=== PATIENT | male | born 1955 | race Caucasian/White ===

== ENCOUNTER 2024-06-24 19:18 | Inpatient (IN) | payer OTHER, SELFPAY ==
[2024-06-24] VITALS (60 sets, daily range): BP systolic 68–133; BP diastolic 19–103; BMI 29.3; BMI 28.0
--- NOTE | 2024-06-24 16:47 | EDRN ---
1620 - Dr. Sims at the bedside
1631 - cardizem bolus 10mg IVP given with verbal order from Dr. Sims
1636 - amiodarone bolus 150mg IVP given with verbal order from Dr. Sims
[2024-06-24 16:52] LABS: % Basophils 0.2 % (0-2); % Eosinophils 0.2 % (0-6); % Immature Granulocytes 0.3 % (0-0.5); % Lymphocytes 16.8 % (20.5-51.1); % Monocytes 14.4 % (1.7-9.3); % Neutrophils 68.1 % (42.2-75.2); Absolute Lymphocytes 2.1 10^3/uL (1.2-3.4); Absolute Monocytes 1.8 10^3/uL (0.1-0.6); Absolute Neutrophils 8.3 10^3/uL (1.4-6.5); Hematocrit 44.6 % (39.0-52.0); Hemoglobin 16.1 g/dL (13.0-18.0); Mean Corp Hgb Conc. 36.1 g/dL (33.0-37.0); Mean Corpuscular Hgb 32.5 pg (27.0-31.0); Mean Corpuscular Volume 89.9 fL (80.0-94.0); Mean Platelet Volume 10.1 fL (7.4-10.4); Nucleated Red Blood Cells % 0 % (-); Platelet Count 240 10^3/uL (130-400); Red Blood Cell Count 4.96 10^6/uL (4.70-6.10); Red Cell Dist. Width 12.6 % (11.5-14.5); White Blood Cell Count 12.2 10^3/uL (4.8-10.8)
[2024-06-24 17:01] LABS: APTT 27.5 Sec (23.4-35.0); INR 1.08; PT 14.3 Sec (11.4-14.6)
--- NOTE | 2024-06-24 17:01 | EDRN ---
Patient with worseninghypertensive with BP in the 60s systolic
Dr. Gatica at the bedside to cardiovert the patient per on-call transportation economics teacher Bernie.
1655 50mcg Fentanyl IVP given with verbal orders from Dr. Miguel
1655 shock delivered at 200j with Dr. Gatica at the bedside and 2 nurses.
Patient currently parrish in the rate of 30s after shock.
1658 atropine IVP given with verbal order from Dr. Gatica at the bedside.
Dr. miguel contacting cardiology
[2024-06-24 17:04] LABS: ALT (SGPT) 26 U/L (0-50); AST (SGOT) 49 U/L (17-59); Albumin 4.2 g/dl (3.5-5.0); Alkaline Phosphatase 79 U/L (38-126); Blood Urea Nitrogen 43 mg/dl (9-20); Calcium 9.7 mg/dl (8.4-10.2); Carbon Dioxide 17 mmol/L (22-30); Chloride 102 mmol/L (98-107); Estimated Creatinine Clearance 67 ml/min; Glucose 123 mg/dl (70-99); Potassium 5.2 mmol/L (3.5-5.1); Sodium 129 mmol/L (135-145); Total Bilirubin 2.5 mg/dl (0.2-1.3); eGFR > 60.00
--- NOTE | 2024-06-24 17:49 | CON.CAR ---
Addendum entered and electronically signed by Wendi Milner DO 06/24/24 22:40:
Offered to call patient's family however he declined. He stated that he makes all his own decisions
Original Note:
Consultation
Consultation Request
Date/Time Consultation Requested: 06/24/24
Date/Time Consultation Performed: 06/24/24
Requesting Provider: Sonam Sims
Performing Provider: Dr. Milner
Reason for Consultation: WCT/ CP
Medical History
-
Chief Complaint: CP
History of Present Illness:
I met Shivam Sanchez in the ED bed 23 after he presented by EMS complaining of chest pain and shortness of breath. He reports that last night he developed midsternal chest pain that would radiate to his neck jaw and back which persisted
throughout the day with worsening weakness. He denies syncope. He denies fevers or recent illnesses. He denies nausea vomiting or abdominal pain. Per EMS, nursing facility reported bradycardia and hypotension however he arrived in a wide-complex
tachycardia in the 170s., ER administered 25 mg of IV Cardizem which did not break arrhythmia however did cause hypotension. He was also administered 150 mg of amiodarone. ER proceeded with synchronized cardioversion with 100 J x 1 after 100 mg
of fentanyl due to hypotension with systolic blood pressures in the 60s. Post cardioversion he had a prolonged sinus arrest however did not lose a pulse status post atropine with heart rates now sinus in the 40s and 50s. Blood pressures improved
post cardioversion to 80s over 60s with maps greater than 65. When patient was seen he was sleepy but appropriate and following commands. He reports chest pain had improved and nearly resolved; he offers no further complaints
.
Shivam has a history of alcoholic cirrhosis [facility]. He has needed recurrent paracentesis approximately every 6 months but denies SBP or esophageal varices. He also has a history of hepatitis C, bilateral varicose
veins, anasarca and chronic lower extremity edema. He is maintained on lactulose, spironolactone 100 mg daily, Lasix 80 mg daily, nadolol 20 mg daily, and folate. Is currently a resident of [facility] and has been sober for years. He states
that he had a history of atrial fibrillation he believes during a hospitalization at [facility] in 2022 but is not chronically anticoagulated. He does not routinely follow with a embedded software architect however had been previously seen by someone years ago in
the [facility]. He states that at some point he was offered a pacemaker but refused. He denies a history of known coronary artery disease, stroke or TIA.
Past medical history: Alcoholic cirrhosis with ascites, prior alcohol use disorder, history of atrial fibrillation, history of bradycardia, anasarca/chronic lower extremity edema, history of hepatic encephalopathy, history of rheumatoid arthritis,
hypertension, hyperlipidemia, history of hepatitis C
Past surgical history: Tonsillectomy, paracentesis
Family history: Limited by patient's acute illness.
Past Medical History
Past Medical History: Other (See HPI)
Past Surgical History: Other (See HPI)
Social History
Tobacco: Non-Smoker
Alcohol: Former (Former alcohol)
Drug: None
Living: Snf ([facility])
Employment: Not Employed
Family History
Family History: Unable to Obtain
Allergies / Home Medications
Allergy/AdvReac Type Severity Reaction Status Date / Time
No Known Allergies Allergy Unverified 08/24/23 10:36
Review of Systems
-
History Source: Patient and Physician
All other systems: Negative unless noted
Constitutional: Fatigue and Sleep Disturbance
EENT: No Symptoms
Respiratory: Trouble Breathing
Cardiac: Chest Pain and Diaphoresis
Abdomen/GI: No Symptoms
: No Symptoms
Musculoskeletal: Edema
Neurological: Dizzy and Weakness
Endocrine: No Symptoms
Hematologic/Lymphatic: No Symptoms
Physical Exam
Vital Signs
Pulse Resp BP Pulse Ox
45 20 83/67 92
06/24/24 17:15 06/24/24 17:15 06/24/24 17:15 06/24/24 17:06
Lab Results
06/24/24 16:37
06/24/24 16:37
Troponin I 1.190 ng/ml H* 06/24/24 16:37
Physical Exam
General: Other (68-year-old gentleman appears older than stated age. Sleepy but arousable and appropriate following fentanyl and cardioversion in the ED.)
HEENT: Normocephalic, Anicteric and Moist Mucous Membranes
Respiratory: Other (Bronchovesicular breath sounds, decreased at the bases. No wheezes)
Cardiac: Other (Bradycardic. Positive S1-S2. No murmurs)
GI: Soft, Distended and Other (No significant ascites appreciated)
Musculoskeletal: Edema (++. Bilateral lower extremity varicosity)
Neuro: AO x 3 and Nonfocal/Grossly Intact
Psych: Calm
Impression / Plan
-
Impression:
Unstable wide-complex tachycardia at 170 bpm, VT versus SVT with aberrancy status post cardioversion with 100 J 06/24/2024 in the ED
Post cardioversion sinus arrest
Sinus bradycardia
Chest pain/abnormal EKG/elevated troponin consistent with non-ST elevation myocardial infarct
Possible history of prior atrial fibrillation
Hyponatremia
Hyperkalemia on outpatient Aldactone 100 mg daily
Alcoholic cirrhosis with history of hepatic encephalopathy
Prior history of therapeutic paracentesis, last 6 months ago
Hepatitis C
Anasarca/venous insufficiency/chronic lower extremity edema
History of hypertension
Prior alcoholic
Chest x-ray post cardioversion: No acute cardiopulmonary process
EKG June 24, 1699 post cardioversion, sinus bradycardia, heart rate 51 with PACs, LVH, T wave abnormality in the inferior lateral leads concerning for ischemia
Bedside echocardiogram in the ED: Normal left ventricular size with mild left ventricular hypertrophy. Mildly reduced left ventricular systolic function estimated 40-45% Mid inferior lateral and inferior todd are hypokinetic. Grade 1 diastolic
dysfunction. Dilated, mildly hypokinetic right ventricle. Biatrial dilatation. Trileaflet sclerotic aortic valve without significant stenosis. Trace aortic regurgitation. Mildly dilated aortic root, 4 cm at the sinus of Valsalva, 4 cm at the
proximal ascending aorta. Mild mitral and tricuspid regurgitation. Estimated pulmonary artery systolic pressure 20 mmHg. No significant pericardial effusion.
Plan:
ACS with chest pain/unstable wide-complex tachycardia regarding cardioversion and abnormal EKG
- Case discussed with interventional cardiology. No ST elevation and improved chest pain complaints following cardioversion; will not proceed urgently to [facility].
-Admit to ICU
-Initial cardiac troponin 1.19; trend
- Given hypotension will start Levophed for maps greater than 65
-Aspirin 325 previously given will continue aspirin 81 mg daily
- Coagulation profile within normal limits; will start IV heparin without bolus
- Will hold AV bakari blocking agents and further amiodarone as heart rates are currently sinus in the mid 40s
- Maintain pacer pads
- Monitor closely on telemetry for recurrent arrhythmia. If heart rates improve or if further arrhythmia, we will start amiodarone
-Check lactate
-Hold outpatient nadolol and Lasix
-TSH normal, 3.16
-Check lipid profile and will empirically start atorvastatin 20 mg daily
- Expectant left heart catheterization this admission
Alcoholic cirrhosis/hepatitis C with history of hepatic encephalopathy and ascites requiring paracentesis
- Coagulation profile within normal limits
- Hemoglobin, platelet count normal. LFTs within normal limits. Ammonia level normal.
- Hold outpatient spironolactone
Data Reviewed
-
EKG: Tracing Personally Visualized and interpreted
Radiology: Report Reviewed by me
Labs: Labs Reviewed by me
Old Records: Reviewed
Total Time Spent with Patient (in minutes): 60
[2024-06-24 17:50] LABS: Ammonia 20 umol/L (9-30); Phosphorus 4.5 mg/dl (2.5-4.5)
[2024-06-24] MEDS: LEVOPHED 250 IV (17:50)
--- NOTE | 2024-06-24 18:04 | ED.GENMED ---
History of Present Illness
General
Chief Complaint: Chest Pain
Time Seen by Provider: 06/24/24 16:38
History of Present Illness
History of Present Illness:
68-year-old male with prior history of alcohol abuse with alcoholic liver disease and hypertension presenting from nursing facility for report of bradycardia and hypotension. Patient arrives by medics, noted to be tachycardic to the 170s and
hypertension. Patient arrives complaining of substernal chest pain and difficulty breathing. Denies any history of heart attack in the past, however does report that he has had an elevated heart rate in the past. He also has prior history of
atrial fibrillation, however is not on any rate controlling medications or blood thinners. Denies fever or cough. Denies abdominal pain. Denies any recent history of alcohol abuse, has not drank in several years. Patient used to have to get
paracentesis, however was now maintained on water pills. Denies additional acute medical complaints
Past History
Past History
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
ED Past Surgical History: Tonsilectomy (and adenoids)
Social History
Tobacco: Former smoker
Alcohol: Former
Personal:
Living: long-term ([facility])
Phy Exam
Physical Exam
Physical Exam:
General: Well-appearing, no clinical signs of dehydration, nontoxic and in no acute distress
HEENT: protecting airway
Neck: appears supple
CV: tachycardic, regular rhythm, no evidence of cyanosis
Resp: No accessory muscle use, no increased work of breathing, lungs clear to auscultation bilaterally
Abd: Soft and non-distended, no tenderness to palpation
Extremities: No deformities, no swelling
Neuro: alert, no focal neurologic deficit
: deferred
Rectal: deferred
Psych: Normal affect
Skin: Intact
Scores
Heart Score for Chest Pain Patients
STEMI patient?: No
History: Moderately Suspicious
ECG: Significant ST-Depression
Age: >/= 65 years
Risk Factors: 1 or 2 Risk Factors
Troponin: >1 - <3 x Normal Limit
Heart Score for Chest Pain Patients: 7
Heart Score Risk: 72.7 % MACE over next 6 weeks
Course
Orders/Labs/Results
Orders:
Orders
06/24/24 Breakfast
Cholesterol Lowering
At Your Request: Full Participation
Cholesterol Lowering: Sodium, 2 Gram
06/24/24 16:25
EKG [Electrocardiogram (*1)] Urgent
Reason for Study: Chest Pain
EKG- Treatment ONCE
06/24/24 16:29
Diltiazem HCl [Cardizem] 25 mg .ROUTE .STK-MED ONE
06/24/24 16:34
Amiodarone [Cordarone] 150 mg .ROUTE .STK-MED ONE
06/24/24 16:37
Complete Blood Count/With Diff Urgent
Comprehensive Metabolic Panel Urgent
PTT Urgent
Prothrombin Time Urgent
Troponin I Urgent
06/24/24 16:45
Amiodarone [Cordarone] 900 mg DEXTROSE 5% PVC-free BAG [D5W PVC-free BAG] 500 ml IV PER PROTOCOL
06/24/24 16:53
Fentanyl Citrate/Pf [Sublimaze] 100 mcg .ROUTE .STK-MED ONE
06/24/24 16:57
EKG [Electrocardiogram (*1)] Stat
Reason for Study: Bradycardia / Tachycardia
Atropine Sulfate [Atropine 0.1 mg/ml Syringe] 1 mg .ROUTE .STK-MED ONE
06/24/24 16:58
EKG- Treatment ONCE
06/24/24 16:59
EKG [Electrocardiogram (*1)] Urgent
Reason for Study: Chest Pain
EKG- Treatment ONCE
06/24/24 17:20
Echo 2D MMode Color/Doppler [Echo 2D MMode Color/Doppler] Urgent
Reason for Study: cardiac
06/24/24 17:23
Ammonia Urgent
Magnesium Urgent
Phosphorus Urgent
06/24/24 17:30
DOPamine 400 MG/D5W 250 ML [DOPamine 400 MG] 400 mg in 250 ml IV PER PROTOCOL
Currently infusing. Continue current dose and titrate:: Yes
Titrate to keep:: MAP > 65 mmHg
Titrate by mcg/kg/min:: 1-2 mcg/kg/min
Frequency of titrations (minutes):: 15
Maximum dose in ICU in mcg/kg/min:: 20
Maximum dose in IMU in mcg/kg/min:: 10
Begin to taper infusion when:: Remained at goal for 4hrs
Taper by mcg/kg/min:: 1-2 mcg/kg/min
Frequency of taper (minutes) if patient maintains goal:: 30
Taper to off?: Yes
If infusion off & no longer maintaining goal:: Contact Provider
06/24/24 17:32
NORepinephrine 4 MG/250 ML [Levophed] 4 mg in 250 ml .ROUTE .STK-MED
06/24/24 18:00
NORepinephrine 4 MG/250 ML [Levophed] 4 mg in 250 ml IV PER PROTOCOL
Initial dose in mcg/min, then titrate:: 2
Titrate to keep:: SBP > 90 mmHg
Titrate by mcg/min:: 1-2 mcg/min
Frequency of titrations (minutes):: 5
Maximum dose in ICU in mcg/min:: 30
Maximum dose in IMU in mcg/min:: 8
Maximum dose in IVU in mcg/min:: 4
Begin to taper infusion when:: Remained at goal for 4hrs
Taper by mcg/min:: 1-2 mcg/min
Frequency of taper (minutes) if patient maintains goal:: 30
Taper to off?: Yes
If infusion off & no longer maintaining goal:: Contact Provider
06/24/24 18:42
CR Chest Portable - 1 View Urgent
Comment:
Reason For Exam: chest pain
Reason Study Needs to be Portable: Patient Unstable
06/24/24 18:45
Admit/Transfer Patient As Directed
Co-Sign Provider:
Level of Care: Inpatient admission
Assign to:: ICU
Physician / Group: [facility]
Diagnosis: NSTEMI
Reason for Hospitalization: NSTEMI
Expected length of stay greater than two midnights?: Yes
ELOS- Estimated Length of Stay in days: 3
I certify the patient meets the requirements for IP care: Yes
PRN Pain Medication Management As Directed
May give lesser potent ordered pain med per pt: Yes
preference::
Protocol:: Medication orders for pain may be administered in a
manner that supports deferring to patient preference
when the pt is:
- Requesting an ordered lesser potent pain medication.
Least to most potent pain medications are defined
as: acetaminophen < NSAID < tramadol < opioids
(morphine, oxycodone, hydromorphone).
- Requesting a lesser dose of the same medication IF
ORDERED.
- Requesting a less intrusive route of administration
if both routes are prescribed by the provider (PO <
IV).
06/24/24 18:46
Code Status As Directed
Resuscitation Status: Full Code
06/24/24 18:55
Lactic Acid Urgent
TSH Reflex To Free T4 Routine
06/24/24 19:33
Aspirin 325 mg PO NOW STA
06/24/24 20:43
Electrocardiogram (*1) Q6H
Reason for Study: Chest Pain
Comment: at admission and Q3H for total of 3, to be done with each troponin
06/24/24 20:43
CARDIOLOGY CONSULT Routine
Consulting Provider: Wendi Milner
Was physician already notified: Yes
Activity As Directed
Activity Level: As Tolerated
INT (Intravenous Needle Therapy) As Directed
Comment: maintain peripheral IV access
Intake/ Output As Directed
Frequency: Per unit guidelines
Vital Signs As Directed
Frequency: q4h
Weight As Directed
Frequency: Daily
DX Deep Vein Thrombosis Video Routine
06/24/24 22:00
Lorazepam [Ativan] 0.5 mg PO HS
Trazodone [Desyrel] 50 mg PO HS
06/24/24 23:30
Troponin I Q3H
Comment: at admit & Q3H for 3 total including ED draws, obtain ECG with each level
06/24/24 23:43
Troponin I Q3H
Comment: at admit & Q3H for 3 total including ED draws, obtain ECG with each level
06/25/24 02:43
Electrocardiogram (*1) Q6H
Reason for Study: Chest Pain
Comment: at admission and Q3H for total of 3, to be done with each troponin
06/25/24 06:00
Basic Metabolic Panel IN AM
Cardiovascular Evaluation IN AM
Complete Blood Count/No Diff IN AM
06/25/24 08:00
Aspirin Chewable [Low Strength Aspirin] 81 mg PO DAILY
FOLic ACID [Folvite] 1 mg PO DAILY
Lactulose [Duphalac/Chronulac] 30 grams PO DAILY
Pantoprazole [Protonix] 40 mg PO DAILY
Tamsulosin [Flomax] 0.4 mg PO DAILY
06/25/24 08:43
Electrocardiogram (*1) Q6H
Reason for Study: Chest Pain
Comment: at admission and Q3H for total of 3, to be done with each troponin
06/25/24 18:00
Enoxaparin Sodium [Lovenox] 40 mg SC QPM
06/26/24 06:00
Basic Metabolic Panel IN AM
Complete Blood Count/No Diff IN AM
06/27/24 06:00
Basic Metabolic Panel IN AM
Complete Blood Count/No Diff IN AM
06/28/24 06:00
Basic Metabolic Panel IN AM
Abnormal Lab Results
06/24/24 06/24/24
16:37 18:55
WBC 12.2 H 10^3/uL
(4.8-10.8)
MCH 32.5 H pg
(27.0-31.0)
Absolute Neuts (auto) 8.3 H 10^3/uL
(1.4-6.5)
Absolute Monos (auto) 1.8 H 10^3/uL
(0.1-0.6)
Lymphocytes % 16.8 L %
(20.5-51.1)
Monocytes % 14.4 H %
(1.7-9.3)
Sodium 129 L mmol/L
(135-145)
Potassium 5.2 H mmol/L
(3.5-5.1)
Carbon Dioxide 17 L mmol/L
(22-30)
BUN 43 H mg/dl
(9-20)
Glucose 123 H mg/dl
(70-99)
Lactic Acid 2.1 H mmol/L
(0.7-2.0)
Total Bilirubin 2.5 H mg/dl
(0.2-1.3)
Troponin I 1.190 H* ng/ml
06/24/24 16:37
06/24/24 16:37
Vital Signs
Initial and Last Documented VS:
Initial Vital Signs
Pulse Resp BP Pulse Ox
172 21 105/73 99
06/24/24 16:30 06/24/24 16:30 06/24/24 16:30 06/24/24 16:30
Last Documented Vital Signs
Temp Pulse Resp BP Pulse Ox
97.8 F 57 20 122/82 97
06/24/24 23:13 06/24/24 21:30 06/24/24 21:30 06/24/24 21:30 06/24/24 21:01
Procedures
Cardioversion
Indication:: Other (Wide-complex tachycardia, unstable)
Performed by:: Sonam Sims DO
Synchronized?: Yes
Energy Used: Other (100 J)
Number of attempts: 1
Successful?: Yes
Complications: bradycardia
ASA Risk Score: Class III
Any reaction or bad outcome to prior sedation/anesthesia?: No history of a reaction
Sedation level to be attained: minimal
Chart and allergies reviewed: Yes
Patient reassessed prior to sedation: Yes
Time out completed at (validating right patient & procedure): 16:55
History of difficult intubation: No
Airway free of obstruction: Yes
Patient has a gag reflex: Yes
Patient is able to open mouth: Yes
Patient has no dentures: Yes
Patient has no loose teeth: Yes
Medication administered by Provider during Moderate Sedation: Other (IV Fentanyl)
Total dose administered: 100
Time drug administered: 16:55
Start Time: 16:55
Stop Time: 17:05
MDM/Problems Addressed
MDM/Problems Addressed:
68-year-old male with history of alcoholic liver disease and high blood pressure presenting for elevated heart rate, chest pain, difficulty breathing. Vital signs on arrival significant for tachycardia and mildly low blood pressure.
Patient seen immediately upon arrival to the hospital given unstable heart rate. However during initial examination, maintaining blood pressure and mental status. Patient reporting chest pain difficulty breathing with ACS being a consideration,
however no clear STEMI criteria given difficult interpretation with profound tachycardia. Due to remote history of A-fib, potential A-fib with RVR. Blood pressure initially stable, trial of diltiazem bolus, however without any success or
improvement of heart rate. At this time concern for patient's wide-complex tachycardia, with blood pressure dropping. However patient maintaining mental status. Amio bolus administered. Will discuss with cardiology on-call with likely plan for
denies cardioversion
17:00 -in discussion with cardiology, given low blood pressure with tachycardia, recommending to grenade cardioversion. Systolic now in the 60s so in discussion with patient, will not perform moderate sedation. 100 mcg of fentanyl given,
synchronized cardioversion to 100 J. Patient subsequently became profoundly bradycardic, however never lost pulses. Heart rate recovered after atropine, now in the 40s to 50s range. No significant sign of heart block. Patient however does
mention that in the past there was mention of potentially needing a pacemaker.
17:20 - Cardiology to bedside. Recommending echo and Levophed for patient's blood pressure. Plan for admission with continued cardiology consultation. Troponin is elevated, however no signs of STEMI on repeat EKG. Aspirin had been administered
prehospital. Will likely benefit from continued cardiac monitoring, potential catheter
*EKG
Interpreted by ED Provider?: Yes
EKG Intrepretation Date: 06/24/24
EKG Intrepretation Time: 18:08
Interpretation: abnormal
Comparison EKG: no comparison EKG present
Heart Rate: 170
Rate: tachycardiac
Rhythm: sinus
[place]: left axis deviation
QRS Pattern: wide non-specific and left vent hypertrophy
Ischemia: non-specific ST changes
*Critical Care Note
Total Time (30-74mins, 75-104mins- exclusive of procedures): 62
comment:
The high probability of a clinically significant, sudden or life threatening deterioration of the cardiovascular system(s) required my full and direct attention, intervention and personal management. The aggregate critical care time was 62 minutes.
This time is in addition to time spent performing reported procedures but includes the following:
[x] Data Review and interpretation
[x] Patient assessment and monitoring of vital signs
[x] Documentation
[x] Medication orders and management
ED Attending Note
-
Portions of this chart may have been created with voice recognition software.� Occasional wrong word or��sound alike� substitutions may have occurred due to the inherent limitations of voice recognition software.
Discharge Plan
Departure
Patient Disposition: Admit
Date of Disposition: 06/24/24
Time of Disposition: 18:24
Presentation/result/management discussed w/ accepting MD/DO: Hospitalist
Patient with high blood pressure during this ER visit?: No
Condition: Critical
Discharge Problem:
Chest pain, Wide-complex tachycardia, Bradycardia, Hypotension
Interventions
Interventions:
*General Assessment Last Done: 06/24/24 16:55
*Neglect/Abuse Screening Last Done: 06/24/24 16:55
*ED- Fall Risk Assessment Last Done: 06/24/24 16:55
*Nursing Disposition Last Done: 06/24/24 20:38
ED- Cardiac Assessment Last Done: 06/24/24 16:55
Discharge Date and Time
Discharge Date/Time: 06/24/24 20:38
--- NOTE | 2024-06-24 18:24 | HPS.HSE ---
Addendum entered and electronically signed by ROBBIE Ruiz 06/24/24 21:24:
patient complained of chest pain. noted to have elevated trop and EKG changes. d/w sound mixer and started him on heparin drip. as per cardiology, if he continued to have chest pain, cardiology plan to take him to cardiac cath.
Original Note:
Family Physician
-
Family Physician: Adria Cifuentes
Chief Complaint
-
chest pain
History of Present Illness
68-year-old male with prior history of alcohol abuse with alcoholic liver disease and hypertension presenting from nursing facility with generalized weakness. he got his Lasix at [facility], since then felt weird, weak. he complained of mid
sternum pain radiating to his neck, jaw and back. he was complaining of sob. denied UNDERWOOD,dizzy or syncope. denied abdominal pain,n,v,d. denied dysuria or hematuria.
upon arrival he was tachycardic and hypotensive. Patient received amiodarone and diltiazem with no relief. Patient underwent cardioversion then he was noted bradycardic for which he received atropine. Patient was started on Levophed for
hypotension. Admitting for further management
patient has hxt of bradycardia but refused pacemaker in the past.
Medical History
Past Medical History
Past Medical History: Reports Other
Additional Past Medical History:
Depression, hypertension, alcoholic cirrhosis of liver with ascites anxiety, GERD, BPH, paroxysmal A-fib
Past Surgical History: Reports Other
Additional Past Surgical History:
Tonsillectomy and adenoidectomy
Social History
Tobacco: Non-smoker
Alcohol: Former
Drug: None
Living: [facility]
Family History
Family History: Not pertinent
Allergies / Home Medications
Allergies reflects when Allergies were last updated in [facility].
Home Medications with original date entered in [facility]
Allergy/Medication List:
Allergies
Allergy/AdvReac Type Severity Reaction Status Date / Time
No Known Allergies Allergy Unverified 08/24/23 10:36
Home Medications
acetaminophen 325 mg tablet 650 mg PO Q6H PRN mild pain, temp>100.4 06/24/24
acetaminophen 500 mg tablet 1,000 mg PO Q6H PRN mod pain 06/24/24
acetaminophen 650 mg rectal suppository 650 mg MS Q4H PRN temp>100 06/24/24
bisacodyl 10 mg rectal suppository 10 mg MS DAILYPRN PRN if no results from MOM 06/24/24
folic acid 1 mg tablet 1 mg PO DAILY 06/24/24
furosemide 80 mg tablet 80 mg PO DAILY 06/24/24
lactulose 10 gram/15 mL oral solution 45 ml PO DAILY 06/24/24
lorazepam 0.5 mg tablet 0.5 mg PO HS 06/24/24
magnesium hydroxide 400 mg/5 mL oral suspension (Milk of Magnesia) 30 ml PO HSPRN PRN if no bm in 3 days 06/24/24
nadolol 20 mg tablet 20 mg PO DAILY 06/24/24
pantoprazole 40 mg tablet,delayed release 40 mg PO DAILY 06/24/24
sodium phosphates 19 gram-7 gram/118 mL enema (Fleet Enema) 118 ml MS DAILYPRN PRN if no results after bisacodyl 06/24/24
spironolactone 100 mg tablet 100 mg PO DAILY 06/24/24
tamsulosin 0.4 mg capsule 0.4 mg PO DAILY 06/24/24
trazodone 50 mg tablet 50 mg PO DAILY 06/24/24
Review of Systems
-
Constitutional: Reports No Symptoms
EENT: Reports No Symptoms
Respiratory: Reports Trouble Breathing
Cardiac: Reports Chest Pain
Abdomen/GI: Reports No Symptoms
: Reports No Symptoms
Musculoskeletal: Reports No Symptoms
Skin: Reports No Symptoms
Neurological: Reports No Symptoms
Endocrine: Reports No Symptoms
Hematologic/Lymphatic: Reports No Symptoms
Psych: Reports No Symptoms
Physical Exam
Vital Signs
Vital Signs
Pulse Resp BP Pulse Ox
45 20 83/67 92
06/24/24 17:15 06/24/24 17:15 06/24/24 17:15 06/24/24 17:06
Physical Exam
General: Well Developed, Well Nourished and No Apparent Distress
HEENT: NormoCephalic, Moist mucous membranes and Atraumatic
Respiratory: Clear
Cardiac: S1/S2 and Regular Rhythm; No Murmur or Rub
GI: Soft, Non Tender, Non Distended and Normal Bowel Sounds; No Organomegaly
Rectal: Deferred by Provider
Musculoskeletal: No Clubbing, No Cyanosis and No Edema
Skin: No Rash
Neuro: AO x 3 and Nonfocal/grossly intact
Psych: Calm
Laboratory Results
-
06/24/24 16:37
06/24/24 16:37
Laboratory Results
PT 14.3 Sec (11.4-14.6) 06/24/24 16:37
INR 1.08 06/24/24 16:37
APTT 27.5 Sec (23.4-35.0) 06/24/24 16:37
Total Bilirubin 2.5 mg/dl (0.2-1.3) H 06/24/24 16:37
AST 49 U/L (17-59) 06/24/24 16:37
ALT 26 U/L (0-50) 06/24/24 16:37
Alkaline Phosphatase 79 U/L (38-126) 06/24/24 16:37
Troponin I 1.190 ng/ml H* 06/24/24 16:37
Data Reviewed
-
Lab Data: Labs Reviewed by me
Impression/Plan
-
# Chest pain associate with short of breath likely NSTEMI
- Continue to trend Trope
- Aspirin continued
-Cardiology consulted
# Sinus tachycardia/hypotension
# Remote history of A-fib
- Patient received a dose of diltiazem and albumin in ER with no significant improvement
- Received cardioversion, noted to have prolonged pause and sinus bradycardia
- Patient received atropine for bradycardia
-Initiated on Levophed
- Echo done at bedside
- Cardiology following patient
- Hold nadolol
# GERD
- PPI
# Leukocytosis likely reactive
- WBC 12.2, patient is afebrile
- Continue to monitor
# Hyponatremia/hyperkalemia/metabolic acidosis
# Hyper bili
# History of alcoholic liver disease
- Lactulose continued
# Insomnia
- Lorazepam, trazodone continued at bedtime
# BPH
- Tamsulosin continued
# DVT prophylaxis
- Lovenox subcu
# CODE STATUS
- Full code
--- NOTE | 2024-06-24 19:18 | W.PN.UPDATE ---
Update Note
Progress Note Update
This is an addendum to H&P written Shameka Livingston on 06/24/2024.� Patient seen examined independently with VERTICAL PUNCH OPERATOR.
68-year-old male past medical history of alcohol use disorder, alcoholic cirrhosis, history of hepatitis A, paroxysmal atrial fibrillation, bradycardia since his youth, hypertension, presenting with bradycardia and hypertension.� Tachycardic up to
170s and hypotensive.� Symptoms of chest pain and difficulty breathing.
Patient states she has a history of bradycardia in his youth and episodes of symptomatic bradycardia when he was older.� He apparently refused pacemaker previously.
Initially patient was maintaining blood pressure and mental status.� ACS was considered but no clear STEMI criteria were met.� Patient was given trial of diltiazem bolus without improvement in heart rate.� Amiodarone bolus was given without
improvement.� Cardioversion was attempted with prolonged pause after cardioversion.� Patient subsequently became profoundly bradycardic which improved after atropine with heart rate now in the 40s to 50s.
Afterwards patient was hypotensive with heart rate in 40s to 50s.� Cardiology saw at bedside and echocardiogram and Levophed was started.
Labs show WBC 12.� Sodium 129, potassium 5.2.� Troponin 1.19.� Original EKG showed wide-complex tachycardia heart rate of 170.� EKG after cardioversion shows sinus bradycardia with PACs heart rate 51.
Patient with blood pressure currently 90s to 100, heart rate 50s on Levophed.� Minimal chest discomfort at this time.
Patient presented with wide-complex tachycardia associated with hypotension seems to be ventricular tachycardia rather than SVT with aberrancy.� Afterwards he was bradycardic and hypotensive.� He is currently hemodynamically stable on Levophed.� TSH
pending.
He also has elevated troponin without EKG changes consistent with ACS.� This seems to be demand ischemia from tachycardia.� Continue to trend troponins.� Will empirically treat with aspirin for now.� Check echocardiogram.
Unclear if current heart rate of 50 is patient's baseline heart rate secondary to nadolol.� Unclear if he will require pacemaker or catheterization.� Hold nadolol.
Hyperkalemia and hyponatremia likely secondary to spironolactone.� Will hold all diuretics for now.�
[2024-06-24 19:25] LABS: Lactic Acid 2.1 mmol/L (0.7-2.0)
[2024-06-24] MEDS: ASPIRIN 325 MG PO (19:40)
[2024-06-24] MEDS: MORPHINE SULFATE 1 MG IV ×2 (20:04→21:39)
[2024-06-24 20:06] LABS: TSH Reflex To Free T4 3.16 uIU/ml (0.47-4.68)
[2024-06-24 20:47] LABS: Glucose - Point of Care 110 mg/dl (70-99)
[2024-06-24] MEDS: HEPARIN 25000 UNITS/250 ML IV (21:29)
[2024-06-24] MEDS: ATIVAN 0.5 MG PO (21:40)
--- NOTE | 2024-06-24 22:24 | PTCARENOTE ---
Pt arrived to ICU room 3367 from ER at 2026. Received pt on Levophed at 8mcg/min, see med titration flowsheet for titration details. Admission database completed. Physical assessment as documented in nursing shift assessment flowsheet. Sinus parrish
on monitor, HR in 50s, 1st degree AVB. Pt reporting chest pain, becoming increasingly restless, Morphine 1mg administered, see EMAR. Heparin drip started. ICU MOTOR EQUIPMENT LIEUTENANT Vicente Cornejo in communication with commercial lender Vicente Kinseyiring about plan for patient
regarding chest pain and ongoing plan of care.
[2024-06-24] MEDS: DESYREL PO (22:46)
--- NOTE | 2024-06-24 23:45 | PTCARENOTE ---
Pt going for cardiac cath at this time, taken by 2 laborer golf course RNs, currently on Levo at 6mcg/min and Heparin at 1200 units/hr, on O2 at 2LNC. Report called to laborer golf course prior.
[2024-06-25] VITALS (59 sets, daily range): BP systolic 76–150; BP diastolic 44–113; BMI 27.8
--- NOTE | 2024-06-25 00:02 | ITS.CL.CATH ---
Instructor Decorating - Catheterization
Cardiac Catheterization
Procedure Report:
LEFT AND RIGHT HEART CATHETERIZATION
Date of Procedure: June 24, 2024
Referring: Alex Mir.
PROCEDURES:
1. Left heart catheterization, coronary angiogram.
2. Moderate sedation.
3. Right heart catheterization
INDICATION: Shivam is a 68-year-old gentleman with past medical history of alcoholic cirrhosis with hepatic encephalopathy, prior history of large-volume paracentesis, last 1 performed about 6 months ago, hepatitis C, hypertension, anasarca/venous
insufficiency with chronic lower extremity edema, prior alcohol abuse, living now at [facility] who presented with ongoing substernal chest discomfort found to be in a wide-complex tachycardia with heart rates at 170 concerning for possible
ventricular tachycardia associated with hypotension requiring cardioversion with 100 J at bedside in the emergency room. Post cardioversion he had transient sinus arrest followed by sinus bradycardia. Given ongoing hypotension, he was initiated on
Levophed drip and the cath team was urgently called and given ongoing chest pain despite multiple doses of morphine. ECG did not show any evidence of ST elevations. There is poor R wave progression concerning for prior anterolateral infarct, age
indeterminate. Nonspecific ST-T wave changes were noted. He was given full dose aspirin and IV unfractionated heparin upon presentation.
ACCESS: Right radial artery, 6Fr. sheath, under US guidance.
Right brachial vein, 6 [place] sheath, under ultrasound guidance
HEMODYNAMICS : (mmHg)
RA (m) : 22
RV (s/d,m) : 46/16, 21
PA (s/d, m) : 47/27, 34
PCWP (m) : 25
PA saturation: 68.7% on room air
AO saturation: 90.8% on room air
RA saturation: 67.4% on room air
Cardiac Output : 5.8 L/min by Kati calculation
Cardiac Index : 2.67 L/min/m-2 by Kati calculation
Systemic vascular resistance: 874 dsc^(-5) on 6 mcg of Levophed
Pulmonary vascular resistance: 1.80 luna unit
AO (s/d) : 105/74, mean of 86
LVEDP : 25
No significant gradient across the aortic valve to suggest aortic stenosis.
CORONARY FINDINGS
Dominance: Right
Left Main Trunk (LMT): Large caliber vessel that gives rise to the LAD and LCx branches and is free of angiographic disease.
Left Anterior Descending Artery (LAD): Large caliber vessel that gives off 2 major small caliber diagonal branches as it courses along the anterior inter-ventricular groove before wrapping around the cardiac apex. Mid LAD has a 40 to 50% stenosis
just distal to D2 takeoff with ESTEFANI-3 flow into the distal vessel. D2 is a small caliber vessel with 2 serial 50 to 60% stenoses with ESTEFANI-3 flow into the distal portion.
Left Circumflex Artery (LCx): Large caliber vessel that gives off one major obtuse marginal (OM) branch as it courses along the atrio-ventricular (AV) groove. The LCx and its branches are free of angiographic obstructive disease. There is mild
diffuse atherosclerotic plaque
Right Coronary Artery (RCA): Large caliber dominant vessel that gives rise to the posterior descending artery (RPDA) and postero-lateral ventricular (RPLV) branches distally. Distal RCA has a smooth 60 to 70% stenosis but with ESTEFANI-3 flow into the
distal vessels.
SEDATION: 27 minutes of procedural sedation was utilized. IV Midazolam and IV Fentanyl were administered. An independent back office medical assistant was present to assist with and help manage the patient's level of consciousness and physiologic status.
RADIATION SUMMARY: Fluoro Time (min): 3.8, Dose (mGy): 562.1, DAP (Gy.cm2) : 40.9
Closure Device: There were no immediate intra-procedural complications. The sheath was pulled in the color laboratory technician and a vascular-band applied to the right wrist for radial artery hemostasis using the patent hemostasis technique.
CONCLUSIONS
1. Significantly elevated right left-sided filling pressures with normal cardiac output and significantly reduced systemic vascular resistance despite vasopressor support.
2. Distal RCA has a smooth 60 to 70% stenosis but with ESTEFANI-3 flow into the distal vessels.
3. Mid LAD has a 40 to 50% stenosis just distal to D2 takeoff with ESTEFANI-3 flow into the distal vessel. D2 is a small caliber vessel with 2 serial 50 to 60% stenoses with ESTEFANI-3 flow into the distal portion.
RECOMMENDATIONS
1. Wean radial band per protocol. Monitor right hand perfusion and for bleeding from the radial site following removal of the vascular-band following trans-radial access.
2. Would continue treatment for presumed non-ST elevation ME with daily baby aspirin, high intensity statin (if no contraindications from liver standpoint ) and IV unfractionated heparin x 48 hours.
3 Continue aggressive medical therapy and risk factor modification for secondary CAD prevention.
4. Defer management of vasodilatory shock and underlying cirrhosis to primary team.
Copy to: Alex Mir.
Yaneth Us MD, FACC, [facility]
--- NOTE | 2024-06-25 00:03 | W.PN.UPDATE ---
Update Note
Progress Note Update
Interventional cardiology update Note
Cath team was called and given patient has been complaining of ongoing 7 out of 10 substernal chest discomfort in the setting of hypotension requiring 6 mcg of Levophed with a drip based on noninvasive cuff blood pressures. Concern was for ongoing
ischemia and a high risk NSTEMI warranting a urgent left and right heart catheterization given concern for shock of unclear etiology. Bedside echocardiogram showed overall LVEF of 40 to 45%. Troponin increased from 1.19-1.53. Lactate mildly
elevated at 2.1. Sodium of 129, potassium of 5.1, bicarb of 17 with normal ammonia level.
I saw and examined patient at bedside with nursing there along with ICU PA. Despite reviewing the procedure, indication, alternatives, risk and benefits in extensive detail 2-3 times, patient had ongoing confusion in regards to the procedure and
Bringing up that his outpatient doctors had told him that his heart is strong not being able to understand what our concern was today. We try to reach out to his son as well as his sister on 3 separate numbers however we could not reach any family.
We were told that he signed a advance directive at [place] about 3 weeks ago which relate that he is full code. Given ongoing chest pain, we reviewed the procedure with him another time in significant detail again reviewing the risk and
benefits and alternatives and patient was now agreeable to proceed with a left and right heart catheterization. Serving as witnesses were nursing, my Marketing Representative staff, ICU PA and my rounding partner, Dr. Wendi Milner who initially evaluated the
patient at bedside in the emergency room.
Given all of the above, there was consensus to proceed with a left and right heart catheterization urgently.
Yaneth Us MD, [facility], [facility]
Total time spent: 52-minute
[2024-06-25 00:33] LABS: HCO3 23.1 mmol/L (21-28); O2 Saturation % 94.1 % (94-98); PCO2 40 mmHg (35-48); PO2 82 mmHg (83-108); pH 7.37 (7.35-7.45)
[2024-06-25 00:46] LABS: Lactic Acid 0.8 mmol/L (0.7-2.0)
[2024-06-25 00:55] LABS: ALT (SGPT) 27 U/L (0-50); AST (SGOT) 49 U/L (17-59); Albumin 3.6 g/dl (3.5-5.0); Alkaline Phosphatase 71 U/L (38-126); Blood Urea Nitrogen 46 mg/dl (9-20); Calcium 9.1 mg/dl (8.4-10.2); Carbon Dioxide 21 mmol/L (22-30); Chloride 102 mmol/L (98-107); Estimated Creatinine Clearance 89 ml/min; Glucose 131 mg/dl (70-99); Potassium 4.6 mmol/L (3.5-5.1); Sodium 130 mmol/L (135-145); Total Bilirubin 2.8 mg/dl (0.2-1.3); Total Protein 6.2 g/dl (6.3-8.2); eGFR > 60.00
--- NOTE | 2024-06-25 01:27 | PTCARENOTE ---
Pt arrived back from qc lab technician at approx 0100. Still on Levophed at 6mcg/min. Heparin drip on hold until 4 hours after arrival to ICU, approx 0500. TR band in place to R wrist, air to start being removed at 0245 (placed at 0045 per report from cath
pie bakery laborer). R brachial dressing (s/p sheath removal) is C/D/I, pt arrived back with skin tear lateral to that dressing, general antecubital area, entirely covered with tegaderm which is holding the gauze in place over right brachial. Pt is awake,
alert/oriented, conversive. SB 50s on monitor. SpO2 97% on RA. ICU CERTIFIED ART THERAPIST at bedside to place arterial line at this time.
[2024-06-25 02:26] LABS: Urine Albumin 2+ (Neg - Trace); Urine Bilirubin Negative (Negative); Urine Character Clear (Clear); Urine Color Yellow; Urine Glucose Negative (Negative); Urine Ketone Negative (Negative); Urine Leukocyte Negative (Negative); Urine Nitrite Negative (Negative); Urine Occult Blood Negative (Negative); Urine Urobilinogen Negative (Neg - 1+)
--- NOTE | 2024-06-25 03:42 | PTCARENOTE ---
Arterial line placement unsuccessful. Levophed has been weaned off, currently maintaining systolic BP >90. Air removed from TR band starting at 0205 instead of 0245, per ICU BLISTER RUST ERADICATOR ok to do so as pt's right hand was dusky/purple and cold with
questionable pulse ox reading in the 70s. AM labs including blood cultures obtained. Assessment unchanged. Pt has been restless at times, wanting to get OOB. Bed placed in chair position and pt has been less restless since then. Pt still c/o SOB at
times but pulse ox has been in high 90s on RA. Remains SB 50s on monitor.
[2024-06-25 03:52] LABS: Hematocrit 42.8 % (39.0-52.0); Hemoglobin 15.2 g/dL (13.0-18.0); Mean Corp Hgb Conc. 35.5 g/dL (33.0-37.0); Mean Corpuscular Hgb 32.1 pg (27.0-31.0); Mean Corpuscular Volume 90.3 fL (80.0-94.0); Mean Platelet Volume 9.7 fL (7.4-10.4); Platelet Count 176 10^3/uL (130-400); Red Blood Cell Count 4.74 10^6/uL (4.70-6.10); Red Cell Dist. Width 12.8 % (11.5-14.5); White Blood Cell Count 12.1 10^3/uL (4.8-10.8)
[2024-06-25 04:03] LABS: Lactic Acid 1.9 mmol/L (0.7-2.0)
[2024-06-25 04:05] LABS: Urine Amorphous Seen; Urine Hyaline Cast >15 /LPF (0-2); Urine Mucus Many; Urine Squamous Cell >30 /LPF (Few)
[2024-06-25 04:08] LABS: Urine Bacteria Many (Negative)
[2024-06-25 04:10] LABS: Blood Urea Nitrogen 45 mg/dl (9-20); Carbon Dioxide 23 mmol/L (22-30); Chloride 101 mmol/L (98-107); Estimated Creatinine Clearance 89 ml/min; Glucose 132 mg/dl (70-99); HDL Cholesterol 53 mg/dl; LDL Cholesterol, Calculated 187 mg/dl; Potassium 4.7 mmol/L (3.5-5.1); Sodium 131 mmol/L (135-145); Total Cholesterol 260 mg/dl (50-199); Triglyceride 102 mg/dl (10-149); Very Low Density Lipoprotein 20 mg/dl (0-30); eGFR > 60.00
--- NOTE | 2024-06-25 04:35 | PTCARENOTE ---
Levo turned back on shortly after 414 after two consecutive BPs had systolic reading in 80s. Amiodarone ordered after pt had arrived back from the rn labor and delivery, order placed by ICU [employer] based on recommendation from Dr. Us, however pt's HR has been in
50s (occasionally has gone down to upper 40s), per Vicente AVALOS, hold off on Amiodarone as long as pt's HR is in 50s.
--- NOTE | 2024-06-25 05:11 | PTCARENOTE ---
Heparin drip turned back on, next PTT due at 1100.
--- NOTE | 2024-06-25 05:25 | W.PN.UPDATE ---
Update Note
Progress Note Update
06/24/2024
2129 Patient continues to have chest pain rates 7/10 midsternal through his back which radiates up his neck to his head, throbbing stabbing pain. HR 50s bradycardic, SBP 100s on levophed gtt for hypotension/vasopressor. Patient wifty but oriented
to place and person, able to state recent events, but impulsive and frustrated that he wants to get out of bed to 'walk off the chest pain'. Dr. Milner, business development assistant updated on patient's continued chest pain. Recommendations received, heparin
gtt being initiated by RN and give 1mg IV morphine and continued re-evaluation of chest pain.
2229- Re-evaluation of patient's chest pain, he was able to dose off after having morphine, but woke up with unchanged chest pain rates 7/[address] Banegas updated, EKG obtained, and she discussed case with Dr. Us,
cardio-invasive. The Ship Design Teacher was activated to further evaluate the chest pain. The procedure was explained to the patient and all questions answered. Dr. Us and Dr. Banegas at patient's bedside, discussed heart catheterization procedure,
risk/benefits, and all questions answered. Family was attempted to be contacted, messages left by Dr. Us. Dr. Wu, manual arts teacher, updated on patient and case discussed, recommendations received.
0100- Patient received back to the ICU after heart cath. No acute coronary disease as culprit. Infection will be ruled out with slightly elevated lactic acid, blood and urine cultures to be sent, patient remains afebrile, hypotension is improving
and levophed gtt was titrated down. Heart rate 50s bradycardic, if heart rate increases or increased ectopy, amiodarone gtt to be started at 0.5mg.
Pat was attempted by myself, was unable to transduce waveform on the left radial. Good initial blood return but then when transducer was hooked up no blood return or waveform. Unable to use right arm because right radial band from heart cath,
hand also appears dusky and cool to touch, air was released earlier than protocol to allow circulation but no bleeding noted, band was checked by RN per protocol.
storage and backup administrator patient was completely weaned off levophed gtt. Pat deferred at this time because vasopressor is now off.
[2024-06-25] MEDS: LEVOPHED 250 IV (06:24)
[2024-06-25] MEDS: FOLVITE 1 MG PO (07:57)
[2024-06-25] MEDS: DUPHALAC/CHRONULAC 30 GRAMS PO (07:57)
[2024-06-25] MEDS: PROTONIX 40 MG PO (07:57)
[2024-06-25] MEDS: LOW STRENGTH ASPIRIN 81 MG PO (07:57)
[2024-06-25] MEDS: FLOMAX 0.4 MG PO (07:57)
--- NOTE | 2024-06-25 08:19 | CON.INTV ---
Consultation
Consultation Request
Date/Time Consultation Requested: 06/24/2024 - 1945
Date/Time Consultation Performed: 06/25/2024815
Requesting Provider: ROBBIE Ruiz
Performing Provider: Dr. Wu
Reason for Consultation: Shock
Medical History
-
Chief Complaint: Low BP + low HR
History of Present Illness:
68-year-old male with a past medical history of alcoholic cirrhosis with ascites, paroxysmal atrial fibrillation, depression, BPH, hypertension and insomnia who presents with hypotension + bradycardia. Patient lives at [facility] as he says he
was initially there for rehab and then was discovered to have liver disease which prolonged his stay. He endorsed SOB + chest pain on arrival here to the ER. He also said that he turned his head while at the intermediate and got very lightheaded
and dizzy and that was seem to trigger all of his symptoms. Initial EKG showed wide-complex tachycardia with ventricular rate 170 and QRS: 146 ms. We have no prior EKGs to compare to. He received amiodarone + Cardizem in the ER with no relief.
He was cardioverted and then became bradycardic for which he received atropine. He was breathing at 21 breaths/min, BP 105/73 and saturating 99% on room air. Initial labs showed mild leukocytosis to 12.2, INR 1.08, potassium 5.2, sodium 129, serum
bicarbonate level 17, lactate 2.1, T. bili 2.5, troponin initially 1.19, TSH 3.16, urinalysis with 11�15 urine WBC with many bacteria and POCT glucose 110. CXR showed no acute cardiopulmonary process. Cardiology consulted and diagnosed him with
ACS and Levophed was started and recommended to continue ASA while holding AV bakari blocking agents + amiodarone given his bradycardia. Patient was admitted to the ICU where his chest pain persisted. [employer] services consulted, and heparin
drip started. Patient then consented to a left and right heart catheterization showing significantly elevated right and left-sided heart filling pressures with preserved cardiac output with significantly reduced SVR despite him being on pressors.
Also a distal RCA 60 to 70% stenotic lesion with a mid LAD 40-50% lesion, and D2 50-60% stenotic lesions x 2. No PCI performed. He was transferred back to the ICU for further care.
When I saw the patient this morning he currently feels well, does not denying chest pain. He has been off Levophed since this morning at around 9 AM. Heart rate 59, BP 102/70 and he is saturating 99% on room air. He currently denies UNDERWOOD, nausea,
fevers or chills
PMHx: Alcoholic cirrhosis with ascites, paroxysmal A-fib, depression, BPH with LUTS, hypertension, insomnia
PSHx: Tonsillectomy, appendectomy
Past Medical History
Past Medical History: Other (Above as per HPI)
Past Surgical History: Other (Above as per HPI)
Social History
Tobacco: Non-smoker
Alcohol: Former
Drug: None
Living: Half-Way
Family History
Family History: Reviewed & Not Pertinent
Allergies / Home Medications
Allergies
Allergy/AdvReac Type Severity Reaction Status Date / Time
No Known Allergies Allergy Unverified 08/24/23 10:36
Home Medications
�Medication �Instructions �Recorded �Confirmed �Last Taken �Type
acetaminophen 325 mg tablet 650 mg PO Q6H PRN mild pain, 06/24/24 06/24/24 06/15/24 History
temp>100.4
acetaminophen 500 mg tablet 1,000 mg PO Q6H PRN mod pain 06/24/24 06/24/24 06/01/24 History
acetaminophen 650 mg rectal 650 mg UT Q4H PRN temp>100 06/24/24 06/24/24 Unknown History
suppository
bisacodyl 10 mg rectal suppository 10 mg UT DAILYPRN PRN if no 06/24/24 06/24/24 Unknown History
results from [facility]
folic acid 1 mg tablet 1 mg PO DAILY Supplement 06/24/24 06/24/24 06/24/24 11:20 History
furosemide 80 mg tablet 80 mg PO DAILY Fluid 06/24/24 06/24/24 06/23/24 08:10 History
Retention/Swelling
lactulose 10 gram/15 mL oral 45 ml PO DAILY Constipation 06/24/24 06/24/24 06/24/24 11:20 History
solution
lorazepam 0.5 mg tablet 0.5 mg PO HS Mental Health/Anxiety 06/24/24 06/24/24 06/23/24 21:30 History
magnesium hydroxide 400 mg/5 mL 30 ml PO HSPRN PRN if no bm in 3 06/24/24 06/24/24 Unknown History
oral suspension (Milk of Magnesia) days
nadolol 20 mg tablet 20 mg PO DAILY Blood Pressure 06/24/24 06/24/24 06/23/24 08:10 History
pantoprazole 40 mg tablet,delayed 40 mg PO DAILY GERD 06/24/24 06/24/24 06/24/24 06:10 History
release
sodium phosphates 19 gram-7 118 ml UT DAILYPRN PRN if no 06/24/24 06/24/24 Unknown History
gram/118 mL enema (Fleet Enema) results after bisacodyl
spironolactone 100 mg tablet 100 mg PO DAILY Fluid 06/24/24 06/24/24 06/23/24 08:10 History
Retention/Swelling
tamsulosin 0.4 mg capsule 0.4 mg PO DAILY Urinary Issue 06/24/24 06/24/24 06/23/24 18:05 History
trazodone 50 mg tablet 50 mg PO DAILY Mental 06/24/24 06/24/24 06/23/24 21:30 History
Health/Anxiety
Review of Systems
-
History Source: Patient
All other systems: Negative unless noted
Vitals / Labs / Diagnostic Testing
Vital Signs
Temp Pulse Resp BP Pulse Ox
98 F 59 19 93/44 99
06/25/24 03:39 06/25/24 07:15 06/25/24 07:15 06/25/24 07:15 06/25/24 08:00
Lab Data
06/25/24 03:35
06/25/24 03:35
Laboratory Results
06/24/24 06/24/24 06/25/24
16:37 21:16 00:27
PT 14.3
INR 1.08
APTT 27.5 Cancelled
pH 7.37
pCO2 40
pO2 82 L
HCO3 23.1
O2 Delivery Level
Diagnostic Testing:
Physical Exam
-
HEENT: Normocephalic and Anicteric
Cardiovascular: S1/S2, Rub (negative) and Peripheral Edema (+1 lower extremity pitting edema bilaterally)
Respiratory: Wheeze (negative), Rales (negative), Rhonchi (negative) and Non-Labored Respirations
GI: Soft, Non Distended, Non Tender and Normal Bowel Sounds
Neurology: AO x 3 and Tremors (negative)
Skin: Warm and Dry
General: Respiratory Distress (negative), Comfortable, Fever (negative) and Chills (negative)
Assessment
-
Assessment: 68-year-old male with a past medical history of alcoholic cirrhosis with ascites, paroxysmal atrial fibrillation, depression, BPH, hypertension and insomnia who presents with hypotension + bradycardia. Patient lives at [facility] as
he says he was initially there for rehab and then was discovered to have liver disease which prolonged his stay. He endorsed SOB + chest pain on arrival here to the ER. He also said that he turned his head while at the intermediate and got very
lightheaded and dizzy and that was seem to trigger all of his symptoms. Initial EKG showed wide-complex tachycardia with ventricular rate 170 and QRS: 146 ms. We have no prior EKGs to compare to. He received amiodarone + Cardizem in the ER with
no relief. He was cardioverted and then became bradycardic for which he received atropine. He was breathing at 21 breaths/min, BP 105/73 and saturating 99% on room air. Initial labs showed mild leukocytosis to 12.2, INR 1.08, potassium 5.2,
sodium 129, serum bicarbonate level 17, lactate 2.1, T. bili 2.5, troponin initially 1.19, TSH 3.16, urinalysis with 11�15 urine WBC with many bacteria and POCT glucose 110. CXR showed no acute cardiopulmonary process. Cardiology consulted and
diagnosed him with ACS and Levophed was started and recommended to continue ASA while holding AV bakari blocking agents + amiodarone given his bradycardia. Patient was admitted to the ICU where his chest pain persisted. [employer] services
consulted, and heparin drip started. Patient then consented to a left and right heart catheterization showing significantly elevated right and left-sided heart filling pressures with preserved cardiac output with significantly reduced SVR despite
him being on pressors. Also a distal RCA 60 to 70% stenotic lesion with a mid LAD 40-50% lesion, and D2 50-60% stenotic lesions x 2. No PCI performed. He was transferred back to the ICU for further care.
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
Impression:
#Cardiogenic shock - shock state now resolved
#Wide-complex tachycardia likely due to SVT with aberrancy in the setting of LBBB vs VT
#CAD
#Leukocytosis
#Hyponatremia
#Hyperbilirubinemia
#Elevated troponin
#Paroxysmal A-fib (documented by the BUILDING CONSULTANT following him at [facility])
#Reported history of alcoholic cirrhosis with ascites requiring paracentesis in the past
#Reported history of RA
#Reported history of hepatitis C
#History of bradycardia
Plan:
- Given patient's wide-complex tachycardia, elevated troponin and continued chest pain, he was brought to a left and right heart catheterization on 06/25 which showed left-sided heart failure with multiple lesions in the distal RCA, mid LAD + D2
vessels. No PCI performed.
- Cardiology following and recommendations appreciated
- EKG today shows suspected left bundle branch block, and this is likely the cause of the aberrancy seen on initial EKG although still unable to rule out VT
- Patient remains on heparin drip
- EP to see the patient to evaluate him for an ICD
- Continue with ASA + high intensity statin (patient's LDL is 187 with HDL 53)
- Replete electrolytes with K>4, Mg>2
- Monitor HR with goal >50; amiodarone drip was ordered overnight but this was unable to be started given his bradycardia; I will discontinue this for now
- Continue trending troponin until it peaks although troponin is now likely increasing given his recent heart catheterization
- I will consult gastroenterology given his history of alcoholic cirrhosis, although his INR is normal and albumin level is >3.5
- He says he has not drank any alcohol in over 2 years and denies any appearance of jaundice skin or yellow eyes
- Ammonia level 20 on 06/24/2024
- Trend T bili
- Trend Na level
- Obtain outpatient medical records including imaging and labs; he says he had seen a liver doctor in the past and we should obtain these records as well, if possible
- He believes that he had a paracentesis 6 months ago that he thinks was at [facility]
- He currently denies abdominal pain and I do not appreciate any significant fluid wave on exam
- Given his bradycardia, we are holding his outpatient nadolol; also holding his Lasix + spironolactone given he was only removed from Levophed this morning
- Maintain MAP >65
- Continue lactulose titrating to 3�4 soft/formed BMs per day
- Maintain SpO2 >90-94% using supplemental O2 if needed
- Continue aspiration precautions
- The patient says that he turned his head yesterday and then became very dizzy; check carotid ultrasound
- Monitor off antibiotics while trending WBC
- He appears nontoxic-appearing and is afebrile
- Follow-up blood and urine cultures collected earlier today
- He has no UTI symptoms
- Maintain euglycemia with goal BG 140-180
- No need for MSAS or thiamine as he has not drank in >2 years
- Trend H/H and transfuse if needed to keep Hb>7g/dL; keep plt>20k, unless there is concern for bleeding then keep plt>50k
- prn nebulized bronchodilators - not currently bronchospastic
- Incentive spirometer encouraged 10x per hour for at least 4 hrs a day
- DVT ppx: heparin gtt
Patient is stable for downgrade out of ICU to IMU. No additional recommendations at this time. [employer]/Pulmonary service will now sign off. Thank you for allowing us to be involved in the care of this patient. Please reconsult if there are
any additional questions/concerns, or if patient's respiratory status deteriorates.
Total time spent today was 81 minutes for this encounter. Time includes reviewing laboratory test/imaging results, reviewing pertinent medical records, obtaining and reviewing medical history, performing an appropriate exam, ordering medications,
tests and procedures. Time also includes documentation of this encounter, coordinating patient care and communicating with other healthcare professionals. Total time does not include separately billed tests performed on this date of service.
--- NOTE | 2024-06-25 08:43 | PTCARENOTE ---
Pt received from director volunteer services RN. Upon initially meeting the patient early this morning he was very forgetful and stubborn, not remembering new information as I'm speaking. I let him sleep an hour longer and his mentation has markedly improved. Ox3,
still somewhat forgetful but more cooperative. Bed alarm in place. Sinus parrish with 1� AVB, HR 55, not currently complaining of any chest pain. Trace LE edema. Breath sounds clear throughout, 99% on RA. Round ABD, pt getting lactulose around the
clock. Pt using urinal with minimal difficulty. R radial & brachial cath sites intact. Pt has scattered bruising on both arms with a skin tear on the R. IV sites intact. Heparin gtt continues at 1200 units. Pt currently off levo with SBP in the
110's. Call triana within reach.
--- NOTE | 2024-06-25 11:39 | W.PN.CARDCBS ---
Today's Communication / Plan
-
Monitor hemodynamics closely
Monitor on telemetry for recurrent bradycardia or tachyarrhythmia
Keep K greater than 4, mag greater than 2
Continue heparin drip another 24-hour
Okay to downgrade to IMU
GI consult
Resume diuretics as able
Impression / Plan
-
Impression:
Unstable wide-complex tachycardia at 170 bpm, VT versus SVT with aberrancy status post Emergent cardioversion with 100 J 06/24/2024 in the ED
Post cardioversion sinus arrest Requiring atropine
Sinus bradycardia
Chest pain/abnormal EKG/elevated troponin consistent with non-ST elevation myocardial infarct
Possible history of prior atrial fibrillation
Hyponatremia
Hyperkalemia on outpatient Aldactone 100 mg daily
Alcoholic cirrhosis with history of hepatic encephalopathy
Prior history of therapeutic paracentesis, last 6 months ago
Hepatitis C [Per GI consult found in [facility]]
Anasarca/venous insufficiency/chronic lower extremity edema
History of hypertension
Prior alcoholic
Resident at [facility]
-Chest x-ray post cardioversion: No acute cardiopulmonary process
-EKG June 24, 1699 post cardioversion, sinus bradycardia, heart rate 51 with PACs, LVH, T wave abnormality in the inferior lateral leads concerning for ischemia
-Bedside echocardiogram in the ED: Normal left ventricular size with mild left ventricular hypertrophy. Mildly reduced left ventricular systolic function estimated 40-45% Mid inferior lateral and inferior todd are hypokinetic. Grade 1 diastolic
dysfunction. Dilated, mildly hypokinetic right ventricle. Biatrial dilatation. Trileaflet sclerotic aortic valve without significant stenosis. Trace aortic regurgitation. Mildly dilated aortic root, 4 cm at the sinus of Valsalva, 4 cm at the
proximal ascending aorta. Mild mitral and tricuspid regurgitation. Estimated pulmonary artery systolic pressure 20 mmHg. No significant pericardial effusion.
-RHC 06/25/24:
HEMODYNAMICS : (mmHg)
RA (m) : 22
RV (s/d,m) : 46/16, 21
PA (s/d, m) : 47/27, 34
PCWP (m) : 25
PA saturation: 68.7% on room air
AO saturation: 90.8% on room air
RA saturation: 67.4% on room air
Cardiac Output : 5.8 L/min by Kati calculation
Cardiac Index : 2.67 L/min/m-2 by Kati calculation
Systemic vascular resistance: 874 dsc^(-5) on 6 mcg of Levophed
Pulmonary vascular resistance: 1.80 luna unit
AO (s/d) : 105/74, mean of 86
LVEDP : 25
No significant gradient across the aortic valve to suggest aortic stenosis.
[facility] 06/25/24: Dominance: Right. Left Main Trunk (LMT): Large caliber vessel that gives rise to the LAD and LCx branches and is free of angiographic disease.
Left Anterior Descending Artery (LAD): Large caliber vessel that gives off 2 major small caliber diagonal branches as it courses along the anterior inter-ventricular groove before wrapping around the cardiac apex. Mid LAD has a 40 to 50% stenosis
just distal to D2 takeoff with ESTEFANI-3 flow into the distal vessel. D2 is a small caliber vessel with 2 serial 50 to 60% stenoses with ESTEFANI-3 flow into the distal portion. Left Circumflex Artery (LCx): Large caliber vessel that gives off one major
obtuse marginal (OM) branch as it courses along the atrio-ventricular (AV) groove. The LCx and its branches are free of angiographic obstructive disease. There is mild diffuse atherosclerotic plaque. Right Coronary Artery (RCA): Large caliber
dominant vessel that gives rise to the posterior descending artery (RPDA) and postero-lateral ventricular (RPLV) branches distally. Distal RCA has a smooth 60 to 70% stenosis but with ESTEFANI-3 flow into the distal vessels. No intervention performed
Plan:
Vasodilatory shock with Elevated right and left filling pressures, normal cardiac index and low SVR on pressors, not cardiogenic. May be related to underlying liver disease versus infection
-Patient is now off of Levophed with borderline blood pressures
-Infection workup pending but Less likely and not on antibiotics. Initial lactate 2.1 and improved
Unstable wide-complex tachycardia requiring urgent cardioversion, VT versus SVT with aberrancy
-Details are vague what patient describes an event possibly in [place] or [place] where he required urgent cardioversion and and was possibly offered and declined an ICD.
-There are also notes in a GI consult in [facility] that he has a history of atrial fibrillation, unconfirmed
-Post cardioversion with prolonged sinus arrest Requiring atropine and sinus bradycardia.
-Patient does have PVCs but no further NSVT or sustained VT
-Left heart catheterization with moderate diffuse coronary disease without culprit lesion. LV ejection fraction visually estimated 40-45%.
-Will hold off further amiodarone at this time given bradycardia
- Will review case/EKGs with EP for further input regarding need for ICD. Briefly discussed with patient and he is unsure he would want to proceed
Chest pain with NSTEMI, peak troponin 1.64
-Patient underwent urgent left heart catheterization last night due to ongoing chest pain
-Patient has diffuse moderate coronary disease involving circumflex and RCA with ESTEFANI III flow and no culprit lesion. No intervention performed
-Currently chest pain-free
-Will continue IV heparin another 24 hours and stop tomorrow morning 06/26/2024 For ACS
-Continue aspirin 81 mg daily
-Total cholesterol 260, LDL 187, HDL 53, triglycerides 102. Atorvastatin 80 mg initiated [GI consulted and would Appreciate their opinion regarding statin with history of cirrhosis; LFTs on admission normal]
Biventricular cardiomyopathy with mildly reduced LV systolic function and dilated hypokinetic right ventricle.
-Patient is just off Levophed with borderline blood pressure
-Received IV Lasix overnight
-Slowly reinitiate goal-directed medical therapy
Alcoholic cirrhosis/hepatitis C with history of hepatic encephalopathy and ascites requiring paracentesis
- Coagulation profile within normal limits
- Hemoglobin, platelet count normal. LFTs within normal limits. Ammonia level normal.
-Patient had presented on high-dose Lasix 80 mg daily as well as Aldactone 100 mg daily which managed his chronic edema and ascites. Currently held
-Patient had been on nadolol 20 mg daily preadmission which is currently held secondary to bradycardia
-Lactulose resumed
- Consider GI consult
Patient seems to have poor insight. Offered multiple times over the course of the last 24 hours to contact family and involve them in this hospitalization and he has refused
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
Subjective
Date of Service: June 25, 2024
Seen and examined this morning. Levophed currently off. Patient denies chest pain or pressure.Events overnight reviewed with
Objective
Labs:
06/25/24 03:35
06/25/24 03:35
Labs
Hgb 15.2 g/dL (13.0-18.0) 06/25/24 03:35
Hct 42.8 % (39.0-52.0) 06/25/24 03:35
Plt Count 176 10^3/uL (130-400) D 06/25/24 03:35
PT 14.3 Sec (11.4-14.6) 06/24/24 16:37
INR 1.08 06/24/24 16:37
APTT Cancelled 06/24/24 21:16
Sodium 131 mmol/L (135-145) L 06/25/24 03:35
Potassium 4.7 mmol/L (3.5-5.1) 06/25/24 03:35
BUN 45 mg/dl (9-20) H 06/25/24 03:35
Creatinine 0.9 mg/dL (0.7-1.3) 06/25/24 03:35
Glucose 132 mg/dl (70-99) H 06/25/24 03:35
Troponins
06/24/24 06/24/24 06/25/24
16:37 20:04 00:32
Troponin I 1.190 H* 1.530 H* D 1.640 H*
06/25/24
03:35
Troponin I 1.590 H*
Vital Signs and I&O:
Vital Signs
Temp Pulse Resp BP Pulse Ox
98.5 F 58 14 102/70 99
06/25/24 11:00 06/25/24 11:00 06/25/24 11:00 06/25/24 10:30 06/25/24 11:01
Vital Signs
Temp Pulse Resp BP Pulse Ox
98.5 F 58 14 102/70 99
06/25/24 11:00 06/25/24 11:00 06/25/24 11:00 06/25/24 10:30 06/25/24 11:01
Intake & Output
06/23/24 06/24/24 06/25/24 06/26/24
06:59 06:59 06:59 06:59
Intake Total 258.8 / 278.3 63.0 / 63.0
Output Total 400 / 400
Balance -141.2 / -121.7 63.0 / 63.0
Physical Exam
Physical Exam
General: No acute distress, AAOX3
Heart: Regular, positive S1/S2, No murmur
Lungs: CTA b/l, negative wheezes/rales/rhonchi
Abd: Soft, positive bowel sounds. No significant ascites appreciated
Ext: + edema With bilateral varicosities. Radial cath site intact
Neuro: nonfocal
[2024-06-25 11:58] LABS: APTT 51.5 Sec (23.4-35.0)
--- NOTE | 2024-06-25 13:32 | W.PN.HOSP.TC ---
Today's Communication/Plan
-
continue outlined plan below
Assessment / Plan
Assessment / Plan
Assessment:
NSTEMI with likely Cardiogenic shock
- Pressors weaned off this AM
- s/p Cath 06/25: nonobstructive CAD
- continue ASA/Statin
- continue IV Heparin - requires intensive monitoring of PTTs
- Cards following
Parox Afib
- s/p Cardioversion followed by pause and bradycardia
- s/p Amio drip
- Cards following
Syncope with turning head
- Carotid US ordered
GERD - PPI
Reactive leukocytosis
- monitor CBC
- cultures pending
Lactic acidosis (metabolic acidosis) in setting of shock
- resolved
Hyponatremia and Hyperkalemia
- improving with IVF
Hx of ETOH cirrhosis
- GI consulted for optimization
Insomnia
- Lorazepam, trazodone continued at bedtime
BPH
- Tamsulosin continued
DVT prophylaxis: IV Heparin
Code: Full
Anticipated Discharge: > 48 hours
Subjective/Interval History
-
Date of Service: June 25, 2024
resting comfortably
off pressors since early AM
denies cp or sob
Objective Data
-
Labs:
Laboratory Results
06/25/24 06/25/24 06/25/24
03:35 10:16 11:34
WBC 12.1 H
Hgb 15.2
Hct 42.8
Plt Count 176 D
APTT 51.5 H
Sodium 131 L
Potassium 4.7
Chloride 101
Carbon Dioxide 23
BUN 45 H
Creatinine 0.9
Glucose 132 H
Calcium 9.0
Total Bilirubin Cancelled
AST Cancelled
ALT Cancelled
Alkaline Phosphatase Cancelled
06/25/24
18:30
WBC
Hgb
Hct
Plt Count
APTT Pending
Sodium
Potassium
Chloride
Carbon Dioxide
BUN
Creatinine
Glucose
Calcium
Total Bilirubin
AST
ALT
Alkaline Phosphatase
Vital Signs:
Vital Signs
Temp Pulse Resp BP Pulse Ox
98.5 F 58 14 102/70 99
06/25/24 11:00 06/25/24 11:00 06/25/24 11:00 06/25/24 10:30 06/25/24 11:01
I&O
06/24/24 06/25/24 06/26/24
06:59 06:59 06:59
Intake Total 258.8 / 278.3 75.0 / 75.0
Output Total 400 / 400 450 / 450
Balance -141.2 / -121.7 -375.0 / -375.0
Physical Exam
-
General: No Apparent Distress
HEENT: Normocephalic and Atraumatic
Respiratory: Negative Wheezes
Cardiac: Regular Rhythm and S1/S2
GI: Soft and Nontender
Neuro: AO x 3
Psych: Calm
Data Reviewed
-
Total Time Spent with Patient (in minutes): 51
Labs: Labs Reviewed by me
[2024-06-25] MEDS: LIPITOR 80 MG PO (18:23)
[2024-06-25 18:58] LABS: APTT 82.7 Sec (23.4-35.0)
--- NOTE | 2024-06-25 20:00 | PTCARENOTE ---
Rec'd pt resting in bed, amb to bathroom to void & back to bed, abelardo well, cooperative, follows commands, forgetful, SR w/ 1' av block, pvc's, bp stable, weka rad & distal pulses, denies cp, R rad & brach cath sites intact, RA, lungs clear, sat 92,
c/o mucous- mucinex ordered and given, + bowel sounds, no bm, abd soft, no n/v, abelardo diet, voiding in bathroom , hep gtt at 1400 units per protocal
--- NOTE | 2024-06-25 20:25 | W.PN.UPDATE ---
Update Note
Progress Note Update
Patient here for primary cardiac issue, can be transferred to IVU, discussed with Dr. Wu, web press operator assistant.
[2024-06-25] MEDS: HEPARIN 25000 UNITS/250 ML IV (20:33)
[2024-06-25] MEDS: MUCINEX 600 MG PO (20:34)
[2024-06-25] MEDS: DESYREL 50 MG PO (21:11)
[2024-06-25] MEDS: ATIVAN 0.5 MG PO (21:11)
[2024-06-26] VITALS (18 sets, daily range): BP systolic 85–141; BP diastolic 58–90; PULSE 58–61; BMI 27.5
--- NOTE | 2024-06-26 | PTCARENOTE ---
sys reviewed, changes noted
[2024-06-26 00:47] LABS: Hematocrit 36.8 % (39.0-52.0); Mean Corp Hgb Conc. 35.3 g/dL (33.0-37.0); Mean Corpuscular Hgb 31.9 pg (27.0-31.0); Mean Corpuscular Volume 90.4 fL (80.0-94.0); Mean Platelet Volume 9.9 fL (7.4-10.4); Platelet Count 133 10^3/uL (130-400); Red Blood Cell Count 4.07 10^6/uL (4.70-6.10); Red Cell Dist. Width 12.6 % (11.5-14.5); White Blood Cell Count 7.2 10^3/uL (4.8-10.8)
[2024-06-26 00:52] LABS: APTT 94.2 Sec (23.4-35.0)
[2024-06-26 00:53] LABS: ALT (SGPT) 24 U/L (0-50); AST (SGOT) 39 U/L (17-59); Albumin 3.2 g/dl (3.5-5.0); Alkaline Phosphatase 71 U/L (38-126); Blood Urea Nitrogen 34 mg/dl (9-20); Calcium 8.5 mg/dl (8.4-10.2); Carbon Dioxide 25 mmol/L (22-30); Chloride 105 mmol/L (98-107); Direct Bilirubin 0.4 mg/dl (0.0-0.4); Estimated Creatinine Clearance 114 ml/min; Glucose 99 mg/dl (70-99); Magnesium 2.2 mg/dl (1.6-2.3); Phosphorus 2.5 mg/dl (2.5-4.5); Potassium 3.9 mmol/L (3.5-5.1); Sodium 132 mmol/L (135-145); Total Protein 5.6 g/dl (6.3-8.2); eGFR > 60.00
[2024-06-26 00:55] LABS: NT-proBNP 5390 pg/ml
--- NOTE | 2024-06-26 02:00 | PTCARENOTE ---
Constantine Burton np aware of bp, pt asymptomatic
--- NOTE | 2024-06-26 04:00 | PTCARENOTE ---
sys reviewed, changes noted
--- NOTE | 2024-06-26 05:43 | PTCARENOTE ---
CHG bath done
[2024-06-26 06:00] LABS: APTT 68.4 Sec (23.4-35.0)
--- NOTE | 2024-06-26 08:00 | PTCARENOTE ---
Patient received lying in bed, awake, alert and oriented. 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 He currently denies CP, SOB, Dizziness, N/V. SR on CM with 1st degree AVB and BBB. S1S2 with positive murmur. Weak pedal pulses, BLE edema 2+.
BBS clear. Heparin gtt infusing at 1500 units/hr via right hand. Right radial artery gauze dressing CDI. Right brachial dressing with gauze and tegaderm CDI. Sites soft without overt hematoma. BUEs with scattered bruising. OOB to chair with SBA,
gait steady. Good appetite for breakfast. Chair locked and call triana in reach.
[2024-06-26] MEDS: FLOMAX 0.4 MG PO (08:04)
[2024-06-26] MEDS: DUPHALAC/CHRONULAC 30 GRAMS PO (08:04)
[2024-06-26] MEDS: FOLVITE 1 MG PO (08:05)
[2024-06-26] MEDS: PROTONIX 40 MG PO (08:05)
[2024-06-26] MEDS: MUCINEX 600 MG PO ×2 (08:05→19:55)
[2024-06-26] MEDS: LOW STRENGTH ASPIRIN 81 MG PO (08:05)
--- NOTE | 2024-06-26 09:59 | W.PN.CARDCBS ---
Addendum entered and electronically signed by Wendi Milner DO 06/26/24 17:55:
Notified by team that patient declined secondary prevention ICD. Indications and benefits were reviewed, we encouraged him to reconsider and can readdress tomorrow. If patient ultimately decides against ICD, notification to the state will need to
be sent to revoke driving privileges and his facility also made aware of driving ban.
Original Note:
Today's Communication / Plan
-
Stop IV heparin
Start Plavix with plan for dual antiplatelet therapy for ideally 6 months
Case discussed with EP and they are recommending secondary prevention ICD. Will discuss this further with patient and await his decision
Will try to restart patient's Lasix and Aldactone
Stable for transfer out of ICU to IVU. Continue telemetry monitoring
Impression / Plan
-
Impression:
Unstable wide-complex tachycardia at 170 bpm, VT versus SVT with aberrancy status post Emergent cardioversion with 100 J 06/24/2024 in the ED
Post cardioversion sinus arrest Requiring atropine
Sinus bradycardia
Chest pain/abnormal EKG/elevated troponin consistent with non-ST elevation myocardial infarct
Possible history of prior atrial fibrillation
Hyponatremia
Hyperkalemia on outpatient Aldactone 100 mg daily
Alcoholic cirrhosis with history of hepatic encephalopathy
Prior history of therapeutic paracentesis, last 6 months ago
Hepatitis C [Per GI consult found in [facility]]
Anasarca/venous insufficiency/chronic lower extremity edema
History of hypertension
Prior alcoholic
Resident at [facility]
-Chest x-ray post cardioversion: No acute cardiopulmonary process
-EKG June 24, 1699 post cardioversion, sinus bradycardia, heart rate 51 with PACs, LVH, T wave abnormality in the inferior lateral leads concerning for ischemia
-RHC 06/25/24:
HEMODYNAMICS : (mmHg)
RA (m) : 22
RV (s/d,m) : 46/16, 21
PA (s/d, m) : 47/27, 34
PCWP (m) : 25
PA saturation: 68.7% on room air
AO saturation: 90.8% on room air
RA saturation: 67.4% on room air
Cardiac Output : 5.8 L/min by Kati calculation
Cardiac Index : 2.67 L/min/m-2 by Kati calculation
Systemic vascular resistance: 874 dsc^(-5) on 6 mcg of Levophed
Pulmonary vascular resistance: 1.80 luna unit
AO (s/d) : 105/74, mean of 86
LVEDP : 25
No significant gradient across the aortic valve to suggest aortic stenosis.
-[facility] 06/25/24: Dominance: Right. Left Main Trunk (LMT): Large caliber vessel that gives rise to the LAD and LCx branches and is free of angiographic disease.
Left Anterior Descending Artery (LAD): Large caliber vessel that gives off 2 major small caliber diagonal branches as it courses along the anterior inter-ventricular groove before wrapping around the cardiac apex. Mid LAD has a 40 to 50% stenosis
just distal to D2 takeoff with ESTEFANI-3 flow into the distal vessel. D2 is a small caliber vessel with 2 serial 50 to 60% stenoses with ESTEFANI-3 flow into the distal portion. Left Circumflex Artery (LCx): Large caliber vessel that gives off one major
obtuse marginal (OM) branch as it courses along the atrio-ventricular (AV) groove. The LCx and its branches are free of angiographic obstructive disease. There is mild diffuse atherosclerotic plaque. Right Coronary Artery (RCA): Large caliber
dominant vessel that gives rise to the posterior descending artery (RPDA) and postero-lateral ventricular (RPLV) branches distally. Distal RCA has a smooth 60 to 70% stenosis but with ESTEFANI-3 flow into the distal vessels. No intervention performed
-Echocardiogram done in the ED following cardioversion for unstable wide-complex tachycardia 06/24/2024: Normal left ventricular size. Mildly reduced left ventricular systolic function estimated by Patel's biplane method 48%. Mild basal inferior
and basal�mid inferolateral hypokinesis. Enlarged right ventricle with mildly reduced RV systolic function. Biatrial dilatation. Trace mitral regurgitation. Mild tricuspid regurgitation. Minimal aortic sclerosis. Estimated pulmonary artery
pressure 20 mmHg. No pericardial effusion.
Plan:
Vasodilatory shock with Elevated right and left filling pressures, normal cardiac index and low SVR on pressors.
-Patient is now off of Levophed with borderline blood pressures
-Initial lactate 2.1 and improved
-Blood and urine cultures no growth to date
-Does not appear to be infected; not on antibiotics.
Unstable wide-complex tachycardia requiring urgent cardioversion, Favoring VT
-Case discussed with EP who favors VT and recommends for secondary prevention ICD implant. Patient was seen prior to EP review of case. Possible ICD was briefly discussed with patient yesterday and will return to discuss EP recommendations and ICD
implant
-Beta-frank held for now secondary to bradycardia. Would resume post ICD implant if patient agrees
-Will ask GI to weigh in on future use of amiodarone
-There are also notes in a GI consult in [facility] that he has a history of atrial fibrillation, unconfirmed
-Post cardioversion with prolonged sinus arrest Requiring atropine and sinus bradycardia.
-Patient does have PVCs but no further NSVT or sustained VT
-Left heart catheterization with moderate diffuse coronary disease without culprit lesion. LV ejection fraction Estimated by Patel's biplane method 48%
Chest pain with NSTEMI, peak troponin 1.64
-Patient underwent urgent left heart catheterization last night due to ongoing chest pain
-Patient has diffuse moderate coronary disease involving circumflex and RCA with ESTEFANI III flow and no culprit lesion. No intervention performed
-Currently chest pain-free
-Stop IV heparin.
-Continue aspirin 81 mg daily. Will add Plavix for ideally 6 months postevent
-Total cholesterol 260, LDL 187, HDL 53, triglycerides 102. Atorvastatin 80 mg initiated [GI consulted and would Appreciate their opinion regarding statin with history of cirrhosis; LFTs on admission normal]
Mildly reduced LV systolic function and dilated hypokinetic right ventricle.
-Prehospitalization he had been on Lasix 80 mg daily and Aldactone 100 mg daily for fluid retention/ascites related to cirrhosis.
-Will restart Lasix at lower dose 40 mg and Aldactone at lower dose 25 mg daily
-Slowly reinitiate goal-directed medical therapy
Alcoholic cirrhosis/hepatitis C with history of hepatic encephalopathy and ascites requiring paracentesis
- Coagulation profile within normal limits
- Hemoglobin, platelet count normal. LFTs within normal limits. Ammonia level normal.
-Patient had presented on high-dose Lasix 80 mg daily as well as Aldactone 100 mg daily which managed his chronic edema and ascites. Currently held
-Patient had been on nadolol 20 mg daily preadmission which is currently held secondary to bradycardia
-Lactulose resumed
-GI consult Pending
Offered to call patient's family to discuss care and he refused
Stable for transfer to IVU
Progress Note - [employer] Blank Handler
Subjective
Date of Service: June 26, 2024
Patient was seen and examined ambulating around his room. Overall feeling well and denies chest pain or pressure. No shortness of breath. No dizziness or lightheadedness.
Objective
Labs:
06/26/24 00:25
06/26/24 00:25
Labs
Hgb 13.0 g/dL (13.0-18.0) 06/26/24 00:25
Hct 36.8 % (39.0-52.0) L 06/26/24 00:25
Plt Count 133 10^3/uL (130-400) D 06/26/24 00:25
PT 14.3 Sec (11.4-14.6) 06/24/24 16:37
INR 1.08 06/24/24 16:37
APTT 68.4 Sec (23.4-35.0) H 06/26/24 05:23
Sodium 132 mmol/L (135-145) L 06/26/24 00:25
Potassium 3.9 mmol/L (3.5-5.1) 06/26/24 00:25
BUN 34 mg/dl (9-20) H 06/26/24 00:25
Creatinine 0.7 mg/dL (0.7-1.3) 06/26/24 00:25
Glucose 99 mg/dl (70-99) 06/26/24 00:25
Troponins
06/24/24 06/24/24 06/25/24
16:37 20:04 00:32
Troponin I 1.190 H* 1.530 H* D 1.640 H*
06/25/24
03:35
Troponin I 1.590 H*
Vital Signs and I&O:
Vital Signs
Temp Pulse Resp BP Pulse Ox
98.2 F 58 21 100/68 100
06/26/24 07:38 06/26/24 09:00 06/26/24 09:00 06/26/24 09:00 06/26/24 08:00
Vital Signs
Temp Pulse Resp BP Pulse Ox
98.2 F 58 21 100/68 100
06/26/24 07:38 06/26/24 09:00 06/26/24 09:00 06/26/24 09:00 06/26/24 08:00
Intake & Output
06/24/24 06/25/24 06/26/24 06/27/24
06:59 06:59 06:59 06:59
Intake Total 258.8 / 278.3 485.0 / 485.0 450 / 450
Output Total 400 / 400 1200 / 1200 375 / 375
Balance -141.2 / -121.7 -715.0 / -715.0 75 / 75
Physical Exam
Physical Exam
General: No acute distress, AAOX3
Heart: Regular, positive S1/S2, No murmur
Lungs: CTA b/l, negative wheezes/rales/rhonchi
Abd: Soft, positive bowel sounds. No significant ascites appreciated
Ext: + edema With bilateral varicosities. Radial cath site intact
Neuro: nonfocal
--- NOTE | 2024-06-26 10:49 | CON.GI ---
Addendum entered and electronically signed by Boom Parada MD 06/26/24 18:59:
I saw and examined the patient.
The PA's note was reviewed and I agree with the note.
Comment:
68 year old male with h/o PAF, decompensated cirrhosis followed by outside GI (ascites, h/o HE), hep C (? prior exposure with clearance no prior treatment), distant hx IVDA, prior ETOH/tobacco use who p/w chest pain and found to have NSTEMI. GI
consulted for his cirrhosis. No signs of decompensation currently. Agree with US but most can be done as OP.
Original Note:
Consultation
-
Date/Time Consultation Requested: 06/25/24 1300
Date/Time Consultation Performed: 06/26/24 1049
Requesting Provider: Shivam Chong MD
Performing Provider: ROBBIE Ricardo, Boom Parada MD
Reason for Consultation: cirrhosis
Medical History
Chief Complaint / HPI
History of Present Illness:
Pt is a 68yo presents with hx PAF, cirrhosis followed by [facility], prior paracentesis, hepatic encephalopathy, hep C(? prior exposure with clearance no prior treatment), distant hx IVDA, prior ETOH/tobacco use, varicose veins BPH, HTN, hyperlipidemia,
anxiety, epidural hematoma, RA, anasarca, and LE edema presents with chest pain and shortness of breath weakness. He was initially noted with bradycardia and hypotension but noted with wide complex tachycardia with rate 170's in ER with was given
medical therapy and also required cardioversion and also noted elevated troponin with concern for NSTEMI with concern for cardiogenic shock. Labs on admission notable for Na 129, K 5.2. Asked to see for hx cirrhosis and optimization during
admission.
At this time patient states recent office visit with [facility]. He states he was due for ultrasound but noted with delay from [facility]. He admits to hx ascites and LE edema and no prior history of GI bleeding or encephalopathy. He admits to
some nausea on admission with cardiac issues now improved. He also admits to occasional loose stool but denies dsyphagia, GERD, vomiting, abdominal pain, constipation or rectal bleeding. Pt denies hx EGD or colonoscopy in past. Denies hx prior GI
bleed.
Past Medical History
Past Medical History: Arrhythmias (PAF, bradicardia), GERD, HTN, Psychiatric (depression) and Other (cirrhosis, hepatic encephalopathy, ETOH abuse, BPH, gait abnormality , insomnia, RA, epidural hematoma )
Past Surgical History: Tonsilectomy
Social History
Tobacco: Former Smoker
Alcohol: Former
Drug: Former User
Living: Prison
Employment: Retired
Family History
Family History: Other (no family hx cirrhosis or liver issues )
Allergies / Home Medications
Allergy/AdvReac Type Severity Reaction Status Date / Time
No Known Allergies Allergy Unverified 08/24/23 10:36
�Medication �Instructions �Recorded
acetaminophen 325 mg tablet 650 mg PO Q6H PRN mild pain, 06/24/24
temp>100.4
acetaminophen 500 mg tablet 1,000 mg PO Q6H PRN mod pain 06/24/24
acetaminophen 650 mg rectal 650 mg OR Q4H PRN temp>100 06/24/24
suppository
bisacodyl 10 mg rectal suppository 10 mg OR DAILYPRN PRN if no 06/24/24
results from [facility]
folic acid 1 mg tablet 1 mg PO DAILY Supplement 06/24/24
furosemide 80 mg tablet 80 mg PO DAILY Fluid 06/24/24
Retention/Swelling
lactulose 10 gram/15 mL oral 45 ml PO DAILY Constipation 06/24/24
solution
lorazepam 0.5 mg tablet 0.5 mg PO HS Mental Health/Anxiety 06/24/24
magnesium hydroxide 400 mg/5 mL 30 ml PO HSPRN PRN if no bm in 3 06/24/24
oral suspension (Milk of Magnesia) days
nadolol 20 mg tablet 20 mg PO DAILY Blood Pressure 06/24/24
pantoprazole 40 mg tablet,delayed 40 mg PO DAILY GERD 06/24/24
release
sodium phosphates 19 gram-7 118 ml OR DAILYPRN PRN if no 06/24/24
gram/118 mL enema (Fleet Enema) results after bisacodyl
spironolactone 100 mg tablet 100 mg PO DAILY Fluid 06/24/24
Retention/Swelling
tamsulosin 0.4 mg capsule 0.4 mg PO DAILY Urinary Issue 06/24/24
trazodone 50 mg tablet 50 mg PO DAILY Mental 06/24/24
Health/Anxiety
Review of Systems
-
History Source: Patient
Constitutional: Reports Weight Gain (with LE swelling but some loss since admission)
EENT: Reports No Symptoms
Respiratory: Reports Trouble Breathing (on admission )
Cardiac: Reports Chest Pain (on admission)
Abdomen/GI: Reports Diarrhea
: Reports No Symptoms
Musculoskeletal: Reports Joint Pain
Skin: Reports No Symptoms
Neurological: Reports Weakness (with recent rehab stay )
Endocrine: Reports No Symptoms
Hematologic/Lymphatic: Reports No Symptoms
Vital Signs
Temp Pulse Resp BP Pulse Ox
98.2 F 58 21 100/68 100
06/26/24 07:38 06/26/24 09:00 06/26/24 09:00 06/26/24 09:00 06/26/24 08:00
Physical Exam
Exam
General: Well Developed, Well Nourished and No Apparent Distress
HEENT: Normocephalic and Anicteric
Respiratory: Clear
Cardiac: Regular Rhythm and Peripheral Edema
GI: Soft, Non Tender and Distended (minimal )
Musculoskeletal: No Clubbing and No Cyanosis
Skin: Warm and Dry
Neuro: Awake, Alert and AO x 3
Psych: Calm
Results
WBC 7.2 10^3/uL (4.8-10.8) 06/26/24 00:25
Hgb 13.0 g/dL (13.0-18.0) 06/26/24 00:25
Hct 36.8 % (39.0-52.0) L 06/26/24 00:25
MCV 90.4 fL (80.0-94.0) 06/26/24 00:25
Plt Count 133 10^3/uL (130-400) D 06/26/24 00:25
Absolute Neuts (auto) 8.3 10^3/uL (1.4-6.5) H 06/24/24 16:37
PT 14.3 Sec (11.4-14.6) 06/24/24 16:37
INR 1.08 06/24/24 16:37
APTT Cancelled 06/26/24 12:30
Sodium 132 mmol/L (135-145) L 06/26/24 00:25
Potassium 3.9 mmol/L (3.5-5.1) 06/26/24 00:25
Chloride 105 mmol/L (98-107) 06/26/24 00:25
Carbon Dioxide 25 mmol/L (22-30) 06/26/24 00:25
BUN 34 mg/dl (9-20) H 06/26/24 00:25
Creatinine 0.7 mg/dL (0.7-1.3) 06/26/24 00:25
Calcium 8.5 mg/dl (8.4-10.2) 06/26/24 00:25
Total Bilirubin 2.0 mg/dl (0.2-1.3) H 06/26/24 00:25
AST 39 U/L (17-59) 06/26/24 00:25
ALT 24 U/L (0-50) 06/26/24 00:25
Alkaline Phosphatase 71 U/L (38-126) 06/26/24 00:25
Diagnostic Image Results:
Prior GI Procedures:
EGD: none
Colonoscopy: none
Assessment / Plan
-
Pt is a 68yo presents with hx PAF, cirrhosis followed by [facility], prior paracentesis, hepatic encephalopathy, hep C(? prior exposure with clearance no prior treatment), distant hx IVDA, prior ETOH/tobacco use, varicose veins BPH, HTN, hyperlipidemia,
anxiety, epidural hematoma RA, anasarca, and LE edema presents with chest pain and shortness of breath weakness. He was initially noted with bradycardia and hypotension but noted with wide complex tachycardia with rate 170's in ER with was given
medical therapy and also required cardioversion and also noted elevated troponin with concern for NSTEMI with concern for cardiogenic shock. Labs on admission notable for Na 129, K 5.2. Asked to see for hx cirrhosis and optimization during
admission.
-NSTEMI with likely cardiogenic shock on admission
-PAF s/p cardioversion on admission
-hx cirrhosis
-LE edema
-hx ascites with prior paracentesis
-hepatic encephalopathy
-hyperkalemia/hyponatremia on admission
other med problems:
-? hep C exposure and clearance
-hx IVDA/prior ETOH /prior tobacco abuse
-varicose veins
-BPH
-hyperlipidemia
-epidural hematoma
PLAN:
Pt with hx cirrhosis with follow with Dr. Naqvi at [facility] last office visit 02/2024
from liver standpoint appears stable with mild bili elevation but normal platelets, INR, renal function and albumin on admission with admission MELD 3.0- 18
no current signs of HE - awake and oriented without asterixis
will check check US with doppler for HCC and eval for ascites and AFP
will need eventual GI follow up for EGD as no prior screening
continue diuretics per cardiology -- In February pt was on Lasix 40mg and Aldactone 100mg, now on Lasix 40mg and Aldactone 25mg -- monitor for recurrent ascites/LE edema
cont lactulose 30mg daily -- monitor mental status as was on Lactulose 45mg daily prior to admission and also prior Xifaxan several months ago
pt to state Plavix per cardiology - current normal hbg but close watch for bleeding
cont PPI daily
cont ETOH abstinence/avoid hepatotoxic medications
OP follow up with Dr. Naqvi after discharge
-
-
Thank you for consultation and allowing me to participate in the patient's care. Please call the diagnostic medical sonographer GI physician during the after hours with any questions or concerns.
[2024-06-26] MEDS: PLAVIX 75 MG PO (11:45)
[2024-06-26] MEDS: LASIX 40 MG PO (11:45)
--- NOTE | 2024-06-26 12:07 | CM ---
Initial assessment completed with patient who has been living at [facility] for the past 1 year and 3 months. Prior to [facility] patient had an apartment. Patient uses a SPC to ambulate and on rare occasions a RW. He is scheduled for a L
knee replacement on August 03, 2024. He can drive and has a car which is at his old apartment. No service, no POA. Support system consists of his 83 y/o sister and her 89 y/o , a daughter with whom he has a 'strained' relationship and
a son who does visit him at [facility]. PCP is Dr. Boss in [place] and current pharmacy is with [facility]. Discharge POC: Return to [facility]. Will send referral.
--- NOTE | 2024-06-26 13:18 | W.PN.UPDATE ---
Update Note
Progress Note Update
Sat and talked with patient in room about admission thus far. Asked patient if he wanted to have someone in the room or on the phone while we talked and he said no. We talked about the cath and echo results. We talked about his previous event 7
years ago and that he was recommended an ICD at that time which he declined. He says he feels that everything is catching up to him and that having an ICD makes him feel like he is getting older and is less healthy. We talked about ICD procedure and
the pros and cons of having an ICD. We talked about what recovery would be like and activity limitations. Wrote terms defibrillator and VT on his whiteboard in the room and encouraged patient to do some of his own research. Asked patient to think
about ICD and that we could talk again at any time. Also updated patient's RN before I left the floor.
--- NOTE | 2024-06-26 14:42 | W.PN.HOSP.TC ---
Today's Communication/Plan
-
IVU transfer
optimize lytes, consider ICD if pt agreeable.
Assessment / Plan
Assessment / Plan
Assessment:
NSTEMI with shock state, noncardiogenic per Cardiology
- s/p Cath 06/25: nonobstructive CAD
- continue ASA/Plavix x 6 months
- continue Statin
- s/p IV heparin
- Cards following
Parox Afib
Unstable wide-complex tachycardia at 170 bpm, VT versus SVT with aberrancy status post Emergent cardioversion with 100 J 06/24/2024 in the ED
- s/p Cardioversion followed by pause and sinus bradycardia requiring Atropine
- s/p Amio drip
- ICD being discussed
- Cards following
Syncope with turning head
- Carotid US unremarkable
GERD - PPI
Reactive leukocytosis
- resolved
- cultures negative
Lactic acidosis (metabolic acidosis) in setting of shock
- resolved
Hyponatremia and Hyperkalemia
- improving with IVF
Hx of ETOH cirrhosis with history of hepatic encephalopathy
- GI following for optimization; OP GI f/u with GI associates Jarocho/Miki
- continue diuretics
Insomnia
- Lorazepam, trazodone continued at bedtime
BPH
- Tamsulosin continued
DVT prophylaxis: SCDs
Code: Full
Anticipated Discharge: > 48 hours
Subjective/Interval History
-
Date of Service: June 26, 2024
resting comfortably, no complaints
Objective Data
-
Labs:
Laboratory Results
06/26/24 06/26/24
: 12:30
APTT 68.4 H Cancelled
Vital Signs:
Vital Signs
Temp Pulse Resp BP Pulse Ox
98.5 F 58 18 141/80 99
06/26/24 11:18 06/26/24 12:00 06/26/24 12:00 06/26/24 11:45 06/26/24 12:00
I&O
06/25/24 06/26/24 06/27/24
06:59 06:59 06:59
Intake Total 258.8 / 278.3 485.0 / 485.0 810 / 810
Output Total 400 / 400 1200 / 1200 375 / 375
Balance -141.2 / -121.7 -715.0 / -715.0 435 / 435
Physical Exam
-
General: No Apparent Distress
HEENT: Normocephalic and Atraumatic
Respiratory: Negative Wheezes
Cardiac: Regular Rhythm and S1/S2
GI: Soft and Nontender
Musculoskeletal: No Edema
Neuro: AO x 3
Hematologic / Lymphatic: No Lymphadenopathy
Psych: Calm
Data Reviewed
-
Total Time Spent with Patient (in minutes): 42
Labs: Labs Reviewed by me
[2024-06-26] MEDS: LIPITOR 80 MG PO (17:21)
--- NOTE | 2024-06-26 18:41 | PTCARENOTE ---
Report given verbally to oncAparna sanon RN. Questions answered.
--- NOTE | 2024-06-26 20:00 | PTCARENOTE ---
Rec'd pt sitting in bed, amb ad laith in room, denies pain, SR/ Sinus parrish w/ 1' AV block, weak distal pulses, + LE edema, RA, lungs clear, sat 94, + bowel sounds, no bm, abd soft, abelardo diet, voiding in bathroom, not wearing seq at present time since
up ad laith freq
[2024-06-26] MEDS: ATIVAN 0.5 MG PO (21:45)
[2024-06-26] MEDS: DESYREL 50 MG PO (21:45)
--- NOTE | 2024-06-26 23:45 | PTCARENOTE ---
sys reviewed, knee high seq applied, npo for ultrasound in am
[2024-06-27] VITALS (7 sets, daily range): BP systolic 90–123; BP diastolic 56–78; BMI 28.0
[2024-06-27 03:59] LABS: Hematocrit 33.5 % (39.0-52.0); Hemoglobin 11.8 g/dL (13.0-18.0); Mean Corp Hgb Conc. 35.2 g/dL (33.0-37.0); Mean Corpuscular Hgb 32.2 pg (27.0-31.0); Mean Corpuscular Volume 91.5 fL (80.0-94.0); Mean Platelet Volume 10.2 fL (7.4-10.4); Platelet Count 136 10^3/uL (130-400); Red Blood Cell Count 3.66 10^6/uL (4.70-6.10); Red Cell Dist. Width 12.5 % (11.5-14.5)
[2024-06-27 04:07] LABS: INR 1.03
[2024-06-27 05:13] LABS: ALT (SGPT) 20 U/L (0-50); AST (SGOT) 31 U/L (17-59); Albumin 2.9 g/dl (3.5-5.0); Alkaline Phosphatase 73 U/L (38-126); Blood Urea Nitrogen 23 mg/dl (9-20); Calcium 8.7 mg/dl (8.4-10.2); Carbon Dioxide 26 mmol/L (22-30); Chloride 106 mmol/L (98-107); Estimated Creatinine Clearance 114 ml/min; Glucose 96 mg/dl (70-99); Potassium 4.2 mmol/L (3.5-5.1); Sodium 134 mmol/L (135-145); Total Protein 5.3 g/dl (6.3-8.2); eGFR > 60.00
[2024-06-27 08:50] LABS: AFP Male/Tumor Marker 1.92 ng/ml
[2024-06-27] MEDS: PROTONIX 40 MG PO (09:33)
[2024-06-27] MEDS: DUPHALAC/CHRONULAC 30 GRAMS PO (09:33)
[2024-06-27] MEDS: MUCINEX 600 MG PO ×2 (09:33→21:08)
[2024-06-27] MEDS: PLAVIX 75 MG PO (09:34)
[2024-06-27] MEDS: ALDACTONE 25 MG PO (09:34)
[2024-06-27] MEDS: FOLVITE 1 MG PO (09:34)
[2024-06-27] MEDS: LASIX 40 MG PO (09:36)
[2024-06-27] MEDS: LOW STRENGTH ASPIRIN 81 MG PO (09:36)
[2024-06-27] MEDS: FLOMAX 0.4 MG PO (09:36)
--- NOTE | 2024-06-27 11:39 | W.PN.GI.CBS2 ---
Today's Communication / Plan
-
outpatient GI follow up, GI will sign off pls call with ?s
Assessment / Plan
-
Pt is a 68yo presents with hx PAF, cirrhosis followed by [facility], prior paracentesis, hepatic encephalopathy, hep C(? prior exposure with clearance no prior treatment), distant hx IVDA, prior ETOH/tobacco use, varicose veins BPH, HTN, hyperlipidemia,
anxiety, epidural hematoma RA, anasarca, and LE edema presents with chest pain and shortness of breath weakness. He was initially noted with bradycardia and hypotension but noted with wide complex tachycardia with rate 170's in ER with was given
medical therapy and also required cardioversion and also noted elevated troponin with concern for NSTEMI with concern for cardiogenic shock. Labs on admission notable for Na 129, K 5.2. Asked to see for hx cirrhosis and optimization during
admission.
-NSTEMI with likely cardiogenic shock on admission
-PAF s/p cardioversion on admission
-hx cirrhosis
-LE edema
-hx ascites with prior paracentesis
-hepatic encephalopathy
-hyperkalemia/hyponatremia on admission
other med problems:
-? hep C exposure and clearance
-hx IVDA/prior ETOH /prior tobacco abuse
-varicose veins
-BPH
-hyperlipidemia
-epidural hematoma
PLAN:
Pt with hx cirrhosis with follow with Dr. Naqvi at [facility] last office visit 02/2024
from liver standpoint appears stable with mild bili elevation but normal platelets, INR, renal function and albumin on admission with admission MELD 3.0- 18
no current signs of HE - awake and oriented without asterixis
US doppler no ascites - incidentally found panc cyst - I tried to update patient and went back to room a second time but off floor so printed copy to give to patient to nurse and d/w hospitalist - should follow up with outpatient GI ([facility]) for
MRI/MRCP
will need eventual GI follow up for EGD as no prior screening
continue diuretics per cardiology -- In February pt was on Lasix 40mg and Aldactone 100mg, now on Lasix 40mg and Aldactone 25mg -- monitor for recurrent ascites/LE edema
cont lactulose 30mg daily -- monitor mental status as was on Lactulose 45mg daily prior to admission and also prior Xifaxan several months ago
pt on plavix per cardiology - current normal hbg but close watch for bleeding
cont PPI daily
cont ETOH abstinence/avoid hepatotoxic medications
OP follow up with Dr. Naqvi after discharge
GI will sign off please call with ?s or changes in clinical status
Subjective
Subjective
Date of Service: June 27, 2024
No GI events overnight
Objective
Data Reviewed
Laboratory Data:
Laboratory Results
06/27/24 03:43
06/27/24 04:38
Laboratory Results
PT 14.0 Sec (11.4-14.6) 06/27/24 03:43
INR 1.03 06/27/24 03:43
APTT Cancelled 06/26/24 12:30
Phosphorus 2.5 mg/dl (2.5-4.5) 06/26/24 00:25
Magnesium 2.2 mg/dl (1.6-2.3) 06/26/24 00:25
Total Bilirubin 1.0 mg/dl (0.2-1.3) D 06/27/24 04:38
AST 31 U/L (17-59) 06/27/24 04:38
ALT 20 U/L (0-50) 06/27/24 04:38
Alkaline Phosphatase 73 U/L (38-126) 06/27/24 04:38
Vital Signs and I&O:
Vital Signs
Temp Pulse Resp BP Pulse Ox
98.3 F 55 19 123/78 95
06/27/24 03:44 06/27/24 09:36 06/27/24 06:00 06/27/24 09:36 06/27/24 03:44
I&O
06/26/24 06/27/24 06/28/24
06:59 06:59 06:59
Intake Total 485.0 / 485.0 1440 / 1440
Output Total 1200 / 1200 600 / 600
Balance -715.0 / -715.0 840 / 840
Physical Exam
Physical Exam
GI: Non Distended and Non Tender
--- NOTE | 2024-06-27 11:40 | PN.CDI ---
CDI
- -
CDI:
Physician Documentation Request
Admit Date: 06/24/24 19:18
Dear Doctor Neelam,
Please review the following and provide your response in the progress notes.
Current documentation includes a diagnosis of Shock.
Clinical Indicators:
- 06/25 PN 'NSTEMI with likely Cardiogenic shock'
- 06/26 PN 'NSTEMI with shock state, noncardiogenic per Cardiology'
- 06/25 Cardiology 'Vasodilatory shock with Elevated right and left filling pressures, normal cardiac index and low SVR on pressors, not cardiogenic'
- 06/24-06/25 Levophed
- No fluids given
Please clarify which of the following is the most likely etiology of the above symptoms and treatment rendered:
Cardiogenic shock
Shock, unknown type
Hypotension - indicate type/etiology, such as idiopathic, neurogenic or orthostatic, post-procedural, postoperative, due to hemodialysis, chronic, drug induced (indicate drug), etc.
Other (please specify)
Use of terms such as suspected, likely, concern for, or probable (associated with a specific diagnosis that is being evaluated, monitored, or treated as if it exists) are acceptable and can be coded in the inpatient setting, when documented at the
time of discharge.
Thank you,
Qiana Mckinney RN
CDI Specialist
Please use your independent medical judgment in providing your response.
--- NOTE | 2024-06-27 12:45 | PTCARENOTE ---
pt awake and alert , NPO this am for abdominal US , pt had study and now tolerating diet , NSR on cafeteria monitor HR 50-60 , BP 123/78 this am , ambulating in room without difficulty , pt seen by GI and told to follow up with outpatient for another
abdominal ultrasound and pt is aware , pt to be transferred to IVU room 5785
--- NOTE | 2024-06-27 13:04 | CM ---
Discharge POC: Return to [facility] for resumption of LTC. Follow-up as outpatient with GI.
--- NOTE | 2024-06-27 13:29 | W.PN.CARDCBS ---
Today's Communication / Plan
-
Declined ICD
Start low dose metoprolol
Will ask GI regarding safety of amiodarone
Impression / Plan
-
Impression:
Unstable wide-complex tachycardia at 170 bpm, VT versus SVT with aberrancy status post Emergent cardioversion with 100 J 06/24/2024 in the ED
Post cardioversion sinus arrest Requiring atropine
Sinus bradycardia
Chest pain/abnormal EKG/elevated troponin consistent with non-ST elevation myocardial infarct
Possible history of prior atrial fibrillation
Hyponatremia
Hyperkalemia on outpatient Aldactone 100 mg daily
Alcoholic cirrhosis with history of hepatic encephalopathy
Prior history of therapeutic paracentesis, last 6 months ago
Hepatitis C [Per GI consult found in [facility]]
Anasarca/venous insufficiency/chronic lower extremity edema
History of hypertension
Prior alcoholic
Resident at [facility]
-Chest x-ray post cardioversion: No acute cardiopulmonary process
-EKG June 24, 1699 post cardioversion, sinus bradycardia, heart rate 51 with PACs, LVH, T wave abnormality in the inferior lateral leads concerning for ischemia
-RHC 06/25/24:
HEMODYNAMICS : (mmHg)
RA (m) : 22
RV (s/d,m) : 46/16, 21
PA (s/d, m) : 47/27, 34
PCWP (m) : 25
PA saturation: 68.7% on room air
AO saturation: 90.8% on room air
RA saturation: 67.4% on room air
Cardiac Output : 5.8 L/min by Kati calculation
Cardiac Index : 2.67 L/min/m-2 by Kati calculation
Systemic vascular resistance: 874 dsc^(-5) on 6 mcg of Levophed
Pulmonary vascular resistance: 1.80 luna unit
AO (s/d) : 105/74, mean of 86
LVEDP : 25
No significant gradient across the aortic valve to suggest aortic stenosis.
-[facility] 06/25/24: Dominance: Right. Left Main Trunk (LMT): Large caliber vessel that gives rise to the LAD and LCx branches and is free of angiographic disease.
Left Anterior Descending Artery (LAD): Large caliber vessel that gives off 2 major small caliber diagonal branches as it courses along the anterior inter-ventricular groove before wrapping around the cardiac apex. Mid LAD has a 40 to 50% stenosis
just distal to D2 takeoff with ESTEFANI-3 flow into the distal vessel. D2 is a small caliber vessel with 2 serial 50 to 60% stenoses with ESTEFANI-3 flow into the distal portion. Left Circumflex Artery (LCx): Large caliber vessel that gives off one major
obtuse marginal (OM) branch as it courses along the atrio-ventricular (AV) groove. The LCx and its branches are free of angiographic obstructive disease. There is mild diffuse atherosclerotic plaque. Right Coronary Artery (RCA): Large caliber
dominant vessel that gives rise to the posterior descending artery (RPDA) and postero-lateral ventricular (RPLV) branches distally. Distal RCA has a smooth 60 to 70% stenosis but with ESTEFANI-3 flow into the distal vessels. No intervention performed
-Echocardiogram done in the ED following cardioversion for unstable wide-complex tachycardia 06/24/2024: Normal left ventricular size. Mildly reduced left ventricular systolic function estimated by Patel's biplane method 48%. Mild basal inferior
and basal�mid inferolateral hypokinesis. Enlarged right ventricle with mildly reduced RV systolic function. Biatrial dilatation. Trace mitral regurgitation. Mild tricuspid regurgitation. Minimal aortic sclerosis. Estimated pulmonary artery
pressure 20 mmHg. No pericardial effusion.
Plan:
Unstable wide-complex tachycardia requiring urgent cardioversion - suspected VT
-Requiring cardioversion in ER
-Per EP likely VT
-Patient does have PVCs but no further NSVT or sustained VT
-Patient declined ICD
-Beta-frank held for now secondary to bradycardia. Would resume post ICD implant if patient agrees
-Will ask GI to weigh in on future use of amiodarone
Vasodilatory shock (resolved)
-RHC with elevated right and left filling pressures, normal cardiac index and low SVR
-Has been weaned off pressor
Chest pain with NSTEMI, peak troponin 1.64
-LHC showing diffuse moderate coronary disease involving circumflex and RCA with ESTEFANI III flow and no culprit lesion. No intervention performed
-Currently chest pain-free
-Continue aspirin 81 mg daily and plavix for ideally 6-12 months
-Atorvastatin 80 mg initiated
Mildly reduced LV systolic function and dilated hypokinetic right ventricle.
-Prehospitalization he had been on Lasix 80 mg daily and Aldactone 100 mg daily for fluid retention/ascites related to cirrhosis
-Lasix restarted at lower dose 40 mg and Aldactone at lower dose 25 mg daily
-Start low dose Toprol XL
-Consider YANIRA/ARB as BP allows
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
Subjective
Date of Service: June 27, 2024
No acute overnight events. Patient resting comfortably out of bed to chair eating breakfast. No cardiac complaints.
Objective
Labs:
06/27/24 03:43
06/27/24 04:38
Labs
Hgb 11.8 g/dL (13.0-18.0) L 06/27/24 03:43
Hct 33.5 % (39.0-52.0) L 06/27/24 03:43
Plt Count 136 10^3/uL (130-400) 06/27/24 03:43
PT 14.0 Sec (11.4-14.6) 06/27/24 03:43
INR 1.03 06/27/24 03:43
APTT Cancelled 06/26/24 12:30
Sodium 134 mmol/L (135-145) L 06/27/24 04:38
Potassium 4.2 mmol/L (3.5-5.1) 06/27/24 04:38
BUN 23 mg/dl (9-20) H 06/27/24 04:38
Creatinine 0.7 mg/dL (0.7-1.3) 06/27/24 04:38
Glucose 96 mg/dl (70-99) 06/27/24 04:38
Troponins
06/24/24 06/24/24 06/25/24
16:37 20:04 00:32
Troponin I 1.190 H* 1.530 H* D 1.640 H*
06/25/24
03:35
Troponin I 1.590 H*
Vital Signs and I&O:
Vital Signs
Temp Pulse Resp BP Pulse Ox
97.7 F 60 12 123/78 95
06/27/24 08:00 06/27/24 12:00 06/27/24 08:00 06/27/24 09:36 06/27/24 03:44
Vital Signs
Temp Pulse Resp BP Pulse Ox
97.7 F 60 12 123/78 95
06/27/24 08:00 06/27/24 12:00 06/27/24 08:00 06/27/24 09:36 06/27/24 03:44
Intake & Output
06/25/24 06/26/24 06/27/24 06/28/24
06:59 06:59 06:59 06:59
Intake Total 258.8 / 278.3 485.0 / 485.0 1440 / 1440 250 / 250
Output Total 400 / 400 1200 / 1200 600 / 600
Balance -141.2 / -121.7 -715.0 / -715.0 840 / 840 250 / 250
Physical Exam
Physical Exam
Gen: NAD, AA
HEENT: NC/AT, sclera anicteric, temporal wasting
Neck: No JVD
CV: RRR, NL s1/s2
Lungs: CTAB
Abd: S/ND
Ext: No LE edema
Skin: Warm, dry
Neuro: Non-focal
--- NOTE | 2024-06-27 13:58 | PTCARENOTE ---
Received patient from ICU to 2240. Oriented to room and plan of care, patient ambulating in the room, gait steady. VSS, SR on the monitor with 1st degree HB. Patient ordering lunch, assessment unchanged from previous nurse's assessment.
--- NOTE | 2024-06-27 14:07 | W.PN.HOSP.TC ---
Today's Communication/Plan
-
medical management per Cardiology with patient declining ICD
Assessment / Plan
Assessment / Plan
Assessment:
NSTEMI with shock state, noncardiogenic per Cardiology - unknown type of distributive shock
- s/p Cath 06/25: nonobstructive CAD
- continue ASA/Plavix x 6 months
- continue Statin
- s/p IV heparin
- Cards following
Parox Afib
Unstable wide-complex tachycardia at 170 bpm, VT versus SVT with aberrancy status post Emergent cardioversion with 100 J 06/24/2024 in the ED
- s/p Cardioversion followed by pause and sinus bradycardia requiring Atropine
- s/p Amio drip
- ICD offered but patient declined
- continue Metoprolol
- possible Amiodarone if ok with GI
- [employer] form to be completed for temporary license pause until patient can be seen in follow up and establish safety for resuming driving.
- d/w Cards service for outpatient environmental monitoring specialist to evalute this.
Syncope with turning head
- Carotid US unremarkable
GERD - PPI
Reactive leukocytosis
- resolved
- cultures negative
Lactic acidosis (metabolic acidosis) in setting of shock
- resolved
Hyponatremia and Hyperkalemia
- improving with IVF
Hx of ETOH cirrhosis with history of hepatic encephalopathy
- GI following for optimization; OP GI f/u with GI associates [facility]
- continue diuretics
Insomnia
- Lorazepam, trazodone continued at bedtime
BPH
- Tamsulosin continued
DVT prophylaxis: SCDs
Code: Full
Anticipated Discharge: 24 - 48 hours
Subjective/Interval History
-
Date of Service: June 27, 2024
resting comfortably, no complaints
Objective Data
-
Labs:
Laboratory Results
06/27/24 06/27/24
03:43 04:38
WBC 4.0 L
Hgb 11.8 L
Hct 33.5 L
Plt Count 136
PT 14.0
INR 1.03
Sodium Cancelled 134 L
Potassium Cancelled 4.2
Chloride Cancelled 106
Carbon Dioxide Cancelled 26
BUN Cancelled 23 H
Creatinine Cancelled 0.7
Glucose Cancelled 96
Calcium Cancelled 8.7
Total Bilirubin Cancelled 1.0 D
AST Cancelled 31
ALT Cancelled 20
Alkaline Phosphatase Cancelled 73
Vital Signs:
Vital Signs
Temp Pulse Resp BP Pulse Ox
97.8 F 69 16 111/77 99
06/27/24 13:50 06/27/24 13:37 06/27/24 13:50 06/27/24 13:37 06/27/24 13:50
I&O
06/26/24 06/27/24 06/28/24
06:59 06:59 06:59
Intake Total 485.0 / 485.0 1440 / 1440 250 / 250
Output Total 1200 / 1200 600 / 600
Balance -715.0 / -715.0 840 / 840 250 / 250
Physical Exam
-
General: No Apparent Distress
HEENT: Normocephalic and Atraumatic
Respiratory: Negative Wheezes
Cardiac: Regular Rhythm
GI: Soft
Musculoskeletal: No Edema
Neuro: AO x 3
Psych: Calm
Data Reviewed
-
Total Time Spent with Patient (in minutes): 42
Labs: Labs Reviewed by me
--- NOTE | 2024-06-27 16:39 | CM ---
spoke to pt in room, i confirmed that he does live at [facility] as a senior living resident and he would like to return upon dc. cm following.
[2024-06-27] MEDS: LIPITOR 80 MG PO (18:30)
--- NOTE | 2024-06-27 21:47 | PTCARENOTE ---
Rec'd pt at change of shift. Pt AAO*3, VSS, and SR on TELE monitor with BBB and 1st degree av block. Pt denies any pain or discomfort and updated on plan of care. Pt resting with call triana in reach and plan of care ongoing.
[2024-06-27] MEDS: DESYREL 50 MG PO (22:12)
[2024-06-27] MEDS: ATIVAN 0.5 MG PO (22:12)
[2024-06-28] VITALS (14 sets, daily range): BP systolic 100–128; BP diastolic 61–100; PULSE 95; BMI 27.4
[2024-06-28 04:34] LABS: Hematocrit 38.7 % (39.0-52.0); Hemoglobin 13.5 g/dL (13.0-18.0); Mean Corp Hgb Conc. 34.9 g/dL (33.0-37.0); Mean Corpuscular Hgb 31.8 pg (27.0-31.0); Mean Corpuscular Volume 91.1 fL (80.0-94.0); Mean Platelet Volume 9.9 fL (7.4-10.4); Platelet Count 156 10^3/uL (130-400); Red Blood Cell Count 4.25 10^6/uL (4.70-6.10); Red Cell Dist. Width 12.5 % (11.5-14.5); White Blood Cell Count 5.1 10^3/uL (4.8-10.8)
[2024-06-28 04:59] LABS: ALT (SGPT) 19 U/L (0-50); AST (SGOT) 29 U/L (17-59); Albumin 3.1 g/dl (3.5-5.0); Alkaline Phosphatase 93 U/L (38-126); Blood Urea Nitrogen 18 mg/dl (9-20); Calcium 8.8 mg/dl (8.4-10.2); Carbon Dioxide 26 mmol/L (22-30); Chloride 106 mmol/L (98-107); Estimated Creatinine Clearance > 125 ml/min; Glucose 102 mg/dl (70-99); Potassium 4.4 mmol/L (3.5-5.1); Sodium 135 mmol/L (135-145); Total Bilirubin 0.6 mg/dl (0.2-1.3); Total Protein 5.5 g/dl (6.3-8.2); eGFR > 60.00
[2024-06-28] MEDS: LASIX 40 MG PO (08:25)
[2024-06-28] MEDS: MUCINEX 600 MG PO ×2 (08:31→22:08)
[2024-06-28] MEDS: DUPHALAC/CHRONULAC 30 GRAMS PO (08:31)
[2024-06-28] MEDS: LOW STRENGTH ASPIRIN 81 MG PO (08:31)
[2024-06-28] MEDS: FOLVITE 1 MG PO (08:31)
[2024-06-28] MEDS: PLAVIX 75 MG PO (08:31)
[2024-06-28] MEDS: FLOMAX 0.4 MG PO (08:31)
[2024-06-28] MEDS: ALDACTONE 25 MG PO (08:31)
[2024-06-28] MEDS: PROTONIX 40 MG PO (08:31)
[2024-06-28] MEDS: PACERONE 400 MG PO ×3 (10:50→23:48)
--- NOTE | 2024-06-28 11:23 | PTCARENOTE ---
Pt is AOx3, no complaints of pain or discomfort. Independent OOB. SR w/ 1st HB on tele monitor, VSS. Call triana within reach.
--- NOTE | 2024-06-28 12:58 | W.PN.HOSP.TC ---
Today's Communication/Plan
-
Schedule ICD if patient agrees; made NPO p MN just in case. Ongoing discussions.
monitor tele on Amio/BB
Assessment / Plan
Assessment / Plan
Assessment:
NSTEMI with shock state, noncardiogenic per Cardiology - unknown type of distributive shock
- s/p Cath 06/25: nonobstructive CAD
- continue ASA/Plavix x 6 months
- continue Statin
- s/p IV heparin
- Cards following
Parox Afib
Unstable wide-complex tachycardia at 170 bpm, VT versus SVT with aberrancy status post Emergent cardioversion with 100 J 06/24/2024 in the ED
- s/p Cardioversion followed by pause and sinus bradycardia requiring Atropine
- s/p Amio drip
- ICD offered but patient declined; now appears more agreeable
- continue Metoprolol/Amiodarone
- [employer] form to be completed for temporary license pause until patient can be seen in follow up and establish safety for resuming driving.
- follow DCA/EP cards
Syncope with turning head
- Carotid US unremarkable
GERD - PPI
Reactive leukocytosis
- resolved
- cultures negative
Lactic acidosis (metabolic acidosis) in setting of shock
- resolved
Hyponatremia and Hyperkalemia
- improving with IVF
Hx of ETOH cirrhosis with history of hepatic encephalopathy
- GI following for optimization; OP GI f/u with GI associates [facility]
- continue diuretics
Insomnia
- Lorazepam, trazodone continued at bedtime
BPH
- Tamsulosin continued
DVT prophylaxis: SCDs
Code: Full
Anticipated Discharge: > 48 hours
Subjective/Interval History
-
Date of Service: June 28, 2024
resting comfortably
now appears agreeable to ICD
Objective Data
-
Labs:
Laboratory Results
06/28/24
03:51
WBC 5.1
Hgb 13.5
Hct 38.7 L
Plt Count 156
Sodium 135
Potassium 4.4
Chloride 106
Carbon Dioxide 26
BUN 18
Creatinine 0.6 L
Glucose 102 H
Calcium 8.8
Total Bilirubin 0.6
AST 29
ALT 19
Alkaline Phosphatase 93
Vital Signs:
Vital Signs
Temp Pulse Resp BP Pulse Ox
98.9 F 66 16 106/61 99
06/28/24 12:12 06/28/24 12:15 06/28/24 12:12 06/28/24 12:15 06/28/24 12:12
I&O
06/27/24 06/28/24 06/29/24
06:59 06:59 06:59
Intake Total 1440 / 1440 1330 / 1330
Output Total 600 / 600
Balance 840 / 840 1330 / 1330
Physical Exam
-
General: No Apparent Distress
HEENT: Normocephalic and Atraumatic
Respiratory: Negative Wheezes
Cardiac: Regular Rhythm and S1/S2
GI: Soft and Nontender
Neuro: AO x 3
Psych: Calm
Data Reviewed
-
Total Time Spent with Patient (in minutes): 42
Labs: Labs Reviewed by me
--- NOTE | 2024-06-28 13:12 | CM ---
CM following for DC planning needs.
Reviewed initial assessment. Pt. is a resident of [facility].
Met w/ patient at bedside on this date. Pt. confirms that he has been at [facility] for 1.5 years. Despite some confusion, he confirms that he HAS NOT driven since he has been at [facility].
He, however, wishes to maintain his license in the hopes that he can eventually leave [facility].
This is causing him some stress regarding whether to have a defibrillator placed. Emotional support provided.
DC plan is to return to [facility].
CM to assist with transitioning back to [facility].
--- NOTE | 2024-06-28 13:44 | W.PN.CARDCBS ---
Addendum entered and electronically signed by Aldair Kim MD 06/28/24 14:31:
I saw and examined the patient.
The Galley Worker's note was reviewed and I agree with the note.
Comment: Briefly, 68-year-old man past medical history of cirrhosis presenting with chest discomfort found to be in ventricular tachycardia for which he underwent emergent cardioversion at the time ER on 06/24/2024. Subsequently underwent left heart
catheterization which revealed moderate coronary artery disease without culprit vessel.
No further chest discomfort
Telemetry reviewed showing sinus rhythm with occasional PVCs but no NSVT or VT
Continue low-dose metoprolol
Discussed with electrophysiology as well as gastroenterology. With limited antiarrhythmic options will plan to initiate oral amiodarone.
Patient is now agreeable to ICD implant. Will make n.p.o. at midnight for procedure tomorrow.
In regards to his NSTEMI/coronary artery disease recommend continuing aspirin/Plavix, high intensity statin and beta-frank
Echo here showing mildly reduced LV function
Appears euvolemic on exam
Continue Lasix/Aldactone given history of cirrhosis
New to metoprolol
Additional GDMT limited by patient's borderline blood pressure
Rest per Mel Eaton
Original Note:
Today's Communication / Plan
-
ICD in AM
Impression / Plan
-
PCP: Dr. Cifuentes
Cardio: None prior to admission
Impression:
Admitted with unstable wide-complex tachycardia, likely VT, at 170 bpm 06/24/24
s/p emergent cardioversion with 100 J 06/24/2024 in the ED
Post cardioversion sinus arrest Requiring atropine
Sinus bradycardia
Chest pain
Abnormal EKG
Elevated troponin
Moderate CAD without culprit lesion
Possible history of prior atrial fibrillation
Hyponatremia
Hyperkalemia on outpatient Aldactone 100 mg daily
Alcoholic cirrhosis with history of hepatic encephalopathy
Prior history of therapeutic paracentesis, last 6 months ago
Hepatitis C, per GI consult found in [facility]
Anasarca/venous insufficiency/chronic lower extremity edema
History of hypertension
Prior alcoholic
Resident at [place]
[facility] 06/25/24: HEMODYNAMICS : (mmHg)
RA (m) : 22
RV (s/d,m) : 46/16, 21
PA (s/d, m) : 47/27, 34
PCWP (m) : 25
PA saturation: 68.7% on room air
AO saturation: 90.8% on room air
RA saturation: 67.4% on room air
Cardiac Output : 5.8 L/min by Kati calculation
Cardiac Index : 2.67 L/min/m-2 by Kati calculation
Systemic vascular resistance: 874 dsc^(-5) on 6 mcg of Levophed
Pulmonary vascular resistance: 1.80 luna unit
AO (s/d) : 105/74, mean of 86
LVEDP : 25
No significant gradient across the aortic valve to suggest aortic stenosis.
[facility] 06/25/24: Dominance: Right. Left Main Trunk (LMT): Large caliber vessel that gives rise to the LAD and LCx branches and is free of angiographic disease.
Left Anterior Descending Artery (LAD): Large caliber vessel that gives off 2 major small caliber diagonal branches as it courses along the anterior inter-ventricular groove before wrapping around the cardiac apex. Mid LAD has a 40 to 50% stenosis
just distal to D2 takeoff with ESTEFANI-3 flow into the distal vessel. D2 is a small caliber vessel with 2 serial 50 to 60% stenoses with ESTEFANI-3 flow into the distal portion. Left Circumflex Artery (LCx): Large caliber vessel that gives off one major
obtuse marginal (OM) branch as it courses along the atrio-ventricular (AV) groove. The LCx and its branches are free of angiographic obstructive disease. There is mild diffuse atherosclerotic plaque. Right Coronary Artery (RCA): Large caliber
dominant vessel that gives rise to the posterior descending artery (RPDA) and postero-lateral ventricular (RPLV) branches distally. Distal RCA has a smooth 60 to 70% stenosis but with ESTEFANI-3 flow into the distal vessels. No intervention performed
Echo 06/25/24: done in the ED following cardioversion for unstable wide-complex tachycardia 06/24/2024: Normal left ventricular size. Mildly reduced left ventricular systolic function estimated by Patel's biplane method 48%. Mild basal inferior
and basal�mid inferolateral hypokinesis. Enlarged right ventricle with mildly reduced RV systolic function. Biatrial dilatation. Trace mitral regurgitation. Mild tricuspid regurgitation. Minimal aortic sclerosis. Estimated pulmonary artery
pressure 20 mmHg. No pericardial effusion.
Plan:
-Patient with unstable WCT on admission and had emergent CV in the ER 06/24/24. EP reviewed ECG and it was likely VT. Patient was told that he cannot drive. Patient has been recommended ICD since 06/26/24 and he has been doing his own research and
talking with various providers. Patient says he is now agreeable to ICD in AM.
-Amiodarone gtt initially and now ordered amiodarone 400 mg TID 06/28/24
-Outpatient dose of nadolol changed to Toprol XL 12.5 mg daily, but doses have been held for bradycardia
-Initially required Levophed for cardiogenic shock, but now weaned and tolerating GDMT
-Chest pain on admission with peak troponin 1.64. Echo with WMA. 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 No intervention performed. Will manage
as a NSTEMI
-New to aspirin and Plavix this admission
-LDL 187, new to atorvastatin 80 mg daily
-Weight is down 5 lbs overnight if accurate with IV diuresis. Lasix 40 mg PO daily currently ordered
-EF 48% by echo and mildly reduced LV systolic function and dilated hypokinetic right ventricle.
-Outpatient dose of spironolactone decreased to 25 mg daily due to hypotension. Spironolactone was higher dose as an outpatient for fluid retention/ascites related to cirrhosis
-Toprol XL with bradycardia as above
-Consider YANIRA/ARB as BP allows
Progress Note - Molding Utility Worker
Subjective
Date of Service: June 28, 2024
No pain
Objective
Labs:
06/28/24 03:51
06/28/24 03:51
Labs
Hgb 13.5 g/dL (13.0-18.0) 06/28/24 03:51
Hct 38.7 % (39.0-52.0) L 06/28/24 03:51
Plt Count 156 10^3/uL (130-400) 06/28/24 03:51
PT 14.0 Sec (11.4-14.6) 06/27/24 03:43
INR 1.03 06/27/24 03:43
APTT Cancelled 06/26/24 12:30
Sodium 135 mmol/L (135-145) 06/28/24 03:51
Potassium 4.4 mmol/L (3.5-5.1) 06/28/24 03:51
BUN 18 mg/dl (9-20) 06/28/24 03:51
Creatinine 0.6 mg/dL (0.7-1.3) L 06/28/24 03:51
Glucose 102 mg/dl (70-99) H 06/28/24 03:51
Vital Signs and I&O:
Vital Signs
Temp Pulse Resp BP Pulse Ox
98.9 F 66 16 106/61 99
06/28/24 12:12 06/28/24 12:15 06/28/24 12:12 06/28/24 12:15 06/28/24 12:12
Vital Signs
Temp Pulse Resp BP Pulse Ox
98.9 F 66 16 106/61 99
06/28/24 12:12 06/28/24 12:15 06/28/24 12:12 06/28/24 12:15 06/28/24 12:12
Intake & Output
06/26/24 06/27/24 06/28/24 06/29/24
06:59 06:59 06:59 06:59
Intake Total 485.0 / 485.0 1440 / 1440 1330 / 1330
Output Total 1200 / 1200 600 / 600
Balance -715.0 / -715.0 840 / 840 1330 / 1330
Physical Exam
Physical Exam
General: NAD. AAO x3
Heart: SR on tele
Lungs: RA
Abd: ND
Ext: + edema with bilateral varicosities
[2024-06-28] MEDS: LIPITOR 80 MG PO (17:21)
[2024-06-28] MEDS: TOPROL XL 12.5 MG PO (22:08)
[2024-06-28] MEDS: DESYREL 50 MG PO (23:48)
[2024-06-28] MEDS: TYLENOL 650 MG PO (23:48)
[2024-06-28] MEDS: ATIVAN 0.5 MG PO (23:48)
[2024-06-29] VITALS (13 sets, daily range): BP systolic 84–116; BP diastolic 57–79; BMI 27.3
--- NOTE | 2024-06-29 01:38 | PTCARENOTE ---
Rec'd pt of shift. AAO*3, VSS, and SR on TELE monitor with bijeminy on TELE monitor. PT reported R shoulder pain and prn tylenol given as ordered. Pt NPO after midnight for possible procedure in AM. Pt resting with call triana in reach and plan of
care ongoing. See MAR and flowchart for full pt care.
[2024-06-29 04:24] LABS: Hematocrit 42.4 % (39.0-52.0); Mean Corp Hgb Conc. 35.4 g/dL (33.0-37.0); Mean Corpuscular Hgb 32.2 pg (27.0-31.0); Mean Platelet Volume 9.8 fL (7.4-10.4); Platelet Count 167 10^3/uL (130-400); Red Blood Cell Count 4.66 10^6/uL (4.70-6.10); Red Cell Dist. Width 12.3 % (11.5-14.5); White Blood Cell Count 6.7 10^3/uL (4.8-10.8)
[2024-06-29 04:33] LABS: ALT (SGPT) 21 U/L (0-50); AST (SGOT) 31 U/L (17-59); Albumin 3.2 g/dl (3.5-5.0); Alkaline Phosphatase 86 U/L (38-126); Blood Urea Nitrogen 17 mg/dl (9-20); Calcium 8.9 mg/dl (8.4-10.2); Carbon Dioxide 26 mmol/L (22-30); Chloride 105 mmol/L (98-107); Estimated Creatinine Clearance > 125 ml/min; Glucose 107 mg/dl (70-99); Potassium 4.6 mmol/L (3.5-5.1); Sodium 134 mmol/L (135-145); Total Bilirubin 0.8 mg/dl (0.2-1.3); Total Protein 5.9 g/dl (6.3-8.2); eGFR > 60.00
--- NOTE | 2024-06-29 06:31 | PTCARENOTE ---
Pt given bed bath, chest hair clipped, chg bath complete, linen changes, and pt npo since midnight.
[2024-06-29] MEDS: DUPHALAC/CHRONULAC 30 GRAMS PO (09:46)
[2024-06-29] MEDS: ALDACTONE PO (09:50)
[2024-06-29] MEDS: FOLVITE 1 MG PO (09:51)
[2024-06-29] MEDS: MUCINEX 600 MG PO ×2 (09:51→19:25)
[2024-06-29] MEDS: PACERONE 400 MG PO ×3 (09:51→21:27)
[2024-06-29] MEDS: PROTONIX 40 MG PO (09:51)
[2024-06-29] MEDS: FLOMAX 0.4 MG PO (09:51)
[2024-06-29] MEDS: LOW STRENGTH ASPIRIN 81 MG PO (09:52)
[2024-06-29] MEDS: PLAVIX 75 MG PO (09:52)
[2024-06-29] MEDS: TOPROL XL 12.5 MG PO (09:52)
--- NOTE | 2024-06-29 10:22 | CM ---
CM following for DC planning needs.
Met w/ patient at bedside. Pt. anticipating procedure today. He feels okay about his decision.
DC plan is to return to [facility]. I have sent updated clinical info. to [facility] for review.
No skilled needs identified.
Plan is for return to [facility] upon DC.
[2024-06-29] MEDS: LASIX PO (12:53)
--- NOTE | 2024-06-29 13:05 | W.PN.HOSP.TC ---
Today's Communication/Plan
-
ICD today
continue BB/Amiodarone
Assessment / Plan
Assessment / Plan
Assessment:
NSTEMI with shock state, noncardiogenic per Cardiology - unknown type of distributive shock
- s/p Cath 06/25: nonobstructive CAD
- continue ASA/Plavix x 6 months
- continue Statin
- s/p IV heparin
- Cards following
Parox Afib
Unstable wide-complex tachycardia at 170 bpm, VT versus SVT with aberrancy status post Emergent cardioversion with 100 J 06/24/2024 in the ED
- s/p Cardioversion followed by pause and sinus bradycardia requiring Atropine
- s/p Amio drip
- ICD today
- continue Metoprolol/Amiodarone
- [employer] form to be completed for temporary license pause until patient can be seen in follow up and establish safety for resuming driving.
- follow DCA/EP cards
Syncope with turning head
- Carotid US unremarkable
GERD - PPI
Reactive leukocytosis
- resolved
- cultures negative
Lactic acidosis (metabolic acidosis) in setting of shock
- resolved
Hyponatremia and Hyperkalemia
- improving with IVF
Hx of ETOH cirrhosis with history of hepatic encephalopathy
- GI following for optimization; OP GI f/u with GI associates [place]
- continue diuretics
Insomnia
- Lorazepam, trazodone continued at bedtime
BPH
- Tamsulosin continued
DVT prophylaxis: SCDs
Code: Full
Anticipated Discharge: Within 24 hours
Subjective/Interval History
-
Date of Service: June 29, 2024
resting comfortably, no complaints at present
for ICD today
Objective Data
-
Labs:
Laboratory Results
06/29/24
04:02
WBC 6.7
Hgb 15.0
Hct 42.4
Plt Count 167
Sodium 134 L
Potassium 4.6
Chloride 105
Carbon Dioxide 26
BUN 17
Creatinine 0.5 L
Glucose 107 H
Calcium 8.9
Total Bilirubin 0.8
AST 31
ALT 21
Alkaline Phosphatase 86
Vital Signs:
Vital Signs
Temp Pulse Resp BP Pulse Ox
98.3 F 59 20 102/68 99
06/29/24 11:31 06/29/24 12:00 06/29/24 11:31 06/29/24 11:32 06/29/24 12:53
I&O
06/28/24 06/29/24 06/30/24
06:59 06:59 06:59
Intake Total 1330 / 1330 480 / 480
Balance 1330 / 1330 480 / 480
Physical Exam
-
General: No Apparent Distress
HEENT: Normocephalic and Atraumatic
Respiratory: Negative Wheezes
Cardiac: Regular Rhythm and S1/S2
GI: Soft and Nontender
Musculoskeletal: No Edema
Neuro: AO x 3
Psych: Calm
Data Reviewed
-
Total Time Spent with Patient (in minutes): 41
Labs: Labs Reviewed by me
--- NOTE | 2024-06-29 15:45 | ITS.CL.ICD ---
Privacy Officer - ICD
Implantable Cardioverter Defibrillator
Procedure Report:
ICD IMPLANTATION REPORT
Date of Procedure: June 29, 2024
Primary director outcomes: Dr Wendi Milner
PROCEDURES:
ICD Implant
HISTORY:
Sustained hemodynamically unstable monomorphic ventricular tachycardia requiring ICD shock
Infarct based cardiomyopathy. Basal inferior and basal mid inferolateral hypokinesis with overall LVEF of 48%
This is a secondary prevention device implantation indication
life expectancy > 1 year
Lidocaine with epi was used for local anesthesia. Central venous access was obtained via axillary venipuncture. An incision was made along the left chest and a pre-pectoral pocket was formed. Using a Seldinger technique and peel-away sheaths, the
pacing leads were placed under fluoroscopic guidance.
Once testing (see below) showed adequate and stable function, the leads were secured using the suture sleeves. The pocket was liberally irrigated with antibiotic solution. The leads were connected to the generator header and the leads and
generator were placed within the pocket. Fluoroscopy then demonstrated that the atrial lead had dislodged.
The pocket was reentered and the atrial lead was repositioned and resecured. The lead was reconnected to the ICD generator and the ICD generator and leads were placed within the pocket.
Fluoroscopy then confirmed stable lead position. The pocket was closed in the typical fashion.
FLUOROSCOPY:
Fluoroscopy was used to guide lead placement.
IMPLANTS:
ICD Medtronic [id number], SN [id number], Left Pectoral
RA Medtronic 5076, SN [id number], RAA
RV Medtronic 6935, SN [id number], RV apical septum
DEVICE TESTING:
Sensing: RA 2.4 mV, RV 7 point mV
Capture: RA 1.25 V@0.5ms, RV 0.5 V@0.5ms
Ohms: RA 551, RV 494
FINAL PROGRAMMING:
Wilbur Pacing: MVP mode 60 - 130 ppm
Tachy parameters:
VF: 188 bpm, Shock
VT via VF: 188 - 214 bpm, iATP, Shock
VT: 150 bpm, iATP, Shock
COMPLICATIONS:
None
CONCLUSIONS:
Successful implant of dual chamber ICD system.
RECOMMENDATIONS:
Post op care (tele, CXR, IV abx).
In-Office wound check in 5-7 days.
Copy to:
Dr Wendi Milner
[2024-06-29] MEDS: LIPITOR 80 MG PO (17:34)
[2024-06-29] MEDS: TYLENOL 650 MG PO ×2 (17:49→22:11)
--- NOTE | 2024-06-29 19:31 | PTCARENOTE ---
Pt returned from EP lab post ICD insertion in left anterior chest. Pressure dressing over left chest wound, no sign of bleeding or hematoma, pt given tylenol for incisional discomfort. Activity restrictions reviewed with pt who states understanding.
Telemetry shows AV paced rhythm.
[2024-06-29] MEDS: ATIVAN 0.5 MG PO (21:27)
[2024-06-29] MEDS: DESYREL 50 MG PO (21:27)
--- NOTE | 2024-06-29 21:42 | PTCARENOTE ---
Pt received this evening with left arm immobilizer intact. Left chest dressing dry and intact with a pressure dressing. No c/o of pain at this time. Pt taken for the CXR as ordered.
[2024-06-29] MEDS: ANCEF 5 IV (22:11)
[2024-06-30] VITALS (8 sets, daily range): BP systolic 97–151; BP diastolic 67–90; PULSE 70; O2SAT 96; BMI 27.4
--- NOTE | 2024-06-30 00:25 | PTCARENOTE ---
Rec'd pt at change of shift. Pt AAO*3, VSS, and A / AV paced on TELE monitor. Pt reports mild pain at ICD site. Tylenol given as ordered. L upper chest CDI. Pt resting with call triana in reach and plan of care ongoing. See MAR and flowchart for
full pt care and assessment.
[2024-06-30 04:19] LABS: Hemoglobin 13.8 g/dL (13.0-18.0); Mean Corp Hgb Conc. 34.5 g/dL (33.0-37.0); Mean Corpuscular Volume 92.8 fL (80.0-94.0); Mean Platelet Volume 9.8 fL (7.4-10.4); Platelet Count 152 10^3/uL (130-400); Red Blood Cell Count 4.31 10^6/uL (4.70-6.10); Red Cell Dist. Width 12.3 % (11.5-14.5); White Blood Cell Count 6.3 10^3/uL (4.8-10.8)
[2024-06-30 04:34] LABS: ALT (SGPT) 21 U/L (0-50); AST (SGOT) 34 U/L (17-59); Albumin 2.9 g/dl (3.5-5.0); Alkaline Phosphatase 84 U/L (38-126); Blood Urea Nitrogen 15 mg/dl (9-20); Calcium 8.7 mg/dl (8.4-10.2); Carbon Dioxide 26 mmol/L (22-30); Chloride 106 mmol/L (98-107); Estimated Creatinine Clearance > 125 ml/min; Glucose 101 mg/dl (70-99); Potassium 4.5 mmol/L (3.5-5.1); Sodium 135 mmol/L (135-145); Total Bilirubin 0.8 mg/dl (0.2-1.3); Total Protein 5.4 g/dl (6.3-8.2); eGFR > 60.00
[2024-06-30] MEDS: TYLENOL 650 MG PO ×2 (05:37→14:42)
[2024-06-30] MEDS: ANCEF 5 IV (05:41)
--- NOTE | 2024-06-30 07:34 | W.PN.CARDCBS ---
Addendum entered and electronically signed by Wendi Milner DO 06/30/24 10:13:
I saw and examined the patient.
The Clinical Lab Scientist's note was reviewed and I agree with the note.
Comment: Patient was seen and examined sitting out of bed to chair. No chest pain or pressure, no shortness of breath. Difficulty getting out of chair without assistance
GEN: NAD, RA
HEENT: mmm
LUNGS: CTA, no wheezes/rales
CV: Reg, S1/S2, no murmur, rub or gallop
Chest: left ICD incision w/ Aquacel dressing C/D/I, no hematoma
ABD: soft, BS+, NT/ND
EXT: No edema. Varicose veins Rt>Lt LE.
Plan:
Unstable wide-complex tachycardia requiring urgent cardioversion, favoring VT @ 170 bpm 06/24/24
-Status post dual-chamber Medtronic ICD 06/29/2024
-Post procedure chest x-ray with subtle, probable left apical pneumothorax for repeat chest x-ray today. Patient is on room air and denies shortness of breath
-Initiated on amiodarone load, currently amiodarone 400 mg 3 times daily. Would discharge on 400 mg twice daily for 2 weeks followed by 400 mg daily with further decrease planned as an outpatient in the office.
-Started on Toprol succinate 12.5 mg daily
-Hemoglobin postprocedure 13.8, platelets 152,000. Sodium 135, potassium 4.5, BUN/creatinine 15/0.6. Magnesium 2. LFTs within normal limits. TSH normal 3.16
-Will be enrolled in our device clinic and outpatient cardiac follow-up being arranged
- Given unstable VT requiring shock at presentation now status post ICD no driving for 3 months
Chest pain with NSTEMI, peak troponin 1.64
-Patient has diffuse moderate coronary disease involving circumflex and RCA with ESTEFANI III flow and no culprit lesion. No intervention performed
-Continue dual antiplatelet therapy for at least 6 months, aspirin indefinitely
-Continue aspirin 81 mg daily. Will add Plavix for ideally 6 months postevent
-Total cholesterol 260, LDL 187, HDL 53, triglycerides 102. Atorvastatin 80 mg initiated [GI consulted and would Appreciate their opinion regarding statin with history of cirrhosis; LFTs on admission normal]
-Mildly reduced LV systolic function and dilated hypokinetic right ventricle. Surveillance outpatient echocardiograms will be arranged as an outpatient
-Prehospitalization he had been on Lasix 80 mg daily and Aldactone 100 mg daily for fluid retention/ascites related to cirrhosis.
Alcoholic cirrhosis/hepatitis C with history of hepatic encephalopathy and ascites requiring paracentesis
- Coagulation profile within normal limits
- Hemoglobin, platelet count normal. LFTs within normal limits. Ammonia level normal.
-Patient had presented on high-dose Lasix 80 mg daily as well as Aldactone 100 mg daily which managed his chronic edema and ascites. Currently on Lasix 40 mg daily and spironolactone 25 mg daily with lactulose.
- Defer to GI for management
Post procedure activity restrictions and driving restrictions were reviewed with patient
PT evaluation
Repeat chest x-ray today to reassess pneumothorax post procedure
Possible discharge home today or within 24 hours
Outpatient cardiac follow-up to be arranged
Will sign off, recall if needed
Original Note:
Today's Communication / Plan
-
Repeat CXR today to assess PTX
Continue GDMT with Toprol, Aldactone, Lasix
Continue statin, ASA, Plavix
D/c home on Amiodarone 400 mg BID x 2 weeks then 400 mg daily x 2 weeks then 200 mg daily
No driving for at least 3 months post ICD implant
Outpatient cardiology follow up arranged
Impression / Plan
-
PCP: Dr. Cifuentes
Cardio: None prior to admission, initial consultation Dr. Wendi Milner
Impression:
Admitted with unstable wide-complex tachycardia, likely VT, at 170 bpm 06/24/24
s/p emergent cardioversion with 100 J 06/24/2024 in the ED
s/p DC Medtronic ICD 06/29/2024
Post cardioversion sinus arrest Requiring atropine
Sinus bradycardia
Chest pain
Abnormal EKG
Elevated troponin
Moderate CAD without culprit lesion
Possible history of prior atrial fibrillation
Hyponatremia
Hyperkalemia on outpatient Aldactone 100 mg daily
Alcoholic cirrhosis with history of hepatic encephalopathy
Prior history of therapeutic paracentesis, last 6 months ago
Hepatitis C, per GI consult found in [facility]
Anasarca/venous insufficiency/chronic lower extremity edema
History of hypertension
Prior alcoholic
Resident at [facility] 06/25/24: HEMODYNAMICS : (mmHg)
RA (m) : 22
RV (s/d,m) : 46/16, 21
PA (s/d, m) : 47/27, 34
PCWP (m) : 25
PA saturation: 68.7% on room air
AO saturation: 90.8% on room air
RA saturation: 67.4% on room air
Cardiac Output : 5.8 L/min by Kati calculation
Cardiac Index : 2.67 L/min/m-2 by Kati calculation
Systemic vascular resistance: 874 dsc^(-5) on 6 mcg of Levophed
Pulmonary vascular resistance: 1.80 luna unit
AO (s/d) : 105/74, mean of 86
LVEDP : 25
No significant gradient across the aortic valve to suggest aortic stenosis.
[facility] 06/25/24: Dominance: Right. Left Main): patent. LAD: Mid LAD 40 to 50% stenosis just distal to D2 takeoff with ESTEFANI-3 flow into the distal vessel. D2 is a small caliber vessel with 2 serial 50 to 60% stenoses with ESTEFANI-3 flow into the distal
portion. LCx: patent with LI. RCA: Distal smooth 60 to 70% stenosis but with ESTEFANI-3 flow into the distal vessels. No intervention performed.
Cardiac Output : 5.8 L/min by Kati calculation; Cardiac Index : 2.67 L/min/m-2 by Kati calculation; Systemic vascular resistance: 874 dsc^(-5) on 6 mcg of Levophed. Pulmonary vascular resistance: 1.80 luna unit
Echo 06/25/24: done in the ED following cardioversion for unstable wide-complex tachycardia 06/24/2024: Normal left ventricular size. Mildly reduced left ventricular systolic function estimated by Patel's biplane method 48%. Mild basal inferior
and basal�mid inferolateral hypokinesis. Enlarged right ventricle with mildly reduced RV systolic function. Biatrial dilatation. Trace mitral regurgitation. Mild tricuspid regurgitation. Minimal aortic sclerosis. Estimated pulmonary artery
pressure 20 mmHg. No pericardial effusion.
Plan:
-Patient with unstable WCT on admission and had emergent CV in the ER 06/24/24. EP reviewed ECG and it was likely VT.
-S/p ICD DC Medtronic ICD 06/29/2024. Incision looks clean/dry/intact. Remove pressure dressing later today
-CXR same day as ICD (06/29/24) with small left apical pneumothorax. Repeat ECG ordered for 06/30/24
-ECG AV paced rhythm.
- Reviewed with electrophysiology. Patient cannot drive for 3 months post ICD.
-Amiodarone gtt initially and started on amiodarone 400 mg TID 06/28/24. Continue TID dosing during admission then transition to 400 mg BID x 2 weeks the 400 mg daily for an additional 2 weeks then once daily at d/c.
-Outpatient dose of nadolol changed to Toprol XL 12.5 mg daily, but doses have been held for bradycardia (not s/p ICD) and hypotension (ongoing)
-Initially required Levophed for cardiogenic shock, but now weaned and tolerating GDMT
-Chest pain on admission with peak troponin 1.64. Echo with WMA. 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 No intervention
performed.
-EF 48% by echo and mildly reduced LV systolic function and dilated hypokinetic right ventricle.
-Will manage as a NSTEMI with Toprol, high dose atorvastatin, Aldactone, aspirin and Plavix this admission.
-GDMT limited by hypotension. Consider YANIRA/ARB as BP as outpt
-LDL 187, new to atorvastatin 80 mg daily
-Weight is down 4-5 lbs since admission d/c on Lasix 40 mg PO daily
-Outpatient dose of spironolactone decreased to 25 mg daily during admission due to hypotension. Spironolactone was higher dose as an outpatient for fluid retention/ascites related to cirrhosis. BP still limiting uptitration
-Pt is scheduled knee replacement late July. Would prefer pt push back at 3 months given NSTEMI, VT and new ICD placement as he will not be able to push/pull or use leg arm repetitively for at least 4-6 weeks
Progress Note - Field Adjuster
Subjective
Date of Service: June 30, 2024
Patient seen and examined. Notes some incisional pain at ICD site.
Objective
Labs:
06/30/24 03:16
06/30/24 03:16
Labs
Hgb 13.8 g/dL (13.0-18.0) 06/30/24 03:16
Hct 40.0 % (39.0-52.0) 06/30/24 03:16
Plt Count 152 10^3/uL (130-400) 06/30/24 03:16
PT 14.0 Sec (11.4-14.6) 06/27/24 03:43
INR 1.03 06/27/24 03:43
APTT Cancelled 06/26/24 12:30
Sodium 135 mmol/L (135-145) 06/30/24 03:16
Potassium 4.5 mmol/L (3.5-5.1) 06/30/24 03:16
BUN 15 mg/dl (9-20) 06/30/24 03:16
Creatinine 0.6 mg/dL (0.7-1.3) L 06/30/24 03:16
Glucose 101 mg/dl (70-99) H 06/30/24 03:16
Vital Signs and I&O:
Vital Signs
Temp Pulse Resp BP Pulse Ox
98 F 60 20 111/77 97
06/30/24 06:44 06/30/24 06:45 06/30/24 06:44 06/30/24 06:46 06/30/24 06:45
Vital Signs
Temp Pulse Resp BP Pulse Ox
98 F 60 20 111/77 97
06/30/24 06:44 06/30/24 06:45 06/30/24 06:44 06/30/24 06:46 06/30/24 06:45
Intake & Output
06/28/24 06/29/24 06/30/24 07/01/24
06:59 06:59 06:59 06:59
Intake Total 1330 / 1330 480 / 480 720 / 720
Balance 1330 / 1330 480 / 480 720 / 720
Physical Exam
Physical Exam
GEN: No distress, awake, Ox3
HEENT: supple, anicteric, mmm
LUNGS: CTA, no wheezes/rales
CV: Reg, S1/S2, no murmur, rub or gallop
Chest: left ICD incision w/ Aquacel dressing C/D/I, no hematoma
ABD: soft, BS+, NT/ND
EXT: No edema bilaterally, Varicose veins Rt>Lt LE. No clubbing or cyanosis
NEURO: Gross non-focal
SKIN: No rash, warm, dry
[2024-06-30] MEDS: PROTONIX 40 MG PO (08:13)
[2024-06-30] MEDS: PLAVIX 75 MG PO (08:13)
[2024-06-30] MEDS: MUCINEX 600 MG PO (08:13)
[2024-06-30] MEDS: TOPROL XL 12.5 MG PO (08:14)
[2024-06-30] MEDS: FLOMAX 0.4 MG PO (08:14)
[2024-06-30] MEDS: PACERONE 400 MG PO ×2 (08:14→16:27)
[2024-06-30] MEDS: LASIX 40 MG PO (08:14)
[2024-06-30] MEDS: FOLVITE 1 MG PO (08:14)
[2024-06-30] MEDS: LOW STRENGTH ASPIRIN 81 MG PO (08:14)
[2024-06-30] MEDS: DUPHALAC/CHRONULAC 30 GRAMS PO (08:15)
[2024-06-30] MEDS: ALDACTONE 25 MG PO (08:15)
--- NOTE | 2024-06-30 09:48 | W.PN.HOSP.TC ---
Addendum entered and electronically signed by Saad Richter MD 06/30/24 14:33:
d/w Dr. Nazario and Annia - ok for dc with stable PTX as patient asymptomatic. Planned for repeat CXR in 7-10 days
Original Note:
Today's Communication/Plan
-
repeat CXR pending to evaluate PTX
follow cards recs for BB/Amio dosing
possible DC pending above
Assessment / Plan
Assessment / Plan
Assessment:
NSTEMI with shock state, noncardiogenic per Cardiology - unknown type of distributive shock
- s/p Cath 06/25: nonobstructive CAD
- continue ASA/Plavix x 6 months
- continue Statin
- s/p IV heparin
- Cards following
Parox Afib
Unstable wide-complex tachycardia at 170 bpm, VT versus SVT with aberrancy status post Emergent cardioversion with 100 J 06/24/2024 in the ED
- s/p Cardioversion followed by pause and sinus bradycardia requiring Atropine
- s/p Amio drip
- s/p ICD 06/29
- continue Metoprolol/Amiodarone
- [employer] form was completed for temporary license pause until patient can be seen in follow up and establish safety for resuming driving.
- follow DCA/EP cards outpatient
pneumothorax s/p ICD placement
- CXR: Although subtle, probable left apical pneumothorax, estimated volume of 15-20%.
- repeat CXR pending
Syncope with turning head
- Carotid US unremarkable
GERD - PPI
Reactive leukocytosis
- resolved
- cultures negative
Lactic acidosis (metabolic acidosis) in setting of shock
- resolved
Hyponatremia and Hyperkalemia
- improving with IVF
Hx of ETOH cirrhosis with history of hepatic encephalopathy
- GI following for optimization; OP GI f/u with [facility]
- continue diuretics
Insomnia
- Lorazepam, trazodone continued at bedtime
BPH
- Tamsulosin continued
DVT prophylaxis: SCDs
Code: Full
Anticipated Discharge: > 48 hours
Subjective/Interval History
-
Date of Service: June 30, 2024
s.p ICD with PTX on f/u CXR
resting comfortably, no CP or SOB
Objective Data
-
Labs:
Laboratory Results
06/30/24
03:16
WBC 6.3
Hgb 13.8
Hct 40.0
Plt Count 152
Sodium 135
Potassium 4.5
Chloride 106
Carbon Dioxide 26
BUN 15
Creatinine 0.6 L
Glucose 101 H
Calcium 8.7
Total Bilirubin 0.8
AST 34
ALT 21
Alkaline Phosphatase 84
Vital Signs:
Vital Signs
Temp Pulse Resp BP Pulse Ox
98 F 64 20 111/77 98
06/30/24 06:44 06/30/24 08:14 06/30/24 06:44 06/30/24 08:15 06/30/24 08:07
I&O
06/29/24 06/30/24 07/01/24
06:59 06:59 06:59
Intake Total 480 / 480 720 / 720
Balance 480 / 480 720 / 720
Physical Exam
-
General: No Apparent Distress
HEENT: Normocephalic and Atraumatic
Respiratory: Negative Wheezes
Cardiac: Regular Rhythm and S1/S2
GI: Soft
Genito-urinary: No Costovertebral Tender
Neuro: AO x 3
Psych: Calm
Data Reviewed
-
Total Time Spent with Patient (in minutes): 42
Labs: Labs Reviewed by me
--- NOTE | 2024-06-30 13:30 | CM ---
Addendum entered by MANUELA Goldstein 06/30/24 15:58:
Plan to DC today
Met w/ patient to discuss at length. He is agreeable.
Will need ambulance transport based on therapy notes and assist w/ transfer.
Pt. aware/ agreeable.
Original Note:
CM following for DC planning needs.
Plan is for pt. to return to [facility] once medically stable for DC.
Bed is available for patient to return, however, elevator is not working properly in the building and patient cannot ascend stairs per PT. Awaiting confirmation that this is fixed.
Obtained authorization from [facility] for skilled time for therapy as patient does not appear at functional baseline. Auth# [id number] for x7 days skilled. Auth provided to Marleny/ liaison.
Plan- return to [facility] rehabilitation
--- NOTE | 2024-06-30 14:19 | W.PN.ANS.POP ---
Anesthesia Post Operative
- Anesthesia Post Op Note
Vital Signs Stable-See Nursing Note: Yes
Airway Patent: Yes
Adequate Pain Control: Yes
Change in Mental Status: No
Current Postoperative Nausea & Vomiting: No
Anesthesia Complications: No
General Anesthetic Recall: No
Unplanned Admission: No
Post Op Hydration Adequate: Yes
- -
Pt OOB to chair at time of post op visit. No anesthesia complications noted.
--- NOTE | 2024-06-30 14:31 | W.DS.TRANS ---
DC Summary - Acquisition Cost Estimator
-
Discharge Instructions:
Sleep Apnea Risk Intermediate
Discharge Diagnosis/Procedures NSTEMI, shock, Wide complex tachycardia (Vtach),
ICD implant (06/29). Pneumothorax post-ICD
Diet Low Cholesterol
Activity As tolerated
Driving Restrictions No driving for 3 weeks
Bathing Restrictions OK to Shower
Others Tests follow up with known GI for pancreatic cyst on
US
Repeat CXR in 7-10 days
Instructions:
Stand-Alone Forms: DC Inst - Implanted Device
Changes to Home Medications: No
Discharge Medications:
DC Medications w/original date entered in [facility]
acetaminophen 325 mg tablet 650 mg PO Q6H PRN mild pain, temp>100.4 06/24/24
acetaminophen 500 mg tablet 1,000 mg PO Q6H PRN mod pain 06/24/24
acetaminophen 650 mg rectal suppository 650 mg AR Q4H PRN temp>100 06/24/24
bisacodyl 10 mg rectal suppository 10 mg AR DAILYPRN PRN if no results from MOM 06/24/24
folic acid 1 mg tablet 1 mg PO DAILY Supplement 06/24/24
magnesium hydroxide 400 mg/5 mL oral suspension (Milk of Magnesia) 30 ml PO HSPRN PRN if no bm in 3 days 06/24/24
pantoprazole 40 mg tablet,delayed release 40 mg PO DAILY GERD 06/24/24
sodium phosphates 19 gram-7 gram/118 mL enema (Fleet Enema) 118 ml AR DAILYPRN PRN if no results after bisacodyl 06/24/24
tamsulosin 0.4 mg capsule 0.4 mg PO DAILY Urinary Issue 06/24/24
trazodone 50 mg tablet 50 mg PO DAILY Mental Health/Anxiety 06/24/24
amiodarone 200 mg tablet 400 mg (2 x 200 mg) PO DIRECTED #30 tabs 06/30/24
aspirin 81 mg chewable tablet 81 mg PO DAILY #30 tabs 06/30/24
atorvastatin 80 mg tablet 80 mg PO QPM #30 tabs 06/30/24
clopidogrel 75 mg tablet 75 mg PO DAILY #30 tabs 06/30/24
furosemide 40 mg tablet 40 mg PO DAILY #30 tabs 06/30/24
lactulose 10 gram/15 mL oral solution 45 ml PO DAILY Constipation #0 mL 06/30/24
lorazepam 0.5 mg tablet 0.5 mg PO HS Mental Health/Anxiety #5 tabs 06/30/24
metoprolol succinate 25 mg tablet,extended release 24 hr 12.5 mg (1/2 x 25 mg) PO DAILY #30 tabs 06/30/24
spironolactone 25 mg tablet 25 mg PO DAILY #30 tabs 06/30/24
Home Medication Changes
Pending Results: No
Total time spent discharging patient (in min): 41
[2024-06-30] MEDS: PREVNAR 20 0.5 ML IM (16:25)
[2024-06-30] MEDS: LIPITOR 80 MG PO (16:27)
--- NOTE | 2024-06-30 19:45 | PTCARENOTE ---
Pt seen by and Corinne Reece, ROWDY. Report called to Lizett at [facility]. Discharge instructions reviewed with pt regarding activity and driving restrictions, wound care, medications and their importance, reporting cares and concerns and
follow up appt's. Fair understanding verbalized. Pt transported via ambulance to [facility] with all documentation.
== END 2024-06-30 19:30 | DRG 275 ==
LOC: IVU 19:18
PROVIDERS: Internal Medicine Cardiovascular Disease; Internal Medicine Interventional Cardiology; Nurse Practitioner Adult Health; Nurse Practitioner Family; Registered Nurse; ADMITTING PHYSICIAN Hospitalist; ATTENDING PHYSICIAN Internal Medicine; CONSULT PHYSICIAN Internal Medicine Cardiovascular Disease; CONSULT PHYSICIAN Internal Medicine Critical Care Medicine; CONSULT PHYSICIAN Internal Medicine Gastroenterology; EMERGENCY PHYSICIAN Student in an Organized Health Care Education/Training Program; FAMILY PHYSICIAN Internal Medicine
PROC: 5A2204Z Restoration of Cardiac Rhythm, Single (ICD-10-PCS; 2024-06-24)
PROC: 4A023N8 Measurement of Cardiac Sampling and Pressure, Bilateral, Percutaneous Approach (ICD-10-PCS; 2024-06-25)
PROC: B2111ZZ Fluoroscopy of Multiple Coronary Arteries using Low Osmolar Contrast (ICD-10-PCS; 2024-06-25)
PROC: B2151ZZ Fluoroscopy of Left Heart using Low Osmolar Contrast (ICD-10-PCS; 2024-06-25)
PROC: 02HK3KZ Insertion of Defibrillator Lead into Right Ventricle, Percutaneous Approach (ICD-10-PCS; 2024-06-29)
PROC: 0JH608Z Insertion of Defibrillator Generator into Chest Subcutaneous Tissue and Fascia, Open Approach (ICD-10-PCS; 2024-06-29)
PROC: 02H63KZ Insertion of Defibrillator Lead into Right Atrium, Percutaneous Approach (ICD-10-PCS; 2024-06-29)
PROC: 3E0234Z Introduction of Serum, Toxoid and Vaccine into Muscle, Percutaneous Approach (ICD-10-PCS; 2024-06-30)
DX: I21.4 Non-ST elevation (NSTEMI) myocardial infarction (principal); R57.0 Cardiogenic shock; E87.1 Hypo-osmolality and hyponatremia; E87.20 Acidosis, unspecified; I47.29 Other ventricular tachycardia; J95.811 Postprocedural pneumothorax; I42.9 Cardiomyopathy, unspecified; I50.1 Left ventricular failure, unspecified; F32.A Depression, unspecified; K70.31 Alcoholic cirrhosis of liver with ascites; K21.9 Gastro-esophageal reflux disease without esophagitis; N40.1 Benign prostatic hyperplasia with lower urinary tract symptoms; I48.0 Paroxysmal atrial fibrillation; E87.5 Hyperkalemia; G47.00 Insomnia, unspecified; B19.20 Unspecified viral hepatitis C without hepatic coma; I87.2 Venous insufficiency (chronic) (peripheral); I25.10 Atherosclerotic heart disease of native coronary artery without angina pectoris; E78.00 Pure hypercholesterolemia, unspecified; M06.9 Rheumatoid arthritis, unspecified; Y83.8 Other surgical procedures as the cause of abnormal reaction of the patient, or of later complication, without mention of misadventure at the time of the procedure; R00.1 Bradycardia, unspecified; F10.10 Alcohol abuse, uncomplicated; I11.0 Hypertensive heart disease with heart failure; Z23 Encounter for immunization; Z79.899 Other long term (current) drug therapy; Z87.891 Personal history of nicotine dependence
CPT/HCPCS: 33249; 71045; 71046; 76700; 80048; 80053; 80061; 81003; 81015; 82105; 82140; 82248; 82805; 82962; 83605; 83735; 83880; 84100; 84443; 84484; 85025; 85027; 85610; 85730; 87040; 87070; 87086; 90677; 92960; 93005; 93306; 93460; 93880; 93975; 96365; 96366; 96375; 97116; 97163; 97166; 97535; 99152; 99153; 99291; C1721; C1769; C1777; C1892; C1894; C1898; G0009; Q9967

== ENCOUNTER → 2025-01-03 12:09 | Outpatient (REF) | payer OTHER, SELFPAY | LOC: RCS 12:09 | PROVIDERS: ATTENDING PHYSICIAN Nurse Practitioner; FAMILY PHYSICIAN Nurse Practitioner Family | DX: I47.20 Ventricular tachycardia, unspecified (principal); I50.22 Chronic systolic (congestive) heart failure | CPT/HCPCS: 93306 ==

== ENCOUNTER 2025-01-27 19:27 | Observation (INO) | payer OTHER, SELFPAY ==
[2025-01-27] VITALS (34 sets, daily range): BP systolic 75–126; BP diastolic 59–88; BMI 26.0; BMI 25.7
--- NOTE | 2025-01-27 15:23 | ED.GENMED ---
History of Present Illness
General
Chief Complaint: Heart Rate Problem
Time Seen by Provider: 01/27/25 15:14
Nursing documentation reviewed up to this point in time: agreed with
History of Present Illness
History of Present Illness:
69-year-old male presents to the ER from his long-term care facility for evaluation of elevated heart rate. Patient denies any chest pain or shortness of breath. [facility] staff noted him to have a high heart rate earlier today. On recheck it
was continued with elevated rate prompting referral to the ER. Patient denies chest pain. 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 He denies any device interventions today. He states he has been eating and drink without
difficulty.
Past History
Past History
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
ED Past Surgical History: Tonsilectomy (and adenoids)
Social History
Tobacco: Former smoker
Alcohol: Former
Personal:
Living: halfway ([facility])
Review of Systems
Review of Systems
Allergies reviewed?: Yes
Phy Exam
Physical Exam
Physical Exam:
Patient is awake, alert, appears older than stated age in no acute distress, head is NCAT, PERRL, EOMI mucous membranes moist, conjunctiva pink, heart regular tachycardic rate and rhythm without murmurs or ectopy, lungs are clear to auscultation
without wheezes rales or rhonchi, no JVD, abdomen is soft and nontender on palpation, extremities without edema, GCS is 15
Course
Orders/Labs/Results
Orders:
Orders
01/27/25 15:22
Electrocardiogram (*1) Stat
Reason for Study: Other
Other Reason for Exam: chest pain
EKG- Treatment ONCE
IV Insert/Care/Rem.- Treatment PRN
Interrogate Pacemaker- Treatment ONCE
Pulse Ox/cont/shift [RESP] Stat
Quantity: 1
01/27/25 15:23
CR Chest Portable - 1 View Urgent
Comment:
Reason For Exam: arrythmia
Reason Study Needs to be Portable: Patient Unstable
01/27/25 15:26
Complete Blood Count/With Diff Urgent
Comprehensive Metabolic Panel Urgent
Magnesium Urgent
NT-proBNP Urgent
PTT Urgent
Prothrombin Time Urgent
Troponin I Urgent
01/27/25 15:58
0.9% Sodium Chloride 250 ml [Nss] 250 ml IV BOLUS
01/27/25 16:36
Adenosine [Adenocard] 6 mg IV NOW STA
01/27/25 17:44
Adenosine [Adenocard] 12 mg .ROUTE .STK-MED ONE
01/27/25 17:50
COVID-19 Antigen Urgent
Source: Nasal Swab
Urinalysis Reflex To Culture Urgent
Date Specimen was Collected: 01/27/25
Time Specimen was Collected: 17:13
Urine Microscopic Reflex Cult Urgent
Influenza A+B Rapid Molecular Urgent
ZEUS Source: Nasal Swab
Specimen Description:
01/27/25 17:51
Adenosine [Adenocard] 12 mg IV NOW STA
01/27/25 18:01
ASA Classification Routine
Propofol [Diprivan] 50 mg IV NOW STA
01/27/25 18:48
Electrocardiogram (*1) Urgent
Reason for Study: Palpitations
EKG- Treatment ONCE
0.9% Sodium Chloride 250 ml [Nss] 250 ml IV BOLUS
01/27/25 19:00
Admit/Transfer Patient As Directed
Co-Sign Provider:
Level of Care: Observation services
Assign to:: Telemetry
Physician / Group: Marcos
Diagnosis: SVT s/p cardioversion
Reason for Telemetry: Medication for Arrhythmia
Date to Stop Telemetry: 01/29/25
Time to Stop Telemetry: 11:00
PRN Pain Medication Management As Directed
May give lesser potent ordered pain med per pt: Yes
preference::
Protocol:: Medication orders for pain may be administered in a
manner that supports deferring to patient preference
when the pt is:
- Requesting an ordered lesser potent pain medication.
Least to most potent pain medications are defined
as: acetaminophen < NSAID < tramadol < opioids
(morphine, oxycodone, hydromorphone).
- Requesting a lesser dose of the same medication IF
ORDERED.
- Requesting a less intrusive route of administration
if both routes are prescribed by the provider (PO <
IV).
01/27/25 19:03
Code Status As Directed
Resuscitation Status: Full Code
01/29/25 11:00
DC Protocol for Telemetry ONCE
Abnormal Lab Results
01/27/25 01/27/25
15:26 17:50
MCH 31.1 H pg
(27.0-31.0)
Absolute Lymphs (auto) 1.1 L 10^3/uL
(1.2-3.4)
Absolute Monos (auto) 1.1 H 10^3/uL
(0.1-0.6)
Lymphocytes % 14.8 L %
(20.5-51.1)
Monocytes % 14.6 H %
(1.7-9.3)
PT 15.0 H Sec
(11.4-14.6)
Sodium 133 L mmol/L
(135-145)
Potassium 3.4 L mmol/L
(3.5-5.1)
Carbon Dioxide 21 L mmol/L
(22-30)
BUN 28 H mg/dl
(9-20)
Calcium 8.1 L mg/dl
(8.4-10.2)
Total Protein 6.0 L g/dl
(6.3-8.2)
Urine Bacteria (Reflex) Few A
(Negative)
Urine Albumin (Reflex) 1+ A
(Neg - Trace)
01/27/25 15:26
01/27/25 15:26
Vital Signs
Initial and Last Documented VS:
Initial Vital Signs
Temp Pulse Resp BP Pulse Ox
98.3 F 128 18 110/88 97
01/27/25 15:13 01/27/25 15:13 01/27/25 15:13 01/27/25 15:13 01/27/25 15:13
Last Documented Vital Signs
Temp Pulse Resp BP Pulse Ox
97.1 F 69 16 94/70 100
01/27/25 18:38 01/27/25 19:18 01/27/25 19:18 01/27/25 19:18 01/27/25 19:18
Procedures
Cardioversion
Indication:: SVT
Performed by:: Leora Alvarez
Synchronized?: Yes
Energy Used: Other (100)
Number of attempts: 1
Successful?: Yes
ASA Risk Score: Class III
Any reaction or bad outcome to prior sedation/anesthesia?: No history of a reaction
Sedation level to be attained: moderate
Chart and allergies reviewed: Yes
Patient reassessed prior to sedation: Yes
Time out completed at (validating right patient & procedure): 18:36
History of difficult intubation: No
Airway free of obstruction: Yes
Patient has a gag reflex: Yes
Patient is able to open mouth: Yes
Patient has no dentures: Yes
Patient has no loose teeth: Yes
Medication administered by Provider during Moderate Sedation: IV Propofol (mg)
Total dose administered: 40
Time drug administered: 18:38
Start Time: 18:38
Stop Time: 18:49
MDM/Problems Addressed
Differential Diagnosis Includes:
Differential diagnosis to consider but not limited to electrolyte dyscrasia, decompensated heart failure, arrhythmia, occult infection along with other etiologies considered
Chronic conditions affecting care:
Cognitive communication deficit, A-fib, hypertension, previous ACS, V. tach, cirrhosis
*Radiology
Radiology exam reviewed: preliminary read by ED provider (I independently viewed interpreted portable chest x-ray showing no infiltrate, pacer intact)
*Pulse Oximetry
SaO2: 97
Oxygen Mode of Delivery: Room air
Patient hypoxic: no
*EKG
Interpreted by ED Provider?: Yes (I dependently interpreted twelve-lead EKG showing wide-complex tachycardia, rate 128, nonspecific intraventricular conduction delay, leftward axis, this is an abnormal tracing with increased rate compared to prior
EKG which showed patient to be in a paced rhythm at 60)
*[employer] Interpretation
Rate: tachycardiac (I independently viewed and interpreted rhythm strip showing wide-complex tachycardia)
*Critical Care Note
Total Time (30-74mins, 75-104mins- exclusive of procedures): see note
comment:
Critical care statement: A total of 40 minutes of critical care time was provided for this patient. This includes management of unstable vital signs, evaluation of the patient at bedside, reviewing the patient's pertinent medical records, discussion
with consultants, review of old EKGs and review of pertinent medical records. This time with separate from time utilized to perform the aforementioned documented procedures
Update Note
Update Note:
Patient is asymptomatic. I have reached out to on-call manpower development manager covering for patient's group. Await response. He is already on amiodarone, would consider adding additional/alternative antiarrhythmic. Awaiting device interrogation. Screening
labs and electrolytes ordered.
I did speak with nurse at his long-term care facility, [facility]. She reports that he had diarrhea last week and they have been holding his lactulose (has a h/o chronic liver disease). He did receive all of his routine medications this morning
including his metoprolol and amiodarone. He does chronically have hypotension-his blood pressure this morning was 101/80 which they report to be his typical blood pressure. His heart rate was in the 140s every time they checked it today. He did
have a brief episode of dizziness which resolved spontaneously.
1558: Lungs are clear, no evidence for CHF. Given history of diarrhea, will give small IV fluid bolus while awaiting interrogation report and labs.
1745: Cardioversion attempted with both 6 mg and 12 mg of adenosine-patient did not even have a pause and his heart rate of 130. I discussed with patient need for conscious sedation and electrical cardioversion. Patient agrees with plan at current.
1849: Patient tolerated procedure well. Blood pressure before procedure was 110 systolic. After administration of propofol, blood pressure was 75. Patient is now awake and alert. Additional IV fluid bolus ordered. Patient now in paced rhythm,
rate 60. I reviewed full patient presentation with the hospitalist for overnight observation.
ED Attending Note
-
Portions of this chart may have been created with voice recognition software.� Occasional wrong word or��sound alike� substitutions may have occurred due to the inherent limitations of voice recognition software.
Discharge Plan
Departure
Patient Disposition: Admit
Date of Disposition: 01/27/25
Time of Disposition: 20:08
Presentation/result/management discussed w/ accepting MD/DO: Hospitalist
Discharge Problem:
Arrhythmia
Interventions
Interventions:
*General Assessment Last Done: 01/27/25 15:13
*Neglect/Abuse Screening Last Done: 01/27/25 15:13
*ED COVID-19 Vaccine History Last Done: 01/27/25 15:13
*ED Influenza Vaccine History Last Done: 01/27/25 15:13
[facility] Fall Risk Assessment Tool Last Done: 01/27/25 15:12
*Risk Screen - Suicide (C-SSRS) Last Done: 01/27/25 15:13
ED- Cardiac Assessment Last Done: 01/27/25 17:35
ED- Pulmonary Assessment Last Done: 01/27/25 17:35
[2025-01-27 15:43] LABS: Hematocrit 46.5 % (39.0-52.0); Hemoglobin 16.0 g/dL (13.0-18.0); Mean Corp Hgb Conc. 34.4 g/dL (33.0-37.0); Mean Corpuscular Volume 90.5 fL (80.0-94.0); Nucleated Red Blood Cells % 0 % (-); Platelet Count 165 10^3/uL (130-400); Red Cell Dist. Width 13.3 % (11.5-14.5)
[2025-01-27 15:48] LABS: INR 1.17; PT 15.0 Sec (11.4-14.6)
[2025-01-27 15:49] LABS: APTT 24.8 Sec (23.4-35.0)
[2025-01-27 16:06] LABS: ALT (SGPT) 37 U/L (0-50); AST (SGOT) 44 U/L (17-59); Albumin 3.5 g/dl (3.5-5.0); Alkaline Phosphatase 77 U/L (38-126); Blood Urea Nitrogen 28 mg/dl (9-20); Calcium 8.1 mg/dl (8.4-10.2); Carbon Dioxide 21 mmol/L (22-30); Chloride 103 mmol/L (98-107); Estimated Creatinine Clearance 88 ml/min; Glucose 99 mg/dl (70-99); Magnesium 2.0 mg/dl (1.6-2.3); Potassium 3.4 mmol/L (3.5-5.1); Sodium 133 mmol/L (135-145); Total Protein 6.0 g/dl (6.3-8.2); eGFR > 60.00
[2025-01-27 16:17] LABS: Troponin I 0.033 ng/ml
[2025-01-27] MEDS: NSS 250 IV ×2 (16:18→18:35)
[2025-01-27] MEDS: ADENOCARD 6 MG IV (17:40)
[2025-01-27] MEDS: ADENOCARD 12 MG IV (17:45)
[2025-01-27 18:16] LABS: Urine Character Clear (Clear)
[2025-01-27 18:22] LABS: COVID-19 Antigen Negative (Negative)
[2025-01-27 18:26] LABS: Urine Squamous Cell 0-2 /LPF (Few)
[2025-01-27 18:27] LABS: Urine Red Blood Cell 0-2 /HPF (0-2); Urine White Cell 0-2 /HPF (0-5)
--- NOTE | 2025-01-27 18:53 | HPS.HSE ---
Family Physician
-
Family Physician: Kwadwo Jewell MD
Chief Complaint
-
Tachycardia
History of Present Illness
This is a 69-year-old with past medical history significant for liver cirrhosis, CAD status post NSTEMI, history of proximal atrial fibrillation, recent history of NSTEMI status post cath showing nonobstructive disease CAD, afebrile with unstable
wide-complex tachycardia as well as VT status post cardioversion complicated by bradycardia and ultimately requiring pacemaker-ICD placement, currently on dual antiplatelet therapy who presents to the emergency department with irregular tachycardia.
[facility] where he was found to have elevated heart rate during the day. He had a persistent elevated heart rate which prompted referral to the emergency department. Patient had no symptoms including chest pain shortness
of breath dyspnea on exertion palpitations lightheadedness or dizziness. He denies any fevers or chills. He denies any abdominal discomfort. He denies any diarrhea. He denies any melena or hematochezia.
In the emergency department patient was found to be tachycardic and supraventricular rhythm. He was initially treated with adenosine no improvement. Patient ultimately underwent cardioversion and was referred to observation by the emergency
department.
After cardioversion his current vital signs showed blood pressure that was low at 75/59, pulse rate was 61 paced, oxygen saturation of 97%. Was afebrile. ECG shows a paced rhythm at a rate of 64. Chest x-ray was clear.
CBC was unremarkable, electrolytes BUN/creatinine were all in normal range. Troponin was negative. BNP was elevated at 8000.
Medical History
Past Medical History
Past Medical History: Reports Other
Additional Past Medical History:
Depression, hypertension, alcoholic cirrhosis of liver with ascites anxiety, GERD, BPH, paroxysmal A-fib
Past Surgical History: Reports Other
Additional Past Surgical History:
Tonsillectomy and adenoidectomy
Social History
Tobacco: Non-smoker
Alcohol: Former
Drug: None
Living: Alf
Family History
Family History: Not pertinent
Allergies / Home Medications
Allergies reflects when Allergies were last updated in [facility].
Home Medications with original date entered in [employer]
Allergy/Medication List:
Allergies
Allergy/AdvReac Type Severity Reaction Status Date / Time
No Known Allergies Allergy Unverified 08/24/23 10:36
Home Medications
acetaminophen 325 mg tablet 650 mg PO Q6H PRN mild pain, temp>100.4 06/24/24
acetaminophen 500 mg tablet 1,000 mg PO Q6H PRN mod pain 06/24/24
acetaminophen 650 mg rectal suppository 650 mg TX Q4H PRN temp>100 06/24/24
bisacodyl 10 mg rectal suppository 10 mg TX DAILYPRN PRN if no results from MOM 06/24/24
folic acid 1 mg tablet 1 mg PO DAILY 06/24/24
furosemide 80 mg tablet 80 mg PO DAILY 06/24/24
lactulose 10 gram/15 mL oral solution 45 ml PO DAILY 06/24/24
lorazepam 0.5 mg tablet 0.5 mg PO HS 06/24/24
magnesium hydroxide 400 mg/5 mL oral suspension (Milk of Magnesia) 30 ml PO HSPRN PRN if no bm in 3 days 06/24/24
nadolol 20 mg tablet 20 mg PO DAILY 06/24/24
pantoprazole 40 mg tablet,delayed release 40 mg PO DAILY 06/24/24
sodium phosphates 19 gram-7 gram/118 mL enema (Fleet Enema) 118 ml [place] DAILYPRN PRN if no results after bisacodyl 06/24/24
spironolactone 100 mg tablet 100 mg PO DAILY 06/24/24
tamsulosin 0.4 mg capsule 0.4 mg PO DAILY 06/24/24
trazodone 50 mg tablet 50 mg PO DAILY 06/24/24
Review of Systems
-
Constitutional: Reports No Symptoms
EENT: Reports No Symptoms
Respiratory: Reports No Symptoms
Cardiac: Reports No Symptoms
Abdomen/GI: Reports No Symptoms
: Reports No Symptoms
Musculoskeletal: Reports No Symptoms
Skin: Reports No Symptoms
Neurological: Reports No Symptoms
Endocrine: Reports No Symptoms
Hematologic/Lymphatic: Reports No Symptoms
Psych: Reports No Symptoms
Physical Exam
Vital Signs
Vital Signs
Temp Pulse Resp BP Pulse Ox
97.1 F 60 14 83/63 96
01/27/25 18:38 01/27/25 18:48 01/27/25 18:48 01/27/25 18:48 01/27/25 18:48
Physical Exam
General: Well Developed, Well Nourished and No Apparent Distress
HEENT: NormoCephalic, Moist mucous membranes and Atraumatic
Respiratory: Clear
Cardiac: S1/S2 and Regular Rhythm; No Murmur or Rub
GI: Soft, Non Tender, Non Distended and Normal Bowel Sounds; No Organomegaly
Rectal: Deferred by Provider
Musculoskeletal: No Clubbing, No Cyanosis and No Edema
Skin: No Rash
Neuro: AO x 3 and Nonfocal/grossly intact
Psych: Calm
Laboratory Results
-
01/27/25 15:26
01/27/25 15:26
Laboratory Results
PT 15.0 Sec (11.4-14.6) H 01/27/25 15:26
INR 1.17 01/27/25 15:26
APTT 24.8 Sec (23.4-35.0) 01/27/25 15:26
Total Bilirubin 1.0 mg/dl (0.2-1.3) 01/27/25 15:26
AST 44 U/L (17-59) 01/27/25 15:26
ALT 37 U/L (0-50) 01/27/25 15:26
Alkaline Phosphatase 77 U/L (38-126) 01/27/25 15:26
Troponin I 0.033 ng/ml 01/27/25 15:26
Data Reviewed
-
Diagnostic Radiology: Image Personally Visualized and interpreted and Report Reviewed by me
Medical Tests (Nuc Med, Echo, EKG etc): Image Personally Visualized and interpreted
Lab Data: Labs Reviewed by me
Old Records: Reviewed
Impression/Plan
-
IMPRESSION:
69-year-old with past medical history significant for proximal atrial fibrillation status post cardioversion complicated by symptomatic bradycardia and now status post AICD pacemaker, liver cirrhosis, GERD, BPH presenting to the emergency department
with persistent tachycardia found to be in SVT and is now status post cardioversion in the emergency department with relatively low blood pressure after the procedure and referred to hospitalist for observation.
PLAN:
SVT status post cardioversion -patient with borderline low blood pressures but he does have cirrhosis and is still status post propofol, no signs of active infection and not particularly dehydrated.
� Admit to telemetry observation
� Continue on patient's metoprolol with hold parameters
� Continue patient's amiodarone 200 mg p.o. daily for now
� Hold parameters on diuretics.
� IV fluids as needed for hypotension
� Patient is not currently on anticoagulation
CAD�recent cardiac cath with nonobstructive CAD on dual antiplatelet therapy
� Continue aspirin Plavix and statin
Liver cirrhosis
� Continue patient's lactulose
� Continue furosemide and spironolactone with hold parameters
DVT prophylaxis�SCDs for now
CODE STATUS�full code
[2025-01-27] MEDS: KCL 40 MEQ PO (21:25)
[2025-01-27] MEDS: ATIVAN 0.5 MG PO (22:11)
[2025-01-27] MEDS: DESYREL 50 MG PO (22:29)
[2025-01-28] VITALS (8 sets, daily range): BP systolic 99–142; BP diastolic 68–97; BMI 25.6
--- NOTE | 2025-01-28 03:25 | PTCARENOTE ---
:Pt admitted from ED to room 1796, able to ambulate from stretcher to bed with stand by assist, steady gait. AAOx3, denies cp or SOB, admission questioner completed. Pt anxious, refusing to keep tele pack and compression sleeves on, educated
multiple times, agreed only on tele monitor. 100% Apaced on the monitor, HR controlled at 60-70's. Oriented pt to room and call light. POC ongoing.
[2025-01-28 06:38] LABS: Blood Urea Nitrogen 23 mg/dl (9-20); Calcium 8.0 mg/dl (8.4-10.2); Carbon Dioxide 23 mmol/L (22-30); Chloride 109 mmol/L (98-107); Estimated Creatinine Clearance 113 ml/min; Glucose 74 mg/dl (70-99); Potassium 3.6 mmol/L (3.5-5.1); Sodium 135 mmol/L (135-145); eGFR > 60.00
[2025-01-28] MEDS: FOLVITE 1 MG PO (08:32)
[2025-01-28] MEDS: LASIX 40 MG PO (08:32)
[2025-01-28] MEDS: PACERONE 200 MG PO (08:32)
[2025-01-28] MEDS: ALDACTONE 25 MG PO (08:33)
[2025-01-28] MEDS: PLAVIX 75 MG PO (08:33)
[2025-01-28] MEDS: TOPROL XL 12.5 MG PO (08:33)
[2025-01-28] MEDS: FLOMAX 0.4 MG PO (08:33)
[2025-01-28] MEDS: PROTONIX 40 MG PO (08:33)
[2025-01-28] MEDS: LOW STRENGTH ASPIRIN 81 MG PO (08:33)
[2025-01-28] MEDS: KCL 40 MEQ PO (08:40)
--- NOTE | 2025-01-28 10:13 | PTCARENOTE ---
Call placed to [facility] for medication list
--- NOTE | 2025-01-28 11:10 | W.PN.HOSP.TC ---
Today's Communication/Plan
-
replete KCL
check mag level
Cards input
monitor stool
await home med confirmation
Assessment / Plan
Assessment / Plan
General: Well Developed, Well Nourished and No Apparent Distress
HEENT: NormoCephalic, Moist mucous membranes and Atraumatic
Respiratory: Clear
Cardiac: S1/S2 and Regular Rhythm; No Murmur or Rub
GI: Soft, Non Tender, Non Distended and Normal Bowel Sounds; No Organomegaly
Rectal: Deferred by Provider
Musculoskeletal: No Clubbing, No Cyanosis and No Edema
Skin: No Rash
Neuro: AO x 3 and Nonfocal/grossly intact
Psych: Calm
69-year-old with past medical history significant for proximal atrial fibrillation status post cardioversion complicated by symptomatic bradycardia and now status post AICD pacemaker, liver cirrhosis, GERD, BPH presenting to the emergency department
with persistent tachycardia found to be in SVT and is now status post cardioversion in the emergency department with relatively low blood pressure after the procedure and referred to hospitalist for observation.
PLAN:
SVT status post cardioversion
� Continue on patient's metoprolol with hold parameters
� Continue patient's amiodarone 200 mg p.o. daily for now-need to confirm dosing. May need to adjust dosing.
� Hold parameters on diuretics.
� IV fluids as needed for hypotension
� Patient is not currently on anticoagulation
- Replete electrolytes aggresively. Additional 40meq of KCl added. Check mag level.
-cardiology eval
CAD�recent cardiac cath with nonobstructive CAD on dual antiplatelet therapy
� Continue aspirin Plavix and statin
Liver cirrhosis
� Continue patient's lactulose
� Continue furosemide and spironolactone with hold parameters
Recent Gastroenteritis
-diarrhea seems to have improved
DVT prophylaxis�SCDs for now
CODE STATUS�full code
Awaiting home med rec
Anticipated Discharge: 24 - 48 hours
Subjective/Interval History
-
Date of Service: January 28, 2025
states of loose stools at SNF
Objective Data
-
Labs:
Laboratory Results
01/28/25
05:34
Sodium 135
Potassium 3.6
Chloride 109 H
Carbon Dioxide 23
BUN 23 H
Creatinine 0.7
Glucose 74
Calcium 8.0 L
Vital Signs:
Vital Signs
Temp Pulse Resp BP Pulse Ox
97.9 F 60 20 108/69 97
01/28/25 07:23 01/28/25 08:32 01/28/25 07:23 01/28/25 08:32 01/28/25 07:23
I&O
01/27/25 01/28/25 01/29/25
06:59 06:59 06:59
Intake Total 240 / 240
Balance 240 / 240
--- NOTE | 2025-01-28 11:29 | PTCARENOTE ---
List of medication received from [facility] med rec updated
--- NOTE | 2025-01-28 11:43 | PTCARENOTE ---
Assumed care this morning. Patient AO x3, lives a [facility]. States a recent stomach virus, refusing lactose this morning, had diarrhea, now resolved. Formed stool this morning. NSR with 1st degree HB in the 60's. Eating and drinking well.
Walking in room, has knee pain, bandaid removed left knee, recent cortisone injection. Using call triana for assistance
[2025-01-28 12:47] LABS: Magnesium 2.0 mg/dl (1.6-2.3)
--- NOTE | 2025-01-28 15:45 | CON.CAR ---
Consultation
Consultation Request
Date/Time Consultation Requested: January 28, 2025
Date/Time Consultation Performed: January 28, 2025
Requesting Provider: Hospitalist
Performing Provider: Dr. Edinson De Santiago
Reason for Consultation: Tachycardia
Medical History
-
Chief Complaint: Rapid heart beating
History of Present Illness:
Patient was brought to the [facility] emergency department on January 27, 2025 from his long-term care facility for the finding of elevated heart rate.
He denied the sensation of rapid beating, palpitations. Denied dizziness near-syncope or syncope. He denied chest pain and he denied shortness of breath.
Evaluation in the emergency department found him to be in a white QRS complex tachycardia, difficult to discern if atrial tachycardia with rapid ventricular rate or ventricular tachycardia..
It is noted that adenosine failed to change his rhythm but I do not see electrocardiographic monitoring of the adenosine administration
Ultimately he was cardioverted to sinus rhythm with electrical cardioversion
Cardiology is consulted regarding further evaluation and management of his tachyarrhythmia.
He tells me he has been feeling short of breath for approximately 2 days but he did not necessarily feel a rapid heart beating sensation.
Past medical history:
Ventricular tachycardia
Medtronic dual-chamber ICD placed June 29, 2024
Coronary artery disease and prior non-ST segment elevation myocardial infarction
Heart failure with mildly reduced ejection fraction
Hepatic cirrhosis
Social History
Tobacco: Non-Smoker
Alcohol: Former
Drug: None
Living: Alf
Allergies / Home Medications
Allergy/AdvReac Type Severity Reaction Status Date / Time
No Known Allergies Allergy Verified 01/27/25 15:23
�Medication �Instructions �Recorded �Confirmed �Type
acetaminophen 325 mg tablet 650 mg PO Q6H PRN mild pain, 06/24/24 01/28/25 History
temp>100.4
acetaminophen 500 mg tablet 1,000 mg PO Q6H PRN mod pain 06/24/24 01/28/25 History
bisacodyl 10 mg rectal suppository 10 mg UT DAILYPRN PRN if no 06/24/24 01/28/25 History
results from [facility]
folic acid 1 mg tablet 1 mg PO DAILY Supplement 06/24/24 01/28/25 History
magnesium hydroxide 400 mg/5 mL 30 ml PO HSPRN PRN if no bm in 3 06/24/24 01/28/25 History
oral suspension (Milk of Magnesia) days
pantoprazole 40 mg tablet,delayed 40 mg PO DAILY GERD 06/24/24 01/28/25 History
release
sodium phosphates 19 gram-7 118 ml UT DAILYPRN PRN if no 06/24/24 01/28/25 History
gram/118 mL enema (Fleet Enema) results after bisacodyl
tamsulosin 0.4 mg capsule 0.4 mg PO HS Urinary Issue 06/24/24 01/28/25 History
trazodone 50 mg tablet 100 mg PO HS Mental Health/Anxiety 06/24/24 01/28/25 History
aspirin 81 mg chewable tablet 81 mg PO DAILY #30 tabs 06/30/24 01/28/25 Rx
atorvastatin 80 mg tablet 80 mg PO QPM #30 tabs 06/30/24 01/28/25 Rx
furosemide 40 mg tablet 40 mg PO DAILY #30 tabs 06/30/24 01/28/25 Rx
lactulose 10 gram/15 mL oral 45 ml PO DAILY Constipation #0 mL 06/30/24 01/28/25 Rx
solution
lorazepam 0.5 mg tablet 0.5 mg PO HS Mental Health/Anxiety 06/30/24 01/28/25 Rx
#5 tabs
metoprolol succinate 25 mg 12.5 mg (1/2 x 25 mg) PO DAILY #30 06/30/24 01/28/25 Rx
tablet,extended release 24 hr tabs
spironolactone 25 mg tablet 25 mg PO DAILY #30 tabs 06/30/24 01/28/25 Rx
amiodarone 200 mg tablet 200 mg PO DAILY 01/28/25 01/28/25 History
diclofenac sodium 1 % topical gel 4 g topical BID 01/28/25 01/28/25 History
guaifenesin 600 mg tablet, 1 mg PO 01/28/25 History
extended release 12 hr
Review of Systems
-
History Source: Patient
All other systems: Negative unless noted
Constitutional: No Symptoms
EENT: No Symptoms
Respiratory: Trouble Breathing
Cardiac: No Symptoms
Abdomen/GI: No Symptoms
: No Symptoms
Musculoskeletal: No Symptoms
Skin: No Symptoms
Neurological: No Symptoms
Endocrine: No Symptoms
Hematologic/Lymphatic: No Symptoms
Physical Exam
Vital Signs
Temp Pulse Resp BP Pulse Ox
98.7 F 62 20 129/81 97
01/28/25 14:36 01/28/25 12:00 01/28/25 14:36 01/28/25 11:30 01/28/25 14:36
Lab Results
01/27/25 15:26
01/28/25 05:34
Troponin I 0.033 ng/ml 01/27/25 15:26
Zjo-I-Yzrbshcfgyw Pept 8880 pg/ml 01/27/25 15:26
Physical Exam
General: Other (Chronically ill-appearing but no acute distress)
HEENT: Normocephalic, Anicteric and Moist Mucous Membranes
Respiratory: Clear and Non Labored Respirations
Cardiac: S1/S2 (Normal S1 and S2, no [id number] 1/6 apical holosystolic murmur no rubs. PMI is normally placed.)
Breast: Deferred by me
GI: Soft, Non Tender, Non Distended and Normal Bowel Sounds
Rectal: Deferred by Provider
Musculoskeletal: No Clubbing, No Cyanosis and No Edema
Skin: Warm and Dry
Neuro: Awake, Alert, Oriented and AO x 3
Psych: Calm
Impression / Plan
-
Assessment/plan
Atrial tachycardia with rapid ventricular rate requiring cardioversion in the emergency department on day of presentation
Heart failure with mildly reduced ejection fraction likely that persistence of atrial tachycardia with rapid ventricular rate played a role
History of ventricular tachycardia
Medtronic dual-chamber ICD placed June 29, 2024
Coronary artery disease and prior non-ST segment elevation myocardial infarction
Heart failure with mildly reduced ejection fraction
Alcoholic cirrhosis/hepatitis C with history of hepatic encephalopathy and ascites requiring paracentesis
[facility] 06/25/24: Dominance: Right. Left Main): patent. LAD: Mid LAD 40 to 50% stenosis just distal to D2 takeoff with ESTEFANI-3 flow into the distal vessel. D2 is a small caliber vessel with 2 serial 50 to 60% stenoses with ESTEFANI-3 flow into the distal
portion. LCx: patent with LI. RCA: Distal smooth 60 to 70% stenosis but with ESTEFANI-3 flow into the distal vessels. No intervention performed.
Cardiac Output : 5.8 L/min by Kati calculation; Cardiac Index : 2.67 L/min/m-2 by Kati calculation; Systemic vascular resistance: 874 dsc^(-5) on 6 mcg of Levophed. Pulmonary vascular resistance: 1.80 luna unit
Echo 06/25/24: done in the ED following cardioversion for unstable wide-complex tachycardia 06/24/2024: Normal left ventricular size. Mildly reduced left ventricular systolic function estimated by Patel's biplane method 48%. Mild basal inferior
and basal�mid inferolateral hypokinesis. Enlarged right ventricle with mildly reduced RV systolic function. Biatrial dilatation. Trace mitral regurgitation. Mild tricuspid regurgitation. Minimal aortic sclerosis. Estimated pulmonary artery
pressure 20 mmHg. No pericardial effusion.
Dual-chamber Medtronic ICD 06/29/2024
Tachyarrhythmia
Is likely that his presenting tachyarrhythmia was VT
I did a rapid interrogation of his device and his presenting rate of 140 bpm fell below VT detection and AT AF detection so this was not stored for review.
I have reprogrammed device parameters to allow for VT detection and therapy at 130 bpm and AF AT detection at 133 bpm this may help in the future better discern his arrhythmia
Given that he does have basal mid inferolateral scar on prior echocardiogram and given ECG appearance this could certainly be VT.
He has been maintained on amiodarone, given recurrent VT on amiodarone I would recommend eventual EP study and ablation targeting his VT but this does not need to be done urgently and he wishes to leave [facility]
Maintain current dose of amiodarone
As an outpatient we can consider EP study and ablation if patient ultimately becomes agreeable but right now his focus is on getting discharged from the hospital.
If he recurs with his ventricular tachyarrhythmia soon we can increase amiodarone dose
He has been short of breath with elevated proBNP on admission and no chest x-ray evidence of pulmonary edema
Likely some degree of heart failure exacerbation given his prolonged tachyarrhythmia and known heart failure with mildly reduced ejection fraction.
Do not suspect acute coronary syndrome given no symptoms to suggest this and troponin of only 0.033, no need for ischemic evaluation acutely this admission
Will give Lasix 40 mg IV as a one-time dose and then follow clinically. He has been on 40 mg p.o. daily as an outpatient
Primary special service officer is Dr. Wendi Milner
Total time spent today was 75 minutes in preparing to see the patient, seeing the patient and coordination of care. This included review of recent laboratory evaluations, cardiact testing, imaging studies, primary care rtecords, specialty
consultations, hospital records, as well as personally interviewing and examining the patient, which included discussion of their tests, review/ordering medications, and communicating with other healthcare professionals and also treatment planning
as well as counseling.
Total time does not include separately billed tests performed on this date of service.
Data Reviewed
-
EKG: Tracing Personally Visualized and interpreted
Radiology: Image Personally Visualized and interpreted
Medical Tests (Nuc Med, Echo etc): Report Reviewed by me
Labs: Labs Reviewed by me
Old Records: Reviewed
[2025-01-28] MEDS: LASIX 40 MG IV (18:06)
[2025-01-28] MEDS: LIPITOR 80 MG PO (18:07)
[2025-01-28] MEDS: DESYREL 50 MG PO (21:45)
[2025-01-28] MEDS: ATIVAN 0.5 MG PO (22:14)
[2025-01-28] MEDS: TYLENOL 650 MG PO (22:20)
--- NOTE | 2025-01-29 03:56 | PTCARENOTE ---
Tele monitor shows SB-SR and occasionally Apaced. HR in the 50-60's at rest. Pt ambulating self in room. Voiding in urinal. Reviewed POC with patient, call triana in reach.
[2025-01-29 04:14] VITALS: BP 100/70
[2025-01-29 04:23] VITALS: BMI 25.5
[2025-01-29 04:52] LABS: Hematocrit 40.1 % (39.0-52.0); Hemoglobin 13.9 g/dL (13.0-18.0); Mean Corp Hgb Conc. 34.7 g/dL (33.0-37.0); Mean Corpuscular Volume 89.5 fL (80.0-94.0); Nucleated Red Blood Cells % 0 % (-); Platelet Count 99 10^3/uL (130-400); Red Cell Dist. Width 13.1 % (11.5-14.5)
[2025-01-29 04:59] LABS: Blood Urea Nitrogen 21 mg/dl (9-20); Calcium 8.3 mg/dl (8.4-10.2); Carbon Dioxide 24 mmol/L (22-30); Chloride 103 mmol/L (98-107); Estimated Creatinine Clearance > 125 ml/min; Glucose 88 mg/dl (70-99); Magnesium 1.9 mg/dl (1.6-2.3); Potassium 3.9 mmol/L (3.5-5.1); Sodium 132 mmol/L (135-145); eGFR > 60.00
[2025-01-29 07:36] VITALS: BP 125/86
--- NOTE | 2025-01-29 08:00 | PTCARENOTE ---
Assumed care of pt from prev nsg shift; Pt AAOx3 w/no c/o CP or SOB. Pt's VSS w/HR in the 50's & BP 125/86 this AM. Pt is A-paced/SB w/1st deg AVB & BBB on telemetry monitoring. Plan of care discussed w/pt & pt w/no additional needs at this time.
Plan of care ongoing.
--- NOTE | 2025-01-29 08:05 | W.PN.CARDCBS ---
Addendum entered and electronically signed by Freddy Jimenez MD 01/29/25 09:29:
I saw and examined the patient.
The [facility]SA COORDINATOR or PA's note was reviewed and I agree with the note.
Comment: General: Well developed, well nourished in NAD.
Neck: Supple, no JVD, HJR, carotids +2 B/L, no bruits bilaterally.
Heart: Non displaced PMI, RRR, no murmurs, No S3, S4, no rubs.
Lungs: Clear to auscultation bilaterally, no wheeze, rhonchi, rubs bilaterally,
normal expiratory phase.
Extremities: No clubbing, cyanosis or edema bilaterally.
Neuro: Grossly nonfocal, awake, alert and oriented x3.
Stable cardiology status for discharge
No further VT
He is strongly urged to be compliant with follow-up and might need ablation for VT if recurs
Discussed with primary service
Original Note:
Today's Communication / Plan
-
Continue amiodarone 200mg daily, Toprol 12.5mg daily
Continue PO lasix 40mg daily, spironolactone 25mg daily
Follow up arranged
Impression / Plan
-
PCP: Dr. Cifuentes
College Counselor: None, initial consultation during prior admission Dr. Wendi Milner
Impression:
Presented w/ elevated HR
Wide-complex tachycardia, likely VT
s/p CV in ER to SR 01/28/2025
h/o VT
s/p DC Medtronic ICD 06/29/2024
Post cardioversion sinus arrest Requiring atropine
Sinus bradycardia
Chest pain
Abnormal EKG
Elevated troponin
Moderate CAD without culprit lesion
Possible history of prior atrial fibrillation
Hyponatremia
Hyperkalemia on outpatient Aldactone 100 mg daily
Alcoholic cirrhosis with history of hepatic encephalopathy
Prior history of therapeutic paracentesis, last 6 months ago
Hepatitis C, per GI consult found in [facility]
Anasarca/venous insufficiency/chronic lower extremity edema
History of hypertension
Prior alcoholic
Resident at [facility] 06/25/2024: Dominance: Right. Left Main): patent. LAD: Mid LAD 40 to 50% stenosis just distal to D2 takeoff with ESTEFANI-3 flow into the distal vessel. D2 is a small caliber vessel with 2 serial 50 to 60% stenoses with ESTEFANI-3 flow into the distal
portion. LCx: patent with LI. RCA: Distal smooth 60 to 70% stenosis but with ESTEFANI-3 flow into the distal vessels. No intervention performed.
Cardiac Output : 5.8 L/min by Kati calculation; Cardiac Index : 2.67 L/min/m-2 by Kati calculation; Systemic vascular resistance: 874 dsc^(-5) on 6 mcg of Levophed. Pulmonary vascular resistance: 1.80 luna unit
Echo 06/25/2024: EF 48%. Mild basal inferior and basal�mid inferolateral hypokinesis. Enlarged right ventricle with mildly reduced RV systolic function. Biatrial dilatation. Trace mitral regurgitation. Mild tricuspid regurgitation. Minimal
aortic sclerosis. Estimated pulmonary artery pressure 20 mmHg. No pericardial effusion.
Echo 01/03/2025: EF 40-45%, mild global hypokinesis, mild MR, trace AR, PAP 23 mmHg
Plan:
-Presented with elevated HR from nursing facility. In wide complex tachyarrhythmia, likely VT. Failed to convert w/ adenosine in ER, s/p CV in ER 01/27 to SR.
-Remains in SR on review of telemetry overnight. No further arrhythmias noted
-Presenting rate of 140 bpm was below VT and AT/AF detection on device. Reprogrammed device parameters on 01/28 to allow for VT detection and therapy at 130 bpm and AT/AF detection at 133 bpm.
-Continue amiodarone 200mg daily and Toprol 12.5mg daily. If recurrent VT noted, could increase amiodarone.
-Would benefit from eventual EP study and ablation to target his VT. Will discuss as OP.
-Has had some SOB noted. Chest xray without evidence of pulmonary edema, however proBNP was 8880 on admission.
-Given a single dose of IV lasix 01/28. Weight down 2lbs overnight to 192 lbs, down 5lbs this admission. Creat stable at 0.6.
-Continue PO lasix 40mg daily at discharge.
-Echo 12/2024 with EF 40-45%, No need to repeat. Continues on medical therapy with spironolactone and Toprol.
-Follow up arranged.
Progress Note - College Counselor
Subjective
Date of Service: January 29, 2025
Still w/ some LE edema, however reports this is somewhat chronic.
Objective
Labs:
01/29/25 04:22
01/29/25 04:22
Labs
Hgb 13.9 g/dL (13.0-18.0) 01/29/25 04:22
Hct 40.1 % (39.0-52.0) 01/29/25 04:22
Plt Count 99 10^3/uL (130-400) L D 01/29/25 04:22
PT 15.0 Sec (11.4-14.6) H 01/27/25 15:26
INR 1.17 01/27/25 15:26
APTT 24.8 Sec (23.4-35.0) 01/27/25 15:26
Sodium 132 mmol/L (135-145) L 01/29/25 04:22
Potassium 3.9 mmol/L (3.5-5.1) 01/29/25 04:22
BUN 21 mg/dl (9-20) H 01/29/25 04:22
Creatinine 0.6 mg/dL (0.7-1.3) L 01/29/25 04:22
Glucose 88 mg/dl (70-99) 01/29/25 04:22
Troponins
01/27/25
15:26
Troponin I 0.033
Vital Signs and I&O:
Vital Signs
Temp Pulse Resp BP Pulse Ox
98.0 F 55 20 125/86 95
01/29/25 07:34 01/29/25 07:36 01/29/25 07:34 01/29/25 07:36 01/29/25 07:34
Vital Signs
Temp Pulse Resp BP Pulse Ox
98.0 F 55 20 125/86 95
01/29/25 07:34 01/29/25 07:36 01/29/25 07:34 01/29/25 07:36 01/29/25 07:34
Intake & Output
01/27/25 01/28/25 01/29/25 01/30/25
06:59 06:59 06:59 06:59
Intake Total 240 / 240 360 / 360
Output Total 900 / 900
Balance 240 / 240 -540 / -540
Physical Exam
Physical Exam
GEN: No distress, awake, alert, oriented x3
HEENT: supple, anicteric, mmm
LUNGS: CTA /l, no wheezes/rales
CV: Reg, S1/S2, no murmur, rub or gallop
EXT: No clubbing or cyanosis, trace LE edema b/l
NEURO: Gross non-focal
SKIN: No rash, warm, dry
[2025-01-29] MEDS: TOPROL XL 12.5 MG PO (10:06)
[2025-01-29] MEDS: PACERONE 200 MG PO (10:06)
[2025-01-29] MEDS: LASIX 40 MG PO (10:06)
[2025-01-29] MEDS: PROTONIX 40 MG PO (10:06)
[2025-01-29] MEDS: FLOMAX 0.4 MG PO (10:07)
[2025-01-29] MEDS: LOW STRENGTH ASPIRIN 81 MG PO (10:07)
[2025-01-29] MEDS: FOLVITE 1 MG PO (10:07)
[2025-01-29] MEDS: ALDACTONE 25 MG PO (10:09)
--- NOTE | 2025-01-29 10:33 | W.DCSUMMARY ---
Addendum entered and electronically signed by Enrrique Potter MD 01/30/25 09:35:
Date of Dishcarge: 01/30/2025
Original Note:
Discharge Summary
Discharge Data
Date of Admission: 01/27/25
Date of Discharge: 01/29/25
-
Pending Results: No
Hospital Course
Primary diagnosis:
Wide-complex tachycardia likely ventricular tachycardia status post electrical cardioversion in the ER 01/28/2025
Secondary diagnosis:
History of ventricular tachycardia
Status post ICD placement in June 2024
Coronary artery disease with prior non-ST elevation myocardial infarction
Heart failure with mildly reduced ejection fraction
History of cirrhosis
Hospital course:
Patient was referred from SNF facility because of elevated heart rate. He was in wide-complex tachycardia. He was having shortness of breath 2 days prior. Denied any palpitation. Was difficult to discern if atrial tachycardia with RVR or
ventricular tachycardia. Adenosine failed to change the rhythm and he was ultimately cardioverted in the ER to sinus rhythm.
EP felt the tachyarrhythmia was most likely VT. They did interrogate his ICD device , his presenting rate of 140 was below the VT detection and AT/AF detection so this was not stored for review. ICD was reprogrammed for VT detection and therapy at
130 bpm and AF/VT detection at 133 bpm. He remained in sinus rhythm with no further tachyarrhythmias. He was maintained on amiodarone; given recurrent VT on amiodarone EP recommended eventual EP study and ablation and plan as an outpatient. If it
reoccurs with the ventricular tachycardia soon they may consider increasing amiodarone dose.
There is element of heart failure exacerbation with prolonged tachyarrhythmia and he was given IV Lasix and was switched to home dose of Lasix 40 mg.
Today he voices no specific complaints. Denies chest pain, palpitations, shortness of breath or dizziness. No nausea vomiting. Tolerating diet.
Afebrile. Blood pressure 125/86. Saturating well on room air.
Chest was clear to auscultation.
Hemoglobin 13.9, platelets of 99 which is a change. Will arrange repeat CBC in a week.
Creatinine was 0.6
Pulse stable for discharge from cardiology standpoint.
Medically as well stable for discharge based facility.
Consultants on board:
Cardiology-Edinson Castillo
Portions of this chart may have been created with voice recognition software. Occasional wrong word or 'sound alike' substitutions may have occurred due to the inherent limitations of voice recognition software.
Discharge Plan
-
Patient Disposition: Alf/SNF
Discharge Diagnosis/Procedures: Wide-complex tachycardia likely ventricular tachycardia status post electrical cardioversion in the ER
History of ventricular tachycardia s/p Medtronic ICD in June 2024
Moderate CAD
Diet: Low Cholesterol and 2 Gram Sodium
Activity: As tolerated
Driving Restrictions: Not until seen by your Dr
Bathing Restrictions: None
Specialty Instructions: Weigh Daily- Call MD for wt gain/loss 3 lbs overnight/5 lbs in 1 week
Referrals:
Kwadwo Jewell MD [Family Provider, Family Practice] - in less than 1 week
Tita Jung CRNP [Specified Professional Personl, Cardiology] - 02/15/25 1:40 pm
Referral Note: You have a follow up visit with Dr. Milner's [employer], Tita Jung, at the [facility] office. Please call with questions.
Prescriptions:
Continued
acetaminophen 325 mg Tablet
650 mg PO Q6H PRN (Reason: mild pain, temp>100.4)
trazodone 50 mg Tablet
100 mg PO HS
magnesium hydroxide [Milk of Magnesia] 400 mg/5 mL Suspension
30 ml PO HSPRN PRN (Reason: if no bm in 3 days)
tamsulosin 0.4 mg Capsule
0.4 mg PO HS
bisacodyl 10 mg Suppository
10 mg DC DAILYPRN PRN (Reason: if no results from [facility])
pantoprazole 40 mg Tablet,Delayed Release (Dr/Ec)
40 mg PO DAILY
Fleet Enema 19-7 gram/118 mL Enema
118 ml DC DAILYPRN PRN (Reason: if no results after bisacodyl)
folic acid 1 mg Tablet
1 mg PO DAILY
furosemide 40 mg Tablet
40 mg PO DAILY Qty: 30 0RF
atorvastatin 80 mg Tablet
80 mg PO QPM Qty: 30 0RF
spironolactone 25 mg Tablet
25 mg PO DAILY Qty: 30 0RF
Rx Instructions:
hold SBP <110
aspirin 81 mg Tablet,Chewable
81 mg PO DAILY Qty: 30 0RF
metoprolol succinate 25 mg Tablet Extended Release 24 Hr
12.5 mg PO DAILY Qty: 30 0RF
lorazepam 0.5 mg Tablet
0.5 mg PO HS Qty: 5 0RF
lactulose 10 gram/15 mL Solution
45 ml PO DAILY Qty: 0 0RF
amiodarone 200 mg Tablet
200 mg PO DAILY
guaifenesin 600 mg Tablet Extended Release 12hr
1 mg PO
diclofenac sodium 1 % Gel
4 g TOPICAL BID
Discontinued
acetaminophen 500 mg Tablet
1,000 mg PO Q6H PRN (Reason: mod pain)
Care Plan Goals
Care Plan Goals:
Problem: Readiness for enhanced knowledge related to diagnosis and treatment plan
Goal: Understand your diagnosis and treatment plan needs, including medications if applicable.
Instructions: Know your diagnosis, underlying causes and treatment plan options, including medications if applicable. Consult with your health care team to learn about your diagnosis and treatment plan, including medications if applicable.
Discharge Date and Time
Print Language: TELUGU
[2025-01-29 11:28] VITALS: BP 109/84
--- NOTE | 2025-01-29 14:09 | CM ---
spoke to pt in room, he lives at [facility], he is agreeable to return when medically stable. he is able to go [facility].
[2025-01-29 15:35] VITALS: BP 105/75
[2025-01-29] MEDS: LIPITOR 80 MG PO (18:28)
[2025-01-29 19:21] VITALS: BP 107/69
[2025-01-29] MEDS: DESYREL 50 MG PO (22:09)
[2025-01-29 22:53] VITALS: BP 126/86
[2025-01-29] MEDS: ATIVAN 0.5 MG PO (22:53)
--- NOTE | 2025-01-30 01:22 | PTCARENOTE ---
Patient sleeping at this time. No complaints. A-paced rhythm on tele in 50s. will continue to monitor.
[2025-01-30 04:26] VITALS: BP 122/83
[2025-01-30] MEDS: TYLENOL 650 MG PO (04:29)
[2025-01-30 04:32] VITALS: BMI 25.4
[2025-01-30 07:22] VITALS: BP 103/70
[2025-01-30 09:04] VITALS: BP 105/75
[2025-01-30] MEDS: ALDACTONE 25 MG PO (09:04)
[2025-01-30] MEDS: LOW STRENGTH ASPIRIN 81 MG PO (09:05)
[2025-01-30] MEDS: PACERONE 200 MG PO (09:05)
[2025-01-30] MEDS: FLOMAX 0.4 MG PO (09:05)
[2025-01-30] MEDS: PROTONIX 40 MG PO (09:05)
[2025-01-30] MEDS: FOLVITE 1 MG PO (09:05)
[2025-01-30] MEDS: TOPROL XL 12.5 MG PO (09:05)
[2025-01-30] MEDS: LASIX 40 MG PO (09:05)
--- NOTE | 2025-01-30 09:30 | W.PN.HOSP.TC ---
Today's Communication/Plan
-
dc
Assessment / Plan
Assessment / Plan
69-year-old with past medical history significant for proximal atrial fibrillation status post cardioversion complicated by symptomatic bradycardia and now status post AICD pacemaker, liver cirrhosis, GERD, BPH presenting to the emergency department
with persistent tachycardia found to be in SVT and is now status post cardioversion in the emergency department with relatively low blood pressure after the procedure and referred to hospitalist for observation.
PLAN:
Borad complex tachycardia status post cardioversion without recurrence
ICD in place
Suspected VT by EP
� Continue on patient's metoprolol
� Continue patient's amiodarone .
- OP eval for ablatino . ICD reprogrammed
CAD�recent cardiac cath with nonobstructive CAD on dual antiplatelet therapy
� Continue aspirin Plavix and statin
Liver cirrhosis
� Continue patient's lactulose
� Continue furosemide and spironolactone with hold parameters
Recent Gastroenteritis
-diarrhea resolved
DVT prophylaxis�SCDs for now
CODE STATUS�full code
Medically stable for DC home today
Anticipated Discharge: Today
Subjective/Interval History
-
Date of Service: January 30, 2025
No overnight events. Voices no specific complaints. Denies any chest pain, palpitations or shortness of breath. No dizziness.
Objective Data
-
Vital Signs:
Vital Signs
Temp Pulse Resp BP Pulse Ox
98.4 F 69 14 105/75 96
01/30/25 07:22 01/30/25 09:04 01/30/25 07:22 01/30/25 09:04 01/30/25 07:22
I&O
01/29/25 01/30/25 01/31/25
06:59 06:59 06:59
Intake Total 360 / 360 1979
Output Total 900 / 900
Balance -540 / -540 1979
Physical Exam
-
General: No Apparent Distress
HEENT: Moist Mucous Membranes
Respiratory: Non Labored Respirations; Negative Accessory Resp Muscle Use
Cardiac: Regular Rhythm and S1/S2; Negative Tachycardic
GI: Soft
Neuro: AO x 3
Psych: Calm
--- NOTE | 2025-01-30 09:49 | PTCARENOTE ---
pt is AOx3, no complaints of pain or discomfort. Plan for discharge later this AM. Report called to Aleax Shelton. Call triana within reach.
--- NOTE | 2025-01-30 10:24 | W.PN.CARDCBS ---
Today's Communication / Plan
-
Okay for discharge
Look into SGLT2 inhibitor and Entresto cost and proceed if affordable and patient agreeable
Impression / Plan
-
PCP: Dr. Cifuentes
Accounts Payable Professional: None, initial consultation during prior admission Dr. Wendi Milner
Impression:
Presented w/ elevated HR
Wide-complex tachycardia, likely VT
s/p CV in ER to SR 01/28/2025
h/o VT
s/p DC [employer] ICD 06/29/2024
Post cardioversion sinus arrest Requiring atropine
Sinus bradycardia
Chest pain
Abnormal EKG
Elevated troponin
Moderate CAD without culprit lesion
Possible history of prior atrial fibrillation
Hyponatremia
Hyperkalemia on outpatient Aldactone 100 mg daily
Alcoholic cirrhosis with history of hepatic encephalopathy
Prior history of therapeutic paracentesis, last 6 months ago
Hepatitis C, per GI consult found in ECW
Anasarca/venous insufficiency/chronic lower extremity edema
History of hypertension
Prior alcoholic
Resident at [facility] 06/25/2024: Dominance: Right. Left Main): patent. LAD: Mid LAD 40 to 50% stenosis just distal to D2 takeoff with ESTEFANI-3 flow into the distal vessel. D2 is a small caliber vessel with 2 serial 50 to 60% stenoses with ESTEFANI-3 flow into the distal
portion. LCx: patent with LI. RCA: Distal smooth 60 to 70% stenosis but with ESTEFANI-3 flow into the distal vessels. No intervention performed.
Cardiac Output : 5.8 L/min by Kati calculation; Cardiac Index : 2.67 L/min/m-2 by Kati calculation; Systemic vascular resistance: 874 dsc^(-5) on 6 mcg of Levophed. Pulmonary vascular resistance: 1.80 luna unit
Echo 06/25/2024: EF 48%. Mild basal inferior and basal�mid inferolateral hypokinesis. Enlarged right ventricle with mildly reduced RV systolic function. Biatrial dilatation. Trace mitral regurgitation. Mild tricuspid regurgitation. Minimal
aortic sclerosis. Estimated pulmonary artery pressure 20 mmHg. No pericardial effusion.
Echo 01/03/2025: EF 40-45%, mild global hypokinesis, mild MR, trace AR, PAP 23 mmHg
Plan:
-Presented with elevated HR from nursing facility. In wide complex tachyarrhythmia, likely VT. Failed to convert w/ adenosine in ER, s/p CV in ER 01/27 to SR.
-Remains in SR on review of telemetry overnight. No further arrhythmias noted
-Presenting rate of 140 bpm was below VT and AT/AF detection on device. Reprogrammed device parameters on 01/28 to allow for VT detection and therapy at 130 bpm and AT/AF detection at 133 bpm.
-Continue amiodarone 200mg daily and Toprol 12.5mg daily. If recurrent VT noted, could increase amiodarone.
-Would benefit from eventual EP study and ablation to target his VT. Will discuss as OP.
-Has had some SOB noted. Chest xray without evidence of pulmonary edema, however proBNP was 8880 on admission.
-Given a single dose of IV lasix 01/28. Weight down 2lbs overnight to 192 lbs, down 5lbs this admission. Creat stable at 0.6.
-Continue PO lasix 40mg daily at discharge.
-Echo 12/2024 with EF 40-45%, No need to repeat. Continues on medical therapy with spironolactone and Toprol.
-Will look into the cost of both Entresto and SGLT2 inhibitors. These would likely benefit beneficial in the patient.
-Follow up arranged.
Progress Note - Accounts Payable Professional
Subjective
Date of Service: January 30, 2025
No complaints. Many questions.
Objective
Labs:
01/29/25 04:22
01/29/25 04:22
Labs
Hgb 13.9 g/dL (13.0-18.0) 01/29/25 04:22
Hct 40.1 % (39.0-52.0) 01/29/25 04:22
Plt Count 99 10^3/uL (130-400) L D 01/29/25 04:22
PT 15.0 Sec (11.4-14.6) H 01/27/25 15:26
INR 1.17 01/27/25 15:26
APTT 24.8 Sec (23.4-35.0) 01/27/25 15:26
Sodium 132 mmol/L (135-145) L 01/29/25 04:22
Potassium 3.9 mmol/L (3.5-5.1) 01/29/25 04:22
BUN 21 mg/dl (9-20) H 01/29/25 04:22
Creatinine 0.6 mg/dL (0.7-1.3) L 01/29/25 04:22
Glucose 88 mg/dl (70-99) 01/29/25 04:22
Troponins
01/27/25
15:26
Troponin I 0.033
Vital Signs and I&O:
Vital Signs
Temp Pulse Resp BP Pulse Ox
98.4 F 69 14 105/75 96
01/30/25 07:22 01/30/25 09:04 01/30/25 07:22 01/30/25 09:04 01/30/25 07:22
Vital Signs
Temp Pulse Resp BP Pulse Ox
98.4 F 69 14 105/75 96
01/30/25 07:22 01/30/25 09:04 01/30/25 07:22 01/30/25 09:04 01/30/25 07:22
Intake & Output
01/28/25 01/29/25 01/30/25 01/31/25
06:59 06:59 06:59 06:59
Intake Total 240 / 240 360 / 360 1979
Output Total 900 / 900
Balance 240 / 240 -540 / -540 1979
Physical Exam
Physical Exam
General: Well developed, well nourished in NAD.
Heart: Non displaced PMI, RRR, no murmurs, No S3, S4, no rubs.
Lungs: Clear to auscultation bilaterally, no wheeze, rhonchi, rubs bilaterally,
normal expiratory phase.
Extremities: No clubbing, cyanosis or edema bilaterally.
Neuro: Grossly nonfocal, awake, alert and oriented x3.
[2025-01-30 10:32] VITALS: BP 117/85
[2025-01-30 10:39] VITALS: BP 110/73
--- NOTE | 2025-01-30 11:16 | CM ---
priced entresto and fardeangeloga with pts perscript plan - both copays is zero dollars/mo
== END 2025-01-30 11:02 ==
LOC: IVU 19:27
PROVIDERS: Hospitalist; Registered Nurse; ADMITTING PHYSICIAN Internal Medicine; ATTENDING PHYSICIAN Internal Medicine; CONSULT PHYSICIAN Internal Medicine Cardiovascular Disease; EMERGENCY PHYSICIAN Emergency Medicine; FAMILY PHYSICIAN Family Medicine
PROC: 5A2204Z Restoration of Cardiac Rhythm, Single (ICD-10-PCS; 2025-01-27)
DX: I47.20 Ventricular tachycardia, unspecified (principal); I25.10 Atherosclerotic heart disease of native coronary artery without angina pectoris; I50.23 Acute on chronic systolic (congestive) heart failure; I11.0 Hypertensive heart disease with heart failure; K70.30 Alcoholic cirrhosis of liver without ascites; I48.0 Paroxysmal atrial fibrillation; R00.1 Bradycardia, unspecified; N40.0 Benign prostatic hyperplasia without lower urinary tract symptoms; F32.A Depression, unspecified; F41.9 Anxiety disorder, unspecified; K21.9 Gastro-esophageal reflux disease without esophagitis; B19.20 Unspecified viral hepatitis C without hepatic coma; Z95.810 Presence of automatic (implantable) cardiac defibrillator; I25.2 Old myocardial infarction; E87.5 Hyperkalemia; E87.1 Hypo-osmolality and hyponatremia; K52.9 Noninfective gastroenteritis and colitis, unspecified; Z11.52 Encounter for screening for COVID-19; Z87.891 Personal history of nicotine dependence
CPT/HCPCS: 71045; 80048; 80053; 81003; 81015; 83735; 83880; 84100; 84484; 85025; 85610; 85730; 87502; 87811; 92960; 93005; 93289; 96374; 96376; 99152; 99291; G0378; J0153